=== PATIENT | male | born 1940 | race Caucasian/White ===

== ENCOUNTER → 2023-08-07 10:07 | Outpatient (REF) | payer OTHER, SELFPAY | LOC: HWRAD 10:07 | PROVIDERS: ATTENDING PHYSICIAN Internal Medicine Critical Care Medicine; FAMILY PHYSICIAN Family Medicine | DX: R63.4 Abnormal weight loss (principal); R05.3 Chronic cough | CPT/HCPCS: 71250 ==

== ENCOUNTER 2023-08-20 13:52 | Inpatient (IN) | payer OTHER, SELFPAY ==
[2023-08-20] VITALS (10 sets, daily range): BP systolic 106–142; BP diastolic 59–73; BMI 19.8
--- NOTE | 2023-08-20 09:54 | ED.GENMED ---
History of Present Illness
General
Chief Complaint: Breathing Problem
Source: patient
Exam Limitations: none
Time Seen by Provider: 08/20/23 09:29
Travel History
Have you had any contact with someone who has COVID-19?: No
Do you have any symptoms of coronavirus? Fever > 100 degrees, chills, cough, shortness of breath, sore throat, loss of taste or smell, muscle aches, or headache?: No
History of Present Illness
History of Present Illness:
82-year-old male with history of COPD, cardiac disease presents complaining of increased shortness of breath and cough over the past several days. He has been tired recently. He saw cardiology 2 weeks ago was diagnosed with new onset atrial
flutter. He had a Holter monitor that was just handed in 5 days ago. He also recently had a lung CAT scan per his daughter. However over the past several days they noted more productive cough. No measurable fever. He is having trouble because
of the cough. They deny any leg swelling or significant weight gain. No other complaints at this
Past History
Past History
ED Past Medical History: NM and Other (GI bleed, coronary artery disease with NM and stent, COPD, hypertension)
Social History
Tobacco: Smoker
Alcohol: None
Family History
Family History: CAD
Phy Exam
Physical Exam
Physical Exam:
General: Well-appearing male no acute respiratory distress
HEENT: Normocephalic atraumatic neck is supple
: Regular rate and rhythm no murmurs
Lungs: Wheeze heard at the left base otherwise clear
Extremities: No cyanosis or edema
Skin: Warm no rash
Scores
Heart Failure Risk
Heart Failure Risk Score: Not Applicable
Course
Orders/Labs/Results
Orders:
Orders
08/20/23 09:23
Electrocardiogram (*1) Urgent
Reason for Study: Chest Pain
EKG- Treatment ONCE
08/20/23 09:41
CR Chest - 2 Views Urgent
Comment:
Reason For Exam: cough, sob
08/20/23 10:05
COVID-19 Antigen Urgent
Source: Nasal Swab
Complete Blood Count/With Diff Urgent
Comprehensive Metabolic Panel Urgent
NT-proBNP Urgent
Troponin I Urgent
Influenza A+B Rapid Molecular Urgent
DEA Source: Nasal Swab
Specimen Description:
Abnormal Lab Results
08/20/23
10:05
RBC 4.26 L 10^6/uL
(4.70-6.10)
MCV 97.4 H fL
(80.0-94.0)
MCH 33.6 H pg
(27.0-31.0)
MPV 11.0 H fL
(7.4-10.4)
Absolute Neuts (auto) 7.1 H 10^3/uL
(1.4-6.5)
Absolute Monos (auto) 0.9 H 10^3/uL
(0.1-0.6)
Neutrophils % 77.2 H %
(42.2-75.2)
Lymphocytes % 12.6 L %
(20.5-51.1)
Monocytes % 9.5 H %
(1.7-9.3)
Sodium 133 L mmol/L
(135-145)
Chloride 97 L mmol/L
(98-107)
BUN 40 H mg/dl
(9-20)
Glucose 124 H mg/dl
(70-99)
AST 77 H U/L
(17-59)
08/20/23 10:05
08/20/23 10:05
Vital Signs
Initial and Last Documented VS:
Initial Vital Signs
Temp Pulse Resp BP Pulse Ox
97.5 F 69 16 124/70 95
08/20/23 09:19 08/20/23 09:19 08/20/23 09:19 08/20/23 09:19 08/20/23 09:19
Last Documented Vital Signs
Temp Pulse Resp BP Pulse Ox
97.5 F 70 17 109/66 93
08/20/23 09:19 08/20/23 12:30 08/20/23 12:30 08/20/23 12:00 08/20/23 12:30
MDM/Problems Addressed
Differential Diagnosis Includes:
Cough with shortness of breath. No evidence clinically of volume overload. EKG here she does show atrial flutter with 41 conduction. Will obtain BNP chest x-ray and labs.
I reviewed the chest CT scan dated August 07, 2023 which shows emphysema with bronchiectasis.
*Critical Care Note
Total Time (30-74mins, 75-104mins- exclusive of procedures): Not Applicable
Update Note
Update Note:
Workup here demonstrates negative chest x-ray. Patient however does go into bradycardic rhythm. At times he drops into the 30s with flutter. Patient is here with shortness of breath dyspnea on exertion. He has newly diagnosed a flutter. Will
keep in hospital for further evaluation cardiology and hospitalist made aware
ED Attending Note
-
Portions of this chart may have been created with voice recognition software.� Occasional wrong word or��sound alike� substitutions may have occurred due to the inherent limitations of voice recognition software.
Discharge Plan
Departure
Patient Disposition: Admit
Date of Disposition: 08/20/23
Time of Disposition: 12:42
Admit to: Telemetry
Presentation/result/management discussed w/ accepting MD/DO: Hospitalist
Discharge Problem:
Bradycardia
Prescriptions:
No Action
atorvastatin [Lipitor] 80 MG tablet
80 mg PO DAILY
carvedilol 6.25 MG tablet
6.25 mg PO BID
aspirin 81 MG tablet,delayed release (DR/EC)
81 mg PO DAILY
pantoprazole [Protonix] 40 MG tablet,delayed release (DR/EC)
40 mg PO DAILY
tthvxdjuxsnw-vomindlz-ankoiz [Centrum Silver] 1 EACH tablet
1 ea PO DAILY
hydrocodone-acetaminophen 1 TABLET tablet
0.5 tab PO Q4HPRN PRN (Reason: pain)
irbesartan 150 MG tablet
150 mg PO DAILY
Referrals:
Jessica Madrigal PA [Family Provider] -
Interventions
Interventions:
*Risk Screen - Suicide Last Done: 08/20/23 10:15
*General Assessment Last Done: 08/20/23 10:15
*Neglect/Abuse Screening Last Done: 08/20/23 10:15
*ED COVID-19 Vaccine History Last Done: 08/20/23 09:19
ED- Cardiac Assessment Last Done: 08/20/23 10:30
ED- Pulmonary Assessment Last Done: 08/20/23 10:15
[2023-08-20 10:33] LABS: ALT (SGPT) 28 U/L (0-50); AST (SGOT) 77 U/L (17-59); Albumin 3.6 g/dl (3.5-5.0); Alkaline Phosphatase 80 U/L (38-126); Blood Urea Nitrogen 40 mg/dl (9-20); Calcium 9.1 mg/dl (8.4-10.2); Carbon Dioxide 27 mmol/L (22-30); Chloride 97 mmol/L (98-107); Estimated Creatinine Clearance 42 ml/min; Glucose 124 mg/dl (70-99); Potassium 4.5 mmol/L (3.5-5.1); Sodium 133 mmol/L (135-145); Total Bilirubin 0.6 mg/dl (0.2-1.3); Total Protein 6.3 g/dl (6.3-8.2); eGFR > 60.00
[2023-08-20 10:45] LABS: NT-proBNP 1210 pg/ml; Troponin I 0.034 ng/ml
[2023-08-20 10:47] LABS: % Basophils 0.2 % (0-2); % Eosinophils 0.2 % (0-6); % Immature Granulocytes 0.3 % (0-0.5); % Lymphocytes 12.6 % (20.5-51.1); % Monocytes 9.5 % (1.7-9.3); % Neutrophils 77.2 % (42.2-75.2); Absolute Lymphocytes 1.2 10^3/uL (1.2-3.4); Absolute Monocytes 0.9 10^3/uL (0.1-0.6); Absolute Neutrophils 7.1 10^3/uL (1.4-6.5); COVID-19 Antigen Negative (Negative); Hematocrit 41.5 % (39.0-52.0); Hemoglobin 14.3 g/dL (13.0-18.0); Mean Corp Hgb Conc. 34.5 g/dL (33.0-37.0); Mean Corpuscular Hgb 33.6 pg (27.0-31.0); Mean Corpuscular Volume 97.4 fL (80.0-94.0); Nucleated Red Blood Cells % 0 % (-); Platelet Count 188 10^3/uL (130-400); Red Blood Cell Count 4.26 10^6/uL (4.70-6.10); Red Cell Dist. Width 13.3 % (11.5-14.5); White Blood Cell Count 9.3 10^3/uL (4.8-10.8)
--- NOTE | 2023-08-20 13:08 | HPS.HSE ---
Family Physician
-
Family Physician: Jessica Madrigal
Chief Complaint
-
Shortness of breath, intermittent wet cough
History of Present Illness
HPI: 82-year-old male with PMH COPD, A flutter, p/w CP, SOB and wet cough that started a few days ago.�
He saw cardiology 2 weeks ago and was diagnosed with new onset atrial flutter.�He had a Holter monitor that was just handed in 5 days ago.�He also recently had a lung CAT scan per his daughter.� However over the past several days they noted more
productive cough.� No measurable fever.� He is having trouble because of the cough.� They deny any leg swelling or significant weight gain.� No other complaints at this
Medical History
Past Medical History
Past Medical History: Reports Other
Additional Past Medical History:
COPD
A flutter
AAA
Past Surgical History: Reports Other
Additional Past Surgical History:
cardiac stent 2004
Social History
Tobacco: Smoker (Half pack per day for about 60 years)
Alcohol: None
Living: With Family
Family History
Family History: Not pertinent
Allergies / Home Medications
Allergies reflects when Allergies were last updated in [employer].
Home Medications with original date entered in [employer]
Allergy/Medication List:
Allergies
Allergy/AdvReac Type Severity Reaction Status Date / Time
Bee Stings Allergy Anaphylaxis Uncoded 08/20/23 09:22
Home Medications
aspirin 81 mg tablet,delayed release 81 mg PO DAILY 05/17/09
atorvastatin 80 mg tablet (Lipitor) 80 mg PO DAILY 05/17/09
irbesartan 150 mg tablet 150 mg PO DAILY 11/24/17
albuterol sulfate 2.5 mg/3 mL (0.083 %) solution for nebulization 2.5 mg inhalation R TID 08/20/23
albuterol sulfate 90 mcg/actuation aerosol inhaler 1 puff inhalation R Q4HPRN PRN sob 08/20/23
carvedilol 12.5 mg tablet 12.5 mg PO BID 08/20/23
doxycycline hyclate 100 mg tablet 100 mg PO BID 08/20/23
fluticasone fur. 200 mcg-umeclid 62.5 mcg-vilant 25 mcg inhalat.powder (Trelegy Ellipta) 1 inh inhalation R DAILY 08/20/23
guaifenesin 600 mg tablet, extended release 12 hr (Mucinex) 600 mg PO QPM 08/20/23
hydrocodone 10 mg-acetaminophen 325 mg tablet 1 tab PO TIDPRN PRN severe pain 08/20/23
tamsulosin 0.4 mg capsule 0.4 mg PO HS 08/20/23
Review of Systems
-
Respiratory: Reports See HPI
Cardiac: Reports See HPI
Physical Exam
Vital Signs
Vital Signs
Temp Pulse Resp BP Pulse Ox
36.4 C 70 17 109/66 93
08/20/23 09:19 08/20/23 12:30 08/20/23 12:30 08/20/23 12:00 08/20/23 12:30
Physical Exam
General: Well Developed, Well Nourished, No Apparent Distress, Comfortable and Conversant
HEENT: NormoCephalic, Moist mucous membranes and Atraumatic
Respiratory: Clear and Non Labored Respirations; No Accessory Resp Muscle Use
Cardiac: S1/S2 and Regular Rhythm; No Murmur or Rub
GI: Soft, Non Tender, Non Distended and Normal Bowel Sounds; No Organomegaly
Rectal: Deferred by Provider
Musculoskeletal: No Clubbing, No Cyanosis and No Edema
Skin: No Rash
Neuro: Awake
Psych: Calm and Intact Judgment/Insight
Laboratory Results
-
08/20/23 10:05
08/20/23 10:05
Laboratory Results
Total Bilirubin 0.6 mg/dl (0.2-1.3) 08/20/23 10:05
AST 77 U/L (17-59) H 08/20/23 10:05
ALT 28 U/L (0-50) 08/20/23 10:05
Alkaline Phosphatase 80 U/L (38-126) 08/20/23 10:05
Troponin I 0.034 ng/ml 08/20/23 10:05
Data Reviewed
-
Diagnostic Radiology: Report Reviewed by me
Lab Data: Labs Reviewed by me
Impression/Plan
-
HPI: 82-year-old male with PMH COPD, A flutter, p/w CP, SOB and wet cough that started a few days ago.�
He saw cardiology 2 weeks ago and was diagnosed with new onset atrial flutter.�He had a Holter monitor that was just handed in 5 days ago.�He also recently had a lung CAT scan per his daughter.� However over the past several days they noted more
productive cough.� No measurable fever.� He is having trouble because of the cough.� They deny any leg swelling or significant weight gain.� No other complaints at this
A/P:
# SOB, mild chest pain, wet cough likely due to acute on chronic systolic heart failure
# recent diagnosis of atrial flutter s/p Holter monitor
CXR without cardiopulmonary process.
Of note, patient's weight is not significantly higher than before
Start IV Lasix 40 mg x1, then Lasix 20 mg daily, check daily weight, I/O
Check echo
Card CS
# Troponin elevation likely non-ischemic myocardial injury
Chest pain has much resolved
Troponin 0.034, cont to trend to plateau/peak
# Bradycardia likely due to coreg
Hold further Coreg
# Hyponatremia
# Elevated AST likely due to acute CHF
# COPD
# Active smoking, nicotine dependence
Provide nicotine patch
DVT ppx: Lovenox SQ
FC
[2023-08-20] MEDS: LASIX 40 MG IV (14:20)
--- NOTE | 2023-08-20 14:52 | CM ---
Patient seen at bedside. Patient states that he lives with his son in law and that the home is a 5 bedroom home. Patient has no difficulty with getting around and uses a cane only occasionally in grass. Patient has no other DME. Patient stated he
has no VN or past need for SNF. Patient stated that his PCP is Dr. Madrigal and he uses the [facility] in [place]. Patient states that he is independent of ADL's and IADL's. Patient drives self. CM will continue to follow for discharge planning needs.
Plan; home with no needs anticipated.
--- NOTE | 2023-08-20 15:17 | CON.CAR ---
Addendum entered and electronically signed by Michael Saleh MD 08/20/23 16:50:
I saw and examined the patient.
The DRIER HELPER or PA's note was reviewed and I agree with the note.
Comment: General: Well developed, well nourished in NAD.
Neck: Supple, no JVD, HJR, carotids +2 B/L, no bruits bilaterally.
Heart: Non displaced PMI, irregular, no murmurs, No S3, S4, no rubs.
Lungs: Clear to auscultation bilaterally, no wheeze, rhonchi, rubs bilaterally,
normal expiratory phase.
Abdomen: Normal bowel sounds, soft, non-tender, non-distended.
Extremities: No clubbing, cyanosis or edema bilaterally.
Neuro: Grossly nonfocal, awake, alert and oriented x3.
Will decrease Coreg dose and assess bradycardia. Will start Eliquis as well. Check echocardiogram. Doubt CHF. Being treated as possible mild COPD exacerbation. Hopefully stable for discharge on 08/20
Original Note:
Consultation
Consultation Request
Date/Time Consultation Performed: 08/20/23
Requesting Provider: Al Beltran PA-C
Performing Provider: Maxine Julian PA-C for Dr. Saleh
Reason for Consultation: bradycardia, aflutter
Medical History
-
Chief Complaint: SOB, fatigue
History of Present Illness:
Patient is an 82-year-old male with history of CAD including MICA SIZER of RCA and LCx PCI in 2004, ischemic cardiomyopathy with EF 45%, hypertension, abdominal aortic aneurysm, COPD/emphysema with ongoing smoking, renal insufficiency who was recently
diagnosed with atrial flutter, rate controlled of unclear duration. He underwent 7-day monitoring specialist which was completed, however results not yet available. He was ordered echocardiogram, scheduled for 09/29/2023. Head CT was also discussed due
to symptoms of vague fuzziness/hollow feeling in his head prior to Eliquis being started. He was also recently seen by pulmonary and treated with a course of doxycycline for bronchitis. He had recent CT of the chest with evidence of emphysema. He
presents to emergency room due to complaints of cough and shortness of breath. Per daughter he has felt washed out and tired over the last several days. Also with congestion and 'fullness' in his chest. No lower extremity edema or weight gain. He
denies shortness of breath currently. He states he chronically has some wheezing. He appears somewhat forgetful, and was not personally able to tell me why he was in the emergency room. Cardiology consulted as he was noted to be markedly
bradycardic in aflutter on telemetry. On Coreg 12.5 mg twice daily as an outpatient. Currently heart rate in the 60s on telemetry in ER.
PMH:
recent diagnosis atrial flutter, rate controlled of unclear duration
CAD with prior remote 'silent' MIs, PTCA to mid RCA, MICA SIZER of distal RCA and LCx PCI in 2004
ischemic cardiomyopathy with EF 45%
hypertension
dyslipidemia
abdominal aortic aneurysm
COPD/emphysema
ongoing smoking
Chronic bronchitis
renal insufficiency
Past Medical History
Past Medical History: Other (in HPI)
Social History
Tobacco: Smoker (1/2 ppd)
Alcohol: None
Living: With Family
Employment: Retired
Family History
Family History: Reviewed & Not Pertinent
Allergies / Home Medications
Allergy/AdvReac Type Severity Reaction Status Date / Time
Bee Stings Allergy Anaphylaxis Uncoded 08/20/23 09:22
Medication Instructions Recorded Confirmed Type
aspirin 81 mg tablet,delayed 81 mg PO DAILY 05/17/09 08/20/23 History
release
atorvastatin 80 mg tablet (Lipitor) 80 mg PO DAILY 05/17/09 08/20/23 History
irbesartan 150 mg tablet 150 mg PO DAILY 11/24/17 08/20/23 History
albuterol sulfate 2.5 mg/3 mL 2.5 mg inhalation R TID 08/20/23 08/20/23 History
(0.083 %) solution for nebulization
albuterol sulfate 90 mcg/actuation 1 puff inhalation R Q4HPRN PRN sob 08/20/23 08/20/23 History
aerosol inhaler
carvedilol 12.5 mg tablet 12.5 mg PO BID 08/20/23 08/20/23 History
doxycycline hyclate 100 mg tablet 100 mg PO BID 08/20/23 08/20/23 History
fluticasone fur. 200 mcg-umeclid 1 inh inhalation R DAILY 08/20/23 08/20/23 History
62.5 mcg-vilant 25 mcg
inhalat.powder (Trelegy Ellipta)
guaifenesin 600 mg tablet, 600 mg PO QPM 08/20/23 08/20/23 History
extended release 12 hr (Mucinex)
hydrocodone 10 mg-acetaminophen 1 tab PO TIDPRN PRN severe pain 08/20/23 08/20/23 History
325 mg tablet
tamsulosin 0.4 mg capsule 0.4 mg PO HS 08/20/23 08/20/23 History
Review of Systems
-
History Source: Patient and Family
All other systems: Negative unless noted
Physical Exam
Vital Signs
Temp Pulse Resp BP Pulse Ox
97.5 F 68 15 128/73 94
08/20/23 09:19 08/20/23 14:45 08/20/23 14:45 08/20/23 14:20 08/20/23 13:30
Lab Results
08/20/23 10:05
08/20/23 10:05
Troponin I 0.034 ng/ml 08/20/23 10:05
Pjf-V-Rmefeemeipr Pept 1210 pg/ml 08/20/23 10:05
Physical Exam
General: No Apparent Distress and Comfortable
HEENT: Normocephalic, Anicteric and Moist Mucous Membranes
Respiratory: Wheezes (mild exp wheezes R>L) and Non Labored Respirations
Cardiac: S1/S2 and Irregular Rhythm
GI: Soft, Non Tender, Non Distended and Normal Bowel Sounds
Musculoskeletal: No Clubbing, No Cyanosis and No Edema
Skin: Warm and Dry
Neuro: Awake, Alert, Oriented (to self, place) and Other (forgetful at times)
Impression / Plan
-
Primary Nurse Practitioner Physician Assistant: Dr. Hutson
Assessment:
Presentation with cough, SOB
COPD exacerbation
recent diagnosis atrial flutter, rate controlled of unclear duration, currently markedly [place]
CAD with prior remote 'silent' MIs, PTCA to mid RCA, MICA SIZER of distal RCA and LCx PCI in 2004
ischemic cardiomyopathy with EF 45%
hypertension
dyslipidemia
abdominal aortic aneurysm
COPD/emphysema
ongoing smoking
Chronic bronchitis
renal insufficiency
hyponatremia, mild
ECHO 10/31/2021: EF 45%, basal to mid inferolateral hypokinesis, basal inferior akinesis, stage I diastolic dysfunction, mild MR, mildly dilated left atrium
Lexiscan nuclear stress test 10/31/2021: Fixed defect in basal inferolateral, basal inferior, mid inferolateral, mid inferior segments consistent with infarction, EF 31%, no active significant coronary disease
Plan:
-Patient presents with cough and shortness of breath. covid and flu negative. [place] to be COPD exacerbation. Continue treatment per primary service
-proBNP 1210. Chest x-ray without acute cardiopulmonary disease. Does not appear volume overloaded. Doubt CHF. Of note was given 40 mg IV Lasix x 1 in ER 08/19. Assess response
-Remains in atrial flutter with markedly bradycardic heart rates at times. OP monitoring specialist not read as of yet. Currently heart rates improved in the 60s. Will decrease dose of Coreg from 12.5 mg twice daily to 3.125 mg twice daily and follow
closely on telemetry
-Check echo, last from 2021 with results as above. Cancel outpatient appointment for 09/28
-[id number] score of 4 for age, HTN, vascular disease. will plan to start eliquis 2.5mg BID based on age and weight. CM to assess cost to patient. OP head CT prior to starting OAC was discussed however patient without focal deficits. denies
history of bleeding or falls, confirmed with patient's daughter. stop asa as stents remote to reduce bleeding risk
-check TSH
-he is scheduled for OP abd US to reassess AAA
-d/w daughter via telephone
Data Reviewed
-
EKG: Tracing Personally Visualized and interpreted
Radiology: Report Reviewed by me
Medical Tests (Nuc Med, Echo etc): Report Reviewed by me
Labs: Labs Reviewed by me
Old Records: Reviewed
[2023-08-20] MEDS: VENTOLIN NEBULES INH (17:48)
[2023-08-20] MEDS: NICODERM TRANSDERMAL TRANSDERM (17:50)
[2023-08-20 19:05] LABS: Troponin I 0.028 ng/ml
[2023-08-20] MEDS: VENTOLIN NEBULES 2.5 MG INH (19:48)
[2023-08-20] MEDS: SYMBICORT 160/4.5 MCG INHALER 2 PUFF INH (19:48)
[2023-08-20] MEDS: FLOMAX 0.400000000000000022 MG PO (20:34)
[2023-08-20] MEDS: VIBRAMYCIN 100 MG PO (20:34)
[2023-08-20] MEDS: ELIQUIS 2.5 MG PO (20:34)
[2023-08-20] MEDS: COREG 3.125 MG PO (20:34)
[2023-08-20] MEDS: NORCO 5/325 2 TABLET PO (20:38)
[2023-08-21 00:55] LABS: Troponin I 0.032 ng/ml
[2023-08-21 03:55] VITALS: BP 122/65
[2023-08-21 06:00] VITALS: BMI 18.4
[2023-08-21 07:00] VITALS: BP 122/85
[2023-08-21] MEDS: SYMBICORT 160/4.5 MCG INHALER 2 PUFF INH ×2 (07:26→20:00)
[2023-08-21] MEDS: SPIRIVA RESPIMAT 2.5 MCG 2 PUFF INH (07:26)
[2023-08-21] MEDS: VENTOLIN NEBULES 2.5 MG INH ×3 (07:26→20:00)
[2023-08-21 07:39] LABS: Hematocrit 43.9 % (39.0-52.0); Hemoglobin 14.9 g/dL (13.0-18.0); Mean Corp Hgb Conc. 33.9 g/dL (33.0-37.0); Mean Corpuscular Hgb 33.6 pg (27.0-31.0); Mean Corpuscular Volume 99.1 fL (80.0-94.0); Mean Platelet Volume 10.7 fL (7.4-10.4); Platelet Count 200 10^3/uL (130-400); Red Blood Cell Count 4.43 10^6/uL (4.70-6.10); Red Cell Dist. Width 13.3 % (11.5-14.5); White Blood Cell Count 9.4 10^3/uL (4.8-10.8)
[2023-08-21 07:57] LABS: Blood Urea Nitrogen 51 mg/dl (9-20); Calcium 9.4 mg/dl (8.4-10.2); Carbon Dioxide 30 mmol/L (22-30); Chloride 96 mmol/L (98-107); Estimated Creatinine Clearance 36 ml/min; Glucose 114 mg/dl (70-99); Magnesium 1.5 mg/dl (1.6-2.3); Potassium 4.2 mmol/L (3.5-5.1); Sodium 135 mmol/L (135-145); eGFR 59.63
[2023-08-21] MEDS: LASIX 20 MG IV (08:09)
[2023-08-21] MEDS: LIPITOR 80 MG PO (08:09)
[2023-08-21] MEDS: VIBRAMYCIN 100 MG PO (08:09)
[2023-08-21] MEDS: COREG 3.125 MG PO (08:09)
[2023-08-21] MEDS: NICODERM TRANSDERMAL 14 MG TRANSDERM (08:09)
[2023-08-21] MEDS: ELIQUIS 2.5 MG PO ×2 (08:09→19:52)
[2023-08-21 10:46] VITALS: BP 114/70
--- NOTE | 2023-08-21 11:07 | W.PN.CARDCBS ---
Addendum entered and electronically signed by Kendrick Thomas MD 08/21/23 14:32:
I saw and examined the patient.
The Direct Care Counselor's note was reviewed and I agree with the note.
Comment:
GEN: No distress, awake, Ox3
HEENT: supple, anicteric, mmm
LUNGS: scatt rhonchi
CV: Irreg, S1/S2, / syst LSB, no gallop
ABD: soft, BS+, NT/ND
EXT: No edema
NEURO: Gross non-focal
SKIN: No rash
plan:
Still having episodes of elevated heart rate in atrial flutter. Will increase Coreg to 6.25 mg p.o. twice daily and watch for bradycardia. Outpatient Coreg dose was 12.5 mg twice daily.
Continue Eliquis.
Continue gentle diuresis and treatment of COPD with IV Lasix.
Continue medical therapy for coronary artery disease. Continue Coreg, high-dose atorvastatin, and Eliquis.
Original Note:
Today's Communication / Plan
-
increase coreg to 6.25mg BID
echo pending
TSH pending
continue eliquis 2.5mg BID
Impression / Plan
-
Primary Director Strategy: Dr. Hutson
Assessment:
Presentation with cough, SOB
COPD exacerbation
recent diagnosis atrial flutter, rate controlled of unclear duration, currently markedly [place]
CAD with prior remote 'silent' MIs, PTCA to mid RCA, QUANTITATIVE MANAGER of distal RCA and LCx PCI in 2004
ischemic cardiomyopathy with EF 45%
hypertension
dyslipidemia
abdominal aortic aneurysm
COPD/emphysema
ongoing smoking
Chronic bronchitis
renal insufficiency
hyponatremia, mild
ECHO 10/31/2021: EF 45%, basal to mid inferolateral hypokinesis, basal inferior akinesis, stage I diastolic dysfunction, mild MR, mildly dilated left atrium
Lexiscan nuclear stress test 10/31/2021: Fixed defect in basal inferolateral, basal inferior, mid inferolateral, mid inferior segments consistent with infarction, EF 31%, no active significant coronary disease
Plan:
-Patient presents with cough and shortness of breath. covid and flu negative. [place] to be COPD exacerbation. Continue treatment per primary service. patient remains with productive cough
-s/p dose of 40mg IV lasix 08/19 and IV lasix 20mg 08/20. weight down significantly if accurate. does not appear volume overloaded on exam. will await echo and likely stop further IV lasix in AM. was not on diuretic prior to admission
-remains in aflutter, now with improved HRs. at times with tachycardia particularly with ambulation. will increase coreg to 6.25mg BID and follow on tele (was on 12.5mg BID prior to admission)
-echo pending
-eliquis 2.5mg BID started this admission. OP asa stopped
-check TSH
-OP irbesartan on hold
-he is scheduled for OP abd US to reassess AAA
-d/w nursing
Progress Note - Director Strategy
Subjective
Date of Service: August 21, 2023
reports continued productive cough. no SOB, palpitations.
Objective
Labs:
08/21/23 07:23
08/21/23 07:23
Labs
Hgb 14.9 g/dL (13.0-18.0) 08/21/23 07:23
Hct 43.9 % (39.0-52.0) 08/21/23 07:23
Plt Count 200 10^3/uL (130-400) 08/21/23 07:23
Sodium 135 mmol/L (135-145) 08/21/23 07:23
Potassium 4.2 mmol/L (3.5-5.1) 08/21/23 07:23
BUN 51 mg/dl (9-20) H 08/21/23 07:23
Creatinine 1.2 mg/dL (0.7-1.3) 08/21/23 07:23
Glucose 114 mg/dl (70-99) H 08/21/23 07:23
Troponins
08/20/23 08/20/23 08/21/23
10:05 18:27 00:14
Troponin I 0.034 0.028 0.032
08/21/23
07:23
Troponin I 0.030
Vital Signs and I&O:
Vital Signs
Temp Pulse Resp BP Pulse Ox
97.6 F 80 14 114/70 97
08/21/23 10:46 08/21/23 10:46 08/21/23 10:46 08/21/23 10:46 08/21/23 10:46
Vital Signs
Temp Pulse Resp BP Pulse Ox
97.6 F 80 14 114/70 97
08/21/23 10:46 08/21/23 10:46 08/21/23 10:46 08/21/23 10:46 08/21/23 10:46
Intake & Output
08/19/23 08/20/23 08/21/23 08/22/23
07:59 07:59 07:59 07:59
Intake Total 960 / 960
Output Total 350 / 350
Balance 610 / 610
Physical Exam
Physical Exam
GEN: No distress, awake, alert, oriented x3
HEENT: supple, anicteric, mmm, eomi
LUNGS: mild exp wheezes B/L
CV: Irreg, S1/S2, no murmur
ABD: soft, BS+, NT/ND
EXT: No cyanosis, clubbing, edema
NEURO: Gross non-focal
SKIN: Warm, pink, dry. No rash
--- NOTE | 2023-08-21 12:03 | W.PN.HOSP.TC ---
Today's Communication/Plan
-
see A/P
Assessment / Plan
Assessment / Plan
HPI: 82-year-old male with PMH COPD, A flutter, p/w CP, SOB and wet cough that started a few days ago.�
He saw cardiology 2 weeks ago and was diagnosed with new onset atrial flutter.�He had a Holter monitor that was just handed in 5 days ago.�He also recently had a lung CAT scan per his daughter.� However over the past several days they noted more
productive cough.� No measurable fever.� He is having trouble because of the cough.� They deny any leg swelling or significant weight gain.� No other complaints at this
A/P:
# SOB, mild chest pain, wet cough due to acute on chronic systolic heart failure
# recent diagnosis of atrial flutter s/p Holter monitor
CXR without cardiopulmonary process.
Of note, patient's weight is not significantly higher than before
s/p IV Lasix 40 mg x1, cont IV Lasix 20 mg daily, low threshold to stop soon, monitor daily weight, I/O
Check echo
noted coreg resumed and increased to 6.25mg BID due to tachycardia overnight, monitor HR closely
Pending TSH
continue eliquis 2.5mg BID
Card on board
# Troponin elevation due to non-ischemic myocardial injury
Chest pain resolved
Troponin plateaued at 0.03
# Bradycardia due to coreg
Coreg resumed and increased to 6.25mg BID by card due to tachycardia, monitor HR closely
# Hyponatremia, resolved
# Elevated AST likely due to acute CHF �
trend LFT
# COPD
# Active smoking, nicotine dependence
Provide nicotine patch
# Recent diagnosis of bronchiolitis and pt was started with doxycycline
No resp symptom, No need to cont doxycycline
DVT ppx: Lovenox SQ
FC
updated daughter Jacque on the phone (she is the primary contact)
Anticipated Discharge: 24 - 48 hours
Subjective/Interval History
-
Date of Service: August 21, 2023
Objective Data
-
Labs:
Laboratory Results
08/21/23
07:23
WBC 9.4
Hgb 14.9
Hct 43.9
Plt Count 200
Sodium 135
Potassium 4.2
Chloride 96 L
Carbon Dioxide 30
BUN 51 H
Creatinine 1.2
Glucose 114 H
Calcium 9.4
Vital Signs:
Vital Signs
Temp Pulse Resp BP Pulse Ox
36.4 C 80 14 114/70 95
08/21/23 10:46 08/21/23 10:46 08/21/23 10:46 08/21/23 10:46 08/21/23 11:10
I&O
08/20/23 08/21/23 08/22/23
06:59 06:59 06:59
Intake Total 960 / 960
Output Total 350 / 350
Balance -350 / -350 960 / 960
Review of Systems
-
All other systems: Reviewed and negative
Physical Exam
-
General: Well Developed, Well Nourished, No Apparent Distress, Comfortable and Conversant; Negative Respiratory Distress
HEENT: Normocephalic, Atraumatic, Nose Appears Normal and Ears Appear Normal; Negative Oxygen
Respiratory: Clear to Auscultation and Non Labored Respirations; Negative Accessory Resp Muscle Use
Cardiac: Regular Rhythm and S1/S2
GI: Soft, Nontender, Nondistended and Normal Bowel Sounds
Skin: Warm and Dry
Neuro: Awake, Alert, Oriented and AO x 3
Psych: Calm and Intact Judgement/Insight
Data Reviewed
-
Labs: Labs Reviewed by me
[2023-08-21 12:18] VITALS: BMI 18.4
[2023-08-21 12:36] LABS: ALT (SGPT) 28 U/L (0-50); AST (SGOT) 67 U/L (17-59); Albumin 3.8 g/dl (3.5-5.0); Alkaline Phosphatase 80 U/L (38-126); Direct Bilirubin 0.3 mg/dl (0.0-0.4); Total Bilirubin 0.6 mg/dl (0.2-1.3); Total Protein 6.6 g/dl (6.3-8.2)
[2023-08-21 13:15] LABS: TSH Reflex To Free T4 1.75 uIU/ml (0.47-4.68)
[2023-08-21 15:00] VITALS: BP 127/76
--- NOTE | 2023-08-21 15:03 | W.PN.UPDATE ---
Update Note
Progress Note Update
recent OP residential monitor with 100% atrial flutter, average heart rate 69, 15 episodes of 3 beats NSVT, 2 pauses with longest 2.7 seconds
--- NOTE | 2023-08-21 16:04 | CM ---
CM following re: d/c planning
Chart reviewed
CM met with patient at bedside; IA completed
Pt states he resides with his son-in-law in a split-level home no JEROD however inside there are 6 steps up and 6 steps down
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
Pt has no previous hx of VN/SNF/DME
Pt has prescription coverage and rx's are filled at [facility] on [address] [facility]
Pt PCP-Jessica Madrigal
CM addressed consult to emery the cost of Eliquis 2.5mg BID and per [facility] for a 30 day supply the cost is $72.60
CM notified the provider of the same & will also provide the patient with a 30 day coupon for the medication
No needs are anticipated once stable for d/c
CM will continue to follow and assist with any additional needs at d/c as indicated
PLAN; d/c home no needs anticipated
[2023-08-21] MEDS: NORCO 5/325 2 TABLET PO (18:04)
[2023-08-21 19:05] VITALS: BP 106/58
[2023-08-21] MEDS: FLOMAX 0.400000000000000022 MG PO (19:52)
[2023-08-21] MEDS: COREG 6.25 MG PO (19:54)
[2023-08-22] VITALS (22 sets, daily range): BP systolic 68–129; BP diastolic 38–106; PULSE 69–75; BMI 18.4
[2023-08-22 07:18] LABS: Hematocrit 36.8 % (39.0-52.0); Hemoglobin 12.6 g/dL (13.0-18.0); Mean Corp Hgb Conc. 34.2 g/dL (33.0-37.0); Mean Corpuscular Hgb 33.3 pg (27.0-31.0); Mean Corpuscular Volume 97.4 fL (80.0-94.0); Mean Platelet Volume 11.1 fL (7.4-10.4); Platelet Count 191 10^3/uL (130-400); Red Blood Cell Count 3.78 10^6/uL (4.70-6.10); Red Cell Dist. Width 13.3 % (11.5-14.5); White Blood Cell Count 9.2 10^3/uL (4.8-10.8)
[2023-08-22 07:38] LABS: ALT (SGPT) 22 U/L (0-50); AST (SGOT) 41 U/L (17-59); Albumin 3.3 g/dl (3.5-5.0); Alkaline Phosphatase 67 U/L (38-126); Blood Urea Nitrogen 77 mg/dl (9-20); Calcium 8.9 mg/dl (8.4-10.2); Carbon Dioxide 26 mmol/L (22-30); Chloride 99 mmol/L (98-107); Direct Bilirubin 0.2 mg/dl (0.0-0.4); Estimated Creatinine Clearance 33 ml/min; Glucose 100 mg/dl (70-99); Magnesium 1.5 mg/dl (1.6-2.3); Potassium 4.4 mmol/L (3.5-5.1); Sodium 132 mmol/L (135-145); Total Bilirubin 0.7 mg/dl (0.2-1.3); Total Protein 5.7 g/dl (6.3-8.2); eGFR 54.17
[2023-08-22] MEDS: SPIRIVA RESPIMAT 2.5 MCG 2 PUFF INH (08:05)
[2023-08-22] MEDS: SYMBICORT 160/4.5 MCG INHALER 2 PUFF INH ×2 (08:05→19:43)
[2023-08-22] MEDS: VENTOLIN NEBULES 2.5 MG INH ×2 (08:05→14:22)
[2023-08-22] MEDS: COREG PO (09:14)
[2023-08-22] MEDS: LASIX IV ×2 (09:15→09:39)
[2023-08-22] MEDS: ELIQUIS 2.5 MG PO (09:15)
[2023-08-22] MEDS: LIPITOR 80 MG PO (09:16)
[2023-08-22] MEDS: NICODERM TRANSDERMAL 14 MG TRANSDERM (09:16)
[2023-08-22] MEDS: FLUSH (NSS) 2 FLUSH IV (09:16)
[2023-08-22] MEDS: NSS 250 IV ×2 (09:46→12:10)
--- NOTE | 2023-08-22 09:50 | PTCARENOTE ---
patient reporting feeling dizzy and lightheaded after walking to bathroom. ortho vitals taken. standing BP 68/42 with heart rate 75, patient not able to stand long due to feeling lightheaded. assisted to lie down in bed and instructed not to get
up and to call if he needed to or if any changes. call alves in reach. Dr Torres made aware of above and ordered NSS IV bolus. daughter at bedside. plan of care on going.
[2023-08-22] MEDS: MAGNESIUM SULFATE 50 IV (10:21)
--- NOTE | 2023-08-22 10:24 | PTCARENOTE ---
nss bolus completed. BP 109/59. resting in bed comfortably. plan of care on going.
--- NOTE | 2023-08-22 11:33 | W.PN.CARDCBS ---
Addendum entered and electronically signed by Galen Godinez DO 08/22/23 15:19:
I saw and examined the patient.
The Horticultural Farm Manager's note was reviewed and I agree with the note.
Comment:
Mild abdominal discomfort, comes and goes, sharp in nature, patient reports that he feels this from time to time chronically. Mild lightheadedness with standing, no syncope. No other complaints; no cp, sob, palpitations, pnd, orthopnea, melena,
hematochezia, or edema.
GEN: No distress, awake, alert, oriented
HEENT: supple, anicteric, mmm, eomi
LUNGS: mild exp wheezes B/L
CV: Irreg, S1/S2, no murmur
ABD: soft, BS+, NT/ND
EXT: No cyanosis, clubbing, edema
NEURO: Gross non-focal
SKIN: Warm, pink, dry. No rash
A/P as below
IVF, hold lasix; encourage PO
oral BB in Am if tolerating
Check orthostatic vitals
Hbg noted decreased from yesterday; check Heme stool; monitor HH
Replete electrolytes
Monitor on tele
Eliquis 2.5 mg BID for now
Original Note:
Today's Communication / Plan
-
additional 250cc bolus
no further lasix
replete mag
attempt to transition to toprol in AM
follow HR trends
eliquis 2.5mg BID
Impression / Plan
-
Primary Flat Surfacer Jewel: Dr. Hutson
Assessment:
Presentation with cough, SOB
COPD exacerbation
recent diagnosis atrial flutter, rate controlled of unclear duration, currently markedly [place]
CAD with prior remote 'silent' MIs, PTCA to mid RCA, MEDICINE MAN of distal RCA and LCx PCI in 2004
ischemic cardiomyopathy with EF 45%
hypertension
dyslipidemia
abdominal aortic aneurysm
COPD/emphysema
ongoing smoking
Chronic bronchitis
renal insufficiency
hyponatremia, mild
ECHO 10/31/2021: EF 45%, basal to mid inferolateral hypokinesis, basal inferior akinesis, stage I diastolic dysfunction, mild MR, mildly dilated left atrium
Lexiscan nuclear stress test 10/31/2021: Fixed defect in basal inferolateral, basal inferior, mid inferolateral, mid inferior segments consistent with infarction, EF 31%, no active significant coronary disease
ECHO 08/21/23: EF 50 to 55%, possible basal inferior hypokinesis, moderate LVH, dilated RV, biatrial dilatation, MAC, mild to moderate MR, aortic sclerosis, mild TR, PAP 30 to 35 mmHg
Plan:
-Patient presents with cough and shortness of breath. covid and flu negative. [place] to be COPD exacerbation. Continue treatment per primary service.
-s/p dose of 40mg IV lasix 08/19 and IV lasix 20mg 08/20, and weight down significantly if accurate, however suspect patient did not have acute CHF and now is dehydrated as was dizzy with standing and + ortho VS 08/21. Cr up to 1.3. was given 250cc
bolus per primary service this morning. will give another 250cc now. no history of CHF and was not on diuretic prior to admission
-remains in aflutter and HRs climbing especially with ambulation. discussed with hospitalist. will plan to resume toprol 25mg daily in AM with hold parameters as better for HR control, less BP effect (was on coreg 12.5mg BID prior to admission). may
need BB uptitration as able
-echo with results as above
-eliquis 2.5mg BID started this admission. OP asa stopped
-TSH WNL
-replete mag
-OP irbesartan stopped
-he is scheduled for OP abd US to reassess AAA
-d/w nursing. d/w hospitalist
Progress Note - Flat Surfacer Jewel
Subjective
Date of Service: August 22, 2023
appears brighter today. denies CP, SOB, palpitations. dizziness with sitting/standing this AM
Objective
Labs:
08/22/23 06:54
08/22/23 06:54
Labs
Hgb 12.6 g/dL (13.0-18.0) L 08/22/23 06:54
Hct 36.8 % (39.0-52.0) L 08/22/23 06:54
Plt Count 191 10^3/uL (130-400) 08/22/23 06:54
Sodium 132 mmol/L (135-145) L 08/22/23 06:54
Potassium 4.4 mmol/L (3.5-5.1) 08/22/23 06:54
BUN 77 mg/dl (9-20) H 08/22/23 06:54
Creatinine 1.3 mg/dL (0.7-1.3) 08/22/23 06:54
Glucose 100 mg/dl (70-99) H 08/22/23 06:54
Troponins
08/20/23 08/20/23 08/21/23
10:05 18:27 00:14
Troponin I 0.034 0.028 0.032
08/21/23
07:23
Troponin I 0.030
Vital Signs and I&O:
Vital Signs
Temp Pulse Resp BP Pulse Ox
97.6 F 82 18 109/59 96
08/22/23 07:35 08/22/23 10:25 08/22/23 08:07 08/22/23 10:25 08/22/23 08:07
Vital Signs
Temp Pulse Resp BP Pulse Ox
97.6 F 82 18 109/59 96
08/22/23 07:35 08/22/23 10:25 08/22/23 08:07 08/22/23 10:25 08/22/23 08:07
Intake & Output
08/20/23 08/21/23 08/22/23 08/23/23
07:59 07:59 07:59 07:59
Intake Total 960 / 960 960 / 960
Output Total 350 / 350
Balance 610 / 610 960 / 960
Physical Exam
Physical Exam
GEN: No distress, awake, alert, oriented
HEENT: supple, anicteric, mmm, eomi
LUNGS: mild exp wheezes B/L
CV: Irreg, S1/S2, no murmur
ABD: soft, BS+, NT/ND
EXT: No cyanosis, clubbing, edema
NEURO: Gross non-focal
SKIN: Warm, pink, dry. No rash
--- NOTE | 2023-08-22 11:54 | W.PN.HOSP.TC ---
Addendum entered and electronically signed by Dariana Torres MD 08/22/23 19:15:
informed by RN that pt is vomiting blood.
Pt examined at bedside. He remains AOx3, BP improved to 117/56.
CT PE earlier was neg for acute pulmonary embolism, noted significant fluid and gas distention of the stomach, new since previous examination.�
Suspect drop in Hgb due to acute hematemesis.
Start empiric Protonix drip/octreotide drip, empiric ceftriaxone/Flagyl.
NPO.
GI CS.
Blood consent obtained. Ordered Type and screen. Repeat H/H at midnight.
RN updated.
Family in waiting area updated.
Addendum entered and electronically signed by Dariana Torres MD 08/22/23 16:55:
Informed by RN that pt's BP dropped again after completion of IVF. He received 500 cc NSS earlier today.
Pt seen and examined at bedside.
He c/o R sided chest pain, worse with respiration.
Saturation WNL, HR stable. Mental status stable, AOx3.
Will check stat CT PE, also check procal and repeat another troponin now.
Noted pt was just started with low dose Eliquis 2.5 mg BID a few days ago.
DC toprol with low BP.
Upgrade to IMU.
daughter Jacque updated on the phone.
Total Critical Care Time__35___ minutes. I was immediately available to the patient and staff. I personally examined, reviewed labs, diagnostic images/reports, interpretations, treatment plans, discussed patient care with other providers and
family or caregivers (if patient is unable to make decisions), entered orders as appropriate and documented the medical record.
Original Note:
Today's Communication/Plan
-
see A/P
Assessment / Plan
Assessment / Plan
HPI: 82-year-old male with PMH COPD, A flutter, p/w CP, SOB and wet cough that started a few days ago.�
He saw cardiology 2 weeks ago and was diagnosed with new onset atrial flutter.�He had a Holter monitor that was just handed in 5 days ago.�He also recently had a lung CAT scan per his daughter.� However over the past several days they noted more
productive cough.� No measurable fever.� He is having trouble because of the cough.� They deny any leg swelling or significant weight gain.� No other complaints at this
A/P:
# SOB, mild chest pain, wet cough due to mild acute on chronic systolic heart failure
# recent diagnosis of atrial flutter s/p Holter monitor
CXR without cardiopulmonary process.
Of note, patient's weight is not significantly higher than before
Echo noted EF 50-55% with possible basal�inferior hypokinesis, Compared to prior study dated 10/31/2021, LV ejection fraction visually estimated 45% with basal inferior akinesis.� Study was in sinus and noted grade 1�diastolic dysfunction and mild MR.
s/p IV Lasix 40 mg x1, then IV Lasix 20 mg daily, stopped due to hypotension
BB/coreg dosing per card
TSH 1.75
continue eliquis 2.5mg BID
Card on board
# Hypotension likely due to overdiuresis
BP improved after IVF bolus
BB/coreg dosing per card
# Troponin elevation due to non-ischemic myocardial injury
Chest pain resolved
Troponin plateaued at 0.03
# Bradycardia due to coreg
BB/coreg dosing per card
# Pt c/o Abd pain according to daughter
Pt did not complain of any abd pain to me
LFT has normalized
can check lipase
can check Abd US
# Hyponatremia
# Elevated AST likely due to acute CHF, resolved
# COPD
# Active smoking, nicotine dependence
Provide nicotine patch
# Recent diagnosis of bronchiolitis and pt was started with doxycycline
No resp symptom, No need to cont doxycycline
DVT ppx: Lovenox SQ
FC
DW RN
DW Card
updated daughter Jacque on the phone (she is the primary contact)
total time spent 51 min
Anticipated Discharge: 24 - 48 hours
Subjective/Interval History
-
Date of Service: August 22, 2023
Objective Data
-
Labs:
Laboratory Results
08/22/23
06:54
WBC 9.2
Hgb 12.6 L
Hct 36.8 L
Plt Count 191
Sodium 132 L
Potassium 4.4
Chloride 99
Carbon Dioxide 26
BUN 77 H
Creatinine 1.3
Glucose 100 H
Calcium 8.9
Total Bilirubin 0.7
AST 41
ALT 22
Alkaline Phosphatase 67
Vital Signs:
Vital Signs
Temp Pulse Resp BP Pulse Ox
36.4 C 82 18 109/59 96
08/22/23 07:35 08/22/23 10:25 08/22/23 08:07 08/22/23 10:25 08/22/23 08:07
I&O
08/21/23 08/22/23 08/23/23
06:59 06:59 06:59
Intake Total 1919
Output Total 350 / 350
Balance -350 / -350 1919
Review of Systems
-
All other systems: Reviewed and negative
Physical Exam
-
General: Well Developed, Well Nourished, No Apparent Distress, Comfortable and Conversant; Negative Respiratory Distress
HEENT: Normocephalic, Atraumatic, Nose Appears Normal and Ears Appear Normal; Negative Oxygen
Respiratory: Clear to Auscultation and Non Labored Respirations; Negative Accessory Resp Muscle Use
Cardiac: Regular Rhythm and S1/S2
GI: Soft, Nontender, Nondistended and Normal Bowel Sounds
Skin: Warm and Dry
Neuro: Awake, Alert, Oriented and AO x 3
Psych: Calm and Intact Judgement/Insight
Data Reviewed
-
Labs: Labs Reviewed by me
[2023-08-22 13:06] LABS: Lipase 88 U/L (23-300)
[2023-08-22] MEDS: NORCO 5/325 2 TABLET PO (15:12)
[2023-08-22] MEDS: NSS 500 IV (16:49)
--- NOTE | 2023-08-22 16:52 | PTCARENOTE ---
patient continues with right sided mid rib pain- not tender to touch. restless, BP 79/83 heart rate 79 A flutter- pox 97 on room air. resp rate 22/min- occasional harsh productive cough. Dr Torres aware and came to see patient. order and started 500
ml NSS bolus. patient to be transferred to IMU.plan of care on going.
[2023-08-22 17:52] LABS: Troponin I 0.031 ng/ml
--- NOTE | 2023-08-22 18:29 | TRANSFER ---
Pt rec'd into IMU 3344 as transfer from [facility]. Upon arrival pt stood to pivot into bed, was weak on feet and c/o lightheaded. Pt assisted to bed, started coughing/vomiting dark brown/black liquid, Dr. Torres updated and orders rec'd to dc Robel,
make NPO, add NC 02, quantify hemoptysis, draw Hgb, monitor 02 sat closely. Pt pleasant and cooperative, AOx2-3 forgetful at time, attempted to get self oob after being instructed to call for assistance, incont large amount urine in bed. Pts family
called for nursing to come to room during shift report, stated pt coughing and choking on vomit-RNs in room to assist, Dr. Torres called to bedside, futher orders rec'd. Handoff to shift leader RN Marco completed at this time.
[2023-08-22 18:30] LABS: Procalcitonin 0.07 ng/ml (0.0-0.25)
[2023-08-22 18:40] LABS: Hematocrit 28.8 % (39.0-52.0); Hemoglobin 10.1 g/dL (13.0-18.0)
[2023-08-22] MEDS: MORPHINE SULFATE 1 MG IV ×2 (19:30→22:41)
[2023-08-22] MEDS: ZOFRAN 4 MG IV (19:30)
[2023-08-22] MEDS: FLAGYL 500 MG 100 IV (19:44)
[2023-08-22] MEDS: ATROVENT NEBULES 0.5 MG INH (19:44)
[2023-08-22] MEDS: XOPENEX 1.25 MG INHALANT SOLUTION INH (19:44)
[2023-08-22] MEDS: SANDOSTATIN 500.600000000000023 MCG IV (19:45)
[2023-08-22] MEDS: STERILE WATER FOR INJECTION 10 ML IV (19:45)
[2023-08-22] MEDS: ROCEPHIN 1000 MG IV (19:45)
[2023-08-22] MEDS: PROTONIX 100 IV (19:45)
--- NOTE | 2023-08-22 20:03 | PTCARENOTE ---
pt had large amount coffee ground emesis. Dr parkinson at bedside. protonix gtt infusing. type and screen obtained and sent. octreotide gtt infusing. zofran admin. 2mg morphine admin. pt more comfortable at this time. will closely monitor
[2023-08-23] VITALS (46 sets, daily range): BP systolic 69–127; BP diastolic 22–92; BMI 18.4
[2023-08-23 00:42] LABS: Hematocrit 28.1 % (39.0-52.0); Hemoglobin 9.9 g/dL (13.0-18.0)
[2023-08-23] MEDS: MORPHINE SULFATE 1 MG IV ×2 (03:53→20:14)
[2023-08-23] MEDS: ZOFRAN 4 MG IV (03:53)
[2023-08-23] MEDS: FLAGYL 500 MG 100 IV ×2 (03:55→13:00)
[2023-08-23 04:13] LABS: Hematocrit 28.7 % (39.0-52.0); Hemoglobin 9.9 g/dL (13.0-18.0); Mean Corp Hgb Conc. 34.5 g/dL (33.0-37.0); Mean Corpuscular Hgb 33.3 pg (27.0-31.0); Mean Corpuscular Volume 96.6 fL (80.0-94.0); Mean Platelet Volume 11.6 fL (7.4-10.4); Platelet Count 219 10^3/uL (130-400); Red Blood Cell Count 2.97 10^6/uL (4.70-6.10); Red Cell Dist. Width 13.4 % (11.5-14.5)
[2023-08-23 04:38] LABS: Blood Urea Nitrogen 100 mg/dl (9-20); Calcium 8.9 mg/dl (8.4-10.2); Carbon Dioxide 26 mmol/L (22-30); Chloride 97 mmol/L (98-107); Estimated Creatinine Clearance 30 ml/min; Glucose 135 mg/dl (70-99); Magnesium 2.3 mg/dl (1.6-2.3); Potassium 5.4 mmol/L (3.5-5.1); Sodium 135 mmol/L (135-145); eGFR 49.56
--- NOTE | 2023-08-23 07:57 | W.PN.HOSP.TC ---
Today's Communication/Plan
-
see A/P
Assessment / Plan
Assessment / Plan
HPI: 82-year-old male with PMH COPD, A flutter, p/w CP, SOB and wet cough that started a few days ago.�
He saw cardiology 2 weeks ago and was diagnosed with new onset atrial flutter.�He had a Holter monitor that was just handed in 5 days ago.�He also recently had a lung CAT scan per his daughter.� However over the past several days they noted more
productive cough.� No measurable fever.� He is having trouble because of the cough.� They deny any leg swelling or significant weight gain.� No other complaints at this
A/P:
# SOB, mild chest pain, wet cough due to mild acute on chronic systolic heart failure
# recent diagnosis of atrial flutter s/p Holter monitor
# Elevated AST likely due to acute CHF, resolved
proBNP 1210 on admission.
CXR without cardiopulmonary process.
Of note, patient's weight is not significantly higher than before
Echo noted EF 50-55% with possible basal�inferior hypokinesis, Compared to prior study dated 10/31/2021, LV ejection fraction visually estimated 45% with basal inferior akinesis.� Study was in sinus and noted grade 1�diastolic dysfunction and mild MR.
s/p IV Lasix 40 mg x1, then IV Lasix 20 mg daily, stopped due to hypotension
Holding BB due to hypotension
TSH 1.75
Eliquis 2.5mg BID was started for arrhythmia, now stopped due to drop in Hgb with hypotension
Card on board
# Hypotension likely due acute blood loss anemia from GIB/hematemesis
CT noted new gastric fluid (?blood).�
BP improved after IVF
Started PPI drip, Started octreotide drip (in case of variceal bleed)
Started empiric ceftriaxone/flagyl (in case of variceal bleed)- low threshold to stop Abx
Stopped BB due to drop in BP (BP now improved)
Stopped Eliquis
GI consulted
# Troponin elevation due to non-ischemic myocardial injury
Chest pain resolved
Troponin plateaued at 0.03
# Bradycardia on admission due to coreg
Holding BB
# Pt c/o Abd pain according to daughter, ?peptic ulcer disease relating to GIB above
GI consulted for GIB as above
LFT has normalized, lipase WNL
Abd US was ordered, although probably not necessary now
# Hyponatremia, resolved
# COPD
# Active smoking, nicotine dependence
nicotine patch
# Recent diagnosis of bronchiolitis and pt was started with doxycycline
No resp symptom, No need to cont doxycycline
DVT ppx: Off Eliquis, SCD for now
FC
DW RN
DW Card
updated daughter Jacque on the phone (she is the primary contact)
total time spent 51 min
Anticipated Discharge: > 48 hours
Subjective/Interval History
-
Date of Service: August 23, 2023
Objective Data
-
Labs:
Laboratory Results
08/23/23 08/23/23
00:32 04:00
WBC 10.0
Hgb 9.9 L 9.9 L
Hct 28.1 L 28.7 L
Plt Count 219
Sodium 135
Potassium 5.4 H
Chloride 97 L
Carbon Dioxide 26
BUN 100 H
Creatinine 1.4 H
Glucose 135 H
Calcium 8.9
Vital Signs:
Vital Signs
Temp Pulse Resp BP Pulse Ox
36.6 C 97 19 114/92 100
08/23/23 03:20 08/23/23 04:00 08/23/23 04:00 08/23/23 04:00 08/22/23 19:48
I&O
08/22/23 08/23/23 08/24/23
06:59 06:59 06:59
Intake Total 1919
Output Total 500 / 500
Balance 1919
Review of Systems
-
All other systems: Reviewed and negative
Physical Exam
-
General: Well Developed, Well Nourished, No Apparent Distress, Comfortable and Conversant; Negative Respiratory Distress
HEENT: Normocephalic, Atraumatic, Nose Appears Normal, Ears Appear Normal and Oxygen (2L NC)
Respiratory: Clear to Auscultation and Non Labored Respirations; Negative Accessory Resp Muscle Use
Cardiac: Regular Rhythm and S1/S2
GI: Soft, Nontender, Nondistended and Normal Bowel Sounds
Skin: Warm and Dry
Neuro: Awake, Alert, Oriented and AO x 3
Psych: Calm and Intact Judgement/Insight
Data Reviewed
-
Labs: Labs Reviewed by me
[2023-08-23] MEDS: SYMBICORT 160/4.5 MCG INHALER 2 PUFF INH ×2 (08:23→20:42)
[2023-08-23] MEDS: ATROVENT NEBULES 0.5 MG INH ×3 (08:23→20:42)
[2023-08-23] MEDS: XOPENEX 1.25 MG INHALANT SOLUTION INH ×3 (08:23→20:42)
[2023-08-23] MEDS: LIPITOR 80 MG PO (08:33)
[2023-08-23] MEDS: NICODERM TRANSDERMAL 14 MG TRANSDERM (08:34)
[2023-08-23] MEDS: NSS 1000 IV ×2 (08:34→23:43)
--- NOTE | 2023-08-23 08:45 | CON.GI ---
Consultation
-
Date/Time Consultation Requested: 08/22/2023
Date/Time Consultation Performed: 08/23/2023
Requesting Provider: Hospitalist
Performing Provider: Hopsitalist
Reason for Consultation: hematemesis
Medical History
Chief Complaint / HPI
Chief Complaint: Chest pain/ SOB/ cough
History of Present Illness:
82-year-old male with PMHx of COPD, CAD, recently diagnosed A flutter on eliquis, a/w chest pain/ SOB/ cough.�Treated for CHF. Lasix / BB were held currently because of hypotension . Patient had an episode of hematemesis yesterday evening . He was
also complaining of intermittent abdominal pain . No nausea/ vomiting this am . denies any chest pain/ SOB now.
prior hx of PUD. no NSAIDs use
Past Medical History
Past Medical History: CAD, COPD and Other (a flutter )
Social History
Tobacco: Smoker
Alcohol: None
Allergies / Home Medications
Allergy/AdvReac Type Severity Reaction Status Date / Time
venom-honey bee Allergy [id number] Verified 08/20/23 17:25
CLOSES
Medication Instructions Recorded
aspirin 81 mg tablet,delayed 81 mg PO DAILY Blood Clot 05/17/09
release Prevention/Tx
atorvastatin 80 mg tablet (Lipitor) 80 mg PO DAILY High Cholesterol 05/17/09
irbesartan 150 mg tablet 150 mg PO DAILY Blood Pressure 11/24/17
albuterol sulfate 2.5 mg/3 mL 2.5 mg inhalation R TID 08/20/23
(0.083 %) solution for nebulization Lung/Breathing Issues
albuterol sulfate 90 mcg/actuation 1 puff inhalation R Q4HPRN PRN sob 08/20/23
aerosol inhaler
carvedilol 12.5 mg tablet 12.5 mg PO BID Blood Pressure 08/20/23
doxycycline hyclate 100 mg tablet 100 mg PO BID Infection 08/20/23
fluticasone fur. 200 mcg-umeclid 1 inh inhalation R DAILY 08/20/23
62.5 mcg-vilant 25 mcg Lung/Breathing Issues
inhalat.powder (Trelegy Ellipta)
guaifenesin 600 mg tablet, 600 mg PO QPM congestion/cough 08/20/23
extended release 12 hr (Mucinex)
hydrocodone 10 mg-acetaminophen 1 tab PO TIDPRN PRN severe pain 08/20/23
325 mg tablet
tamsulosin 0.4 mg capsule 0.4 mg PO HS Urinary Issue 08/20/23
Review of Systems
-
All other systems: A 12 pt ROS was Negative except as stated above in HPI
Vital Signs
Temp Pulse Resp BP Pulse Ox
97.7 F 71 16 114/92 99
08/23/23 07:16 08/23/23 08:28 08/23/23 08:28 08/23/23 04:00 08/23/23 08:28
Physical Exam
Exam
General: Well Developed and Comfortable
Respiratory: Clear
Cardiac: S1/S2
GI: Soft, Non Tender, Non Distended and Normal Bowel Sounds
Neuro: AO x 3
Results
WBC 10.0 10^3/uL (4.8-10.8) 08/23/23 04:00
Hgb 9.9 g/dL (13.0-18.0) L 08/23/23 04:00
Hct 28.7 % (39.0-52.0) L 08/23/23 04:00
MCV 96.6 fL (80.0-94.0) H 08/23/23 04:00
Plt Count 219 10^3/uL (130-400) 08/23/23 04:00
Absolute Neuts (auto) 7.1 10^3/uL (1.4-6.5) H 08/20/23 10:05
Sodium 135 mmol/L (135-145) 08/23/23 04:00
Potassium 5.4 mmol/L (3.5-5.1) H 08/23/23 04:00
Chloride 97 mmol/L (98-107) L 08/23/23 04:00
Carbon Dioxide 26 mmol/L (22-30) 08/23/23 04:00
BUN 100 mg/dl (9-20) H 08/23/23 04:00
Creatinine 1.4 mg/dL (0.7-1.3) H 08/23/23 04:00
Calcium 8.9 mg/dl (8.4-10.2) 08/23/23 04:00
Total Bilirubin 0.7 mg/dl (0.2-1.3) 08/22/23 06:54
AST 41 U/L (17-59) 08/22/23 06:54
ALT 22 U/L (0-50) 08/22/23 06:54
Alkaline Phosphatase 67 U/L (38-126) 08/22/23 06:54
Lipase 88 U/L (23-300) 08/22/23 06:54
Diagnostic Image Results:
Prior GI Procedures:
EGD: 2008
Impression:� � � � � - Duodenal erosion.
�� � � � � � � � � � - Erythematous duodenopathy.
�� � � � � � � � � � - Multiple duodenal ulcers with clean base.
�� � � � � � � � � � - Gastric mucosal abnormality characterized by erythema.
�� � � � � � � � � � - Gastric mucosal abnormality characterized by erythema
�� � � � � � � � � � and nodularity suspicious for area gastrica.
�� � � � � � � � � � - Hiatus hernia.
�� � � � � � � � � � - Z-line irregular, 39 cm from the incisors.
�� � � � � � � � � � - Erythema and edema duodenal sweep.
EGD 05/2009 follow up
Impression:� � � � � - Normal duodenal bulb and 2nd part of the duodenum.
�� � � � � � � � � � This was biopsied.
�� � � � � � � � � � - Gastric mucosal abnormality characterized by erythema.
�� � � � � � � � � � Biopsied.
�� � � � � � � � � � - Gastric mucosal abnormality characterized by erythema
�� � � � � � � � � � and nodularity. Biopsied.
�� � � � � � � � � � - Hiatus hernia.
�� � � � � � � � � � - Esophageal mucosal changes suspicious for
�� � � � � � � � � � short-segment Kasper's esophagus. This was biopsied.
�� � � � � � � � � � - Tortuous esophagus.
Colonoscopy: 2008
Impression:� � � � � - The examined portion of the ileum was normal.
�� � � � � � � � � � - One 3 mm polyp in the cecum. Resected and retrieved.
�� � � � � � � � � � - One 4 mm polyp in the mid ascending colon. Resected
�� � � � � � � � � � and retrieved.
�� � � � � � � � � � - One 5 mm polyp in the proximal ascending colon.
�� � � � � � � � � � Resected and retrieved.
�� � � � � � � � � � - One 4 mm polyp in the mid transverse colon. Resected
�� � � � � � � � � � and retrieved.
�� � � � � � � � � � - Diverticulosis in the sigmoid colon.
�� � � � � � � � � � - Diverticulosis in the descending colon, in the
�� � � � � � � � � � transverse colon and in the ascending colon.
�� � � � � � � � � � - Non bleeding, small, external hemorrhoids.
Assessment / Plan
-
82 y/o male with hx of COPD,CAD, aflutter on eliquis admitted initially with CP/SOB/ cough had an episode of hematemesis last night . Prior hx of PUD. patient has been complaining of intermittent abdominal pain .
- hematemesis - likely etiology PUD vs gastritis vs esophagistis etc
- abdominal pain
- elevated AST on admission - normalized now
- recent Aflutter on eliquis
- past hx of PUD
- hx of colon polyps
plan
NPO
continue monitor H/H
continue protonix drip
Eliquis on hold
EGD today
-
-
Thank you for consultation and allowing me to participate in the patient's care. Please call the mail distribution clerk GI physician during the after hours with any questions or concerns.
--- NOTE | 2023-08-23 09:25 | W.PN.CARDCBS ---
Today's Communication / Plan
-
GI eval for GIB
OAC on hold 2/2 GIB; resume when able
Resume BB when stable; on hold for now
Impression / Plan
-
Primary Preconstruction Manager: Dr. Hutson
Assessment:
Acute GIB, Hbg 9.9; with hematemesis
Presentation with cough, SOB
COPD exacerbation
recent diagnosis atrial flutter, rate controlled of unclear duration, currently markedly [place]
CAD with prior remote 'silent' MIs, PTCA to mid RCA, INTERACTIVE DIGITAL MEDIA SPECIALIST of distal RCA and LCx PCI in 2004
ischemic cardiomyopathy with EF 45%
hypertension
dyslipidemia
abdominal aortic aneurysm
COPD/emphysema
ongoing smoking
Chronic bronchitis
renal insufficiency
hyponatremia, mild
ECHO 10/31/2021: EF 45%, basal to mid inferolateral hypokinesis, basal inferior akinesis, stage I diastolic dysfunction, mild MR, mildly dilated left atrium
Lexiscan nuclear stress test 10/31/2021: Fixed defect in basal inferolateral, basal inferior, mid inferolateral, mid inferior segments consistent with infarction, EF 31%, no active significant coronary disease
ECHO 08/21/23: EF 50 to 55%, possible basal inferior hypokinesis, moderate LVH, dilated RV, biatrial dilatation, MAC, mild to moderate MR, aortic sclerosis, mild TR, PAP 30 to 35 mmHg
Plan:
-Patient presents with cough and shortness of breath. covid and flu negative. [place] to be COPD exacerbation. Continue treatment per primary service.
-s/p dose of 40mg IV lasix 08/19 and IV lasix 20mg 08/20, and weight down significantly if accurate, however suspect patient did not have acute CHF and now is dehydrated as was dizzy with standing and + ortho VS 08/21. Cr up to 1.3. was given 250cc
bolus per primary service this morning. will give another 250cc now. no history of CHF and was not on diuretic prior to admission
-remains in aflutter and HRs climbing especially with ambulation but rate controlled; resume toprol XL 25 mg daily when able, on hold currently for hypotension
-eliquis 2.5mg BID started this admission. OP asa stopped; on hold due to GIB (resume when able); awaiting GI eval and recommendations
-TSH WNL
-replete mag/electrolytes
-OP irbesartan stopped
-he is scheduled for OP abd US to reassess AAA
-d/w nursing
Progress Note - Preconstruction Manager
Subjective
Date of Service: August 23, 2023
Patient seen and examined; overnight, hematemesis, requiring transfer to IMU. IVF, PPI, octreotide provided. Undergoing GI eval. Eliquis on hold. Currently, reports feeling well. Denies cp, sob, palpitations, lh, dizziness, or weakness. Notes off
and on abdominal pain.
Objective
Labs:
08/23/23 04:00
08/23/23 04:00
Labs
Hgb 9.9 g/dL (13.0-18.0) L 08/23/23 04:00
Hct 28.7 % (39.0-52.0) L 08/23/23 04:00
Plt Count 219 10^3/uL (130-400) 08/23/23 04:00
Sodium 135 mmol/L (135-145) 08/23/23 04:00
Potassium 5.4 mmol/L (3.5-5.1) H 08/23/23 04:00
BUN 100 mg/dl (9-20) H 08/23/23 04:00
Creatinine 1.4 mg/dL (0.7-1.3) H 08/23/23 04:00
Glucose 135 mg/dl (70-99) H 08/23/23 04:00
Troponins
08/20/23 08/20/23 08/21/23
10:05 18:27 00:14
Troponin I 0.034 0.028 0.032
08/21/23 08/22/23
07:23 17:14
Troponin I 0.030 0.031
Vital Signs and I&O:
Vital Signs
Temp Pulse Resp BP Pulse Ox
97.7 F 71 16 114/92 99
08/23/23 07:16 08/23/23 08:28 08/23/23 08:28 08/23/23 04:00 08/23/23 08:28
Vital Signs
Temp Pulse Resp BP Pulse Ox
97.7 F 71 16 114/92 99
08/23/23 07:16 08/23/23 08:28 08/23/23 08:28 08/23/23 04:00 08/23/23 08:28
Intake & Output
08/21/23 08/22/23 08/23/23 08/24/23
06:59 06:59 06:59 06:59
Intake Total 1919
Output Total 350 / 350 500 / 500
Balance -350 / -350 1919
Physical Exam
Physical Exam
GEN: No distress, awake, alert, oriented
HEENT: supple, anicteric, mmm, eomi
LUNGS: mild exp wheezes B/L
CV: Irreg, S1/S2, no murmur
ABD: soft, BS+, NT/ND
EXT: No cyanosis, clubbing, edema
NEURO: Gross non-focal
SKIN: Warm, pink, dry. No rash
[2023-08-23] MEDS: PROTONIX 100 IV ×2 (11:24→20:14)
--- NOTE | 2023-08-23 19:22 | PTCARENOTE ---
assumed care of pt after morning rounds. Pt is confused but reorients and redirected. Pt to GI lab, daughter and son aware of plan of care and received update from GI dr. Pt with no Hemoptysis this shift. NO Gi bleeding noted or BMs this shift. Pt's
heart rate [id number] with minimal activity but returns to NSR without intervention. Pt with 02 at 2l, lungs diminished bilaterally. Clear liquid diet initiated after GI procedure and pt is tolerating without discomfort. Condom catheter intact
for clear yellow urine. Pt denies abdominal discomfort this afternoon.
--- NOTE | 2023-08-23 20:00 | PTCARENOTE ---
Resumed care of pt sitting up in bed AAOx3. Pt confused and forgetful at times, easily reorients. pt reporting 8/10 chronic back pain, PRN pain medication administered as ordered. HR in the 60's in NSR with first degree AV, BBB, frequent PVC's on
the monitor. HR irreg. POX 100% on 2 LO2 NC. Lungs course t/o. Occ cough. BLACK. + bowel. Tolerating clear liquid diet without complaints. #25CC in place draining clear yellow urine. Palpable peripheral pulses present. Knee high seq in place. Left
forearm INT infusing Protonix gtt @10ml/hr, NSS@60ml/hr as ordered. Pt refusing oral hygiene at this time. Pt repositioned self per comfort. Bed alarm on bed for pt safety. Will continue to monitor.
[2023-08-24] VITALS (45 sets, daily range): BP systolic 91–143; BP diastolic 43–121; BMI 19.0
[2023-08-24 04:22] LABS: Hematocrit 24.2 % (39.0-52.0); Hemoglobin 7.9 g/dL (13.0-18.0); Mean Corp Hgb Conc. 32.6 g/dL (33.0-37.0); Mean Corpuscular Hgb 32.9 pg (27.0-31.0); Mean Corpuscular Volume 100.8 fL (80.0-94.0); Mean Platelet Volume 11.5 fL (7.4-10.4); Platelet Count 186 10^3/uL (130-400); Red Cell Dist. Width 13.5 % (11.5-14.5); White Blood Cell Count 10.8 10^3/uL (4.8-10.8)
--- NOTE | 2023-08-24 04:55 | PTCARENOTE ---
Pt slept well overnight. No issues to report. No BM overnight. IVF and Protonix gtt infusing as ordered. Vital signs stable. Will continue to monitor.
[2023-08-24 04:59] LABS: Blood Urea Nitrogen 62 mg/dl (9-20); Calcium 8.2 mg/dl (8.4-10.2); Carbon Dioxide 25 mmol/L (22-30); Chloride 108 mmol/L (98-107); Estimated Creatinine Clearance 40 ml/min; Glucose 97 mg/dl (70-99); Magnesium 2.2 mg/dl (1.6-2.3); Potassium 4.7 mmol/L (3.5-5.1); Sodium 136 mmol/L (135-145); eGFR > 60.00
[2023-08-24] MEDS: PROTONIX 100 IV ×2 (06:29→16:22)
[2023-08-24] MEDS: XOPENEX 1.25 MG INHALANT SOLUTION INH ×3 (07:42→19:44)
[2023-08-24] MEDS: ATROVENT NEBULES 0.5 MG INH (07:42)
[2023-08-24] MEDS: SYMBICORT 160/4.5 MCG INHALER 2 PUFF INH ×2 (07:43→19:42)
[2023-08-24] MEDS: NICODERM TRANSDERMAL 14 MG TRANSDERM (08:49)
[2023-08-24] MEDS: LIPITOR 80 MG PO (08:49)
--- NOTE | 2023-08-24 09:07 | W.PN.HOSP.TC ---
Today's Communication/Plan
-
see A/P
Assessment / Plan
Assessment / Plan
HPI: 82-year-old male with PMH COPD, A flutter, p/w CP, SOB and wet cough that started a few days ago.�
He saw cardiology 2 weeks ago and was diagnosed with new onset atrial flutter.�He had a Holter monitor that was just handed in 5 days ago.�He also recently had a lung CAT scan per his daughter.� However over the past several days they noted more
productive cough.� No measurable fever.� He is having trouble because of the cough.� They deny any leg swelling or significant weight gain.� No other complaints at this
A/P:
# SOB, mild chest pain, wet cough due to mild acute on chronic systolic heart failure
# recent diagnosis of atrial flutter s/p Holter monitor
# Elevated AST likely due to acute CHF, resolved
proBNP 1210 on admission.
CXR without cardiopulmonary process.
Of note, patient's weight is not significantly higher than before
Echo noted EF 50-55% with possible basal�inferior hypokinesis, Compared to prior study dated 10/31/2021, LV ejection fraction visually estimated 45% with basal inferior akinesis.� Study was in sinus and noted grade 1�diastolic dysfunction and mild MR.
s/p IV Lasix 40 mg x1, then IV Lasix 20 mg daily, stopped due to hypotension
Holding BB due to hypotension
TSH 1.75
Eliquis 2.5mg BID was started for arrhythmia, now stopped due to drop in Hgb with hypotension
Card on board
# Hypotension due acute blood loss anemia from acute GIB/hematemesis
EGD 08/22 noted Large Blood clot in the second portion of the duodenum. Unable to remove the clot. No evidence of any active bleeding noted around the clot. No specimens collected.
Cont PPI drip
Off octreotide drip, off empiric ceftriaxone/flagyl
Stopped BB due to drop in BP (BP now improved). Stopped Eliquis.
Transfuse 2 units PRBC
GI on board , plan for repeat endoscopy Thursday 08/24
# Troponin elevation due to non-ischemic myocardial injury
Chest pain resolved
Troponin plateaued at 0.03
# Bradycardia on admission due to coreg
Holding BB
# Hyponatremia, resolved
# COPD
# Active smoking, nicotine dependence
nicotine patch
# Recent diagnosis of bronchiolitis and pt was started with doxycycline
No resp symptom, No need to cont doxycycline
DVT ppx: Off Eliquis, SCD for now
FC
DW RN
DW daughter Jacque (she is the primary contact) in person at bedside
total time spent 51 min
Anticipated Discharge: > 48 hours
Subjective/Interval History
-
Date of Service: August 24, 2023
Objective Data
-
Labs:
Laboratory Results
08/24/23
03:56
WBC 10.8
Hgb 7.9 L D
Hct 24.2 L
Plt Count 186
Sodium 136
Potassium 4.7
Chloride 108 H
Carbon Dioxide 25
BUN 62 H
Creatinine 1.1
Glucose 97
Calcium 8.2 L
Vital Signs:
Vital Signs
Temp Pulse Resp BP Pulse Ox
36.8 C 73 17 108/61 99
08/24/23 07:48 08/24/23 07:43 08/24/23 07:43 08/24/23 06:30 08/24/23 07:43
I&O
08/23/23 08/24/23 08/25/23
06:59 06:59 06:59
Intake Total 2410 / 2410 2540 / 2540
Output Total 500 / 500 2550 / 2550
Balance 191 / 1909 -10 / -10
Review of Systems
-
All other systems: Reviewed and negative
Physical Exam
-
General: Well Developed, Well Nourished, No Apparent Distress, Comfortable and Conversant; Negative Respiratory Distress
HEENT: Normocephalic, Atraumatic, Nose Appears Normal, Ears Appear Normal and Oxygen (2L NC)
Respiratory: Clear to Auscultation and Non Labored Respirations; Negative Accessory Resp Muscle Use
Cardiac: Regular Rhythm and S1/S2
GI: Soft, Nontender, Nondistended and Normal Bowel Sounds
Skin: Warm and Dry
Neuro: Awake, Alert, Oriented and AO x 3
Psych: Calm and Intact Judgement/Insight
Data Reviewed
-
Medical Tests (Nuc Med, Echo etc): Report Reviewed by me (EGD)
Labs: Labs Reviewed by me
--- NOTE | 2023-08-24 09:49 | W.PN.CARDCBS ---
Today's Communication / Plan
-
Eliquis when OK from GI
Supportive care for GIB
Euvolemic on exam
Resume BB when able
Impression / Plan
-
Primary Bobbin Collector: Dr. Hutson
Assessment:
Acute GIB, Hbg 9.9 -> 7.9; with hematemesis
Presentation with cough, SOB
COPD exacerbation
recent diagnosis atrial flutter, rate controlled of unclear duration, currently markedly [place]
CAD with prior remote 'silent' MIs, PTCA to mid RCA, VACUUM TANK TENDER of distal RCA and LCx PCI in 2004
ischemic cardiomyopathy with EF 45%
hypertension
dyslipidemia
abdominal aortic aneurysm
COPD/emphysema
ongoing smoking
Chronic bronchitis
renal insufficiency
hyponatremia, mild
ECHO 10/31/2021: EF 45%, basal to mid inferolateral hypokinesis, basal inferior akinesis, stage I diastolic dysfunction, mild MR, mildly dilated left atrium
Lexiscan nuclear stress test 10/31/2021: Fixed defect in basal inferolateral, basal inferior, mid inferolateral, mid inferior segments consistent with infarction, EF 31%, no active significant coronary disease
ECHO 08/21/23: EF 50 to 55%, possible basal inferior hypokinesis, moderate LVH, dilated RV, biatrial dilatation, MAC, mild to moderate MR, aortic sclerosis, mild TR, PAP 30 to 35 mmHg
Plan:
-Patient presents with cough and shortness of breath. covid and flu negative. [place] to be COPD exacerbation. Continue treatment per primary service.
-s/p dose of 40mg IV lasix 08/19 and IV lasix 20mg 08/20, and weight down significantly if accurate, however suspect patient did not have acute CHF and now is dehydrated as was dizzy with standing and + ortho VS 08/21. Cr up to 1.3. was given 250cc
bolus per primary service this morning. Cr improved; no history of CHF and was not on diuretic prior to admission
-remains in aflutter and HRs climbing especially with ambulation but rate controlled; resume toprol XL 25 mg daily when able, on hold currently for hypotension/GIB
-eliquis 2.5mg BID started this admission. OP asa stopped; on hold due to GIB (resume when able); awaiting GI eval and recommendations
-TSH WNL
-replete mag/electrolytes
-OP irbesartan stopped
-he is scheduled for OP abd US to reassess AAA
-d/w nursing
Progress Note - Bobbin Collector
Subjective
Date of Service: August 24, 2023
Patient seen and examined. No acute events overnight. Patient resting comfortably. Denies cp, sob, palpitations, lh, dizziness, abdominal pain or weakness. Tentative endoscopy 08/24 per GI. Tele rate controlled AF/AFL.
Objective
Labs:
08/24/23 03:56
08/24/23 03:56
Labs
Hgb 7.9 g/dL (13.0-18.0) L D 08/24/23 03:56
Hct 24.2 % (39.0-52.0) L 08/24/23 03:56
Plt Count 186 10^3/uL (130-400) 08/24/23 03:56
Sodium 136 mmol/L (135-145) 08/24/23 03:56
Potassium 4.7 mmol/L (3.5-5.1) 08/24/23 03:56
BUN 62 mg/dl (9-20) H 08/24/23 03:56
Creatinine 1.1 mg/dL (0.7-1.3) 08/24/23 03:56
Glucose 97 mg/dl (70-99) 08/24/23 03:56
Troponins
08/22/23
17:14
Troponin I 0.031
Vital Signs and I&O:
Vital Signs
Temp Pulse Resp BP Pulse Ox
97.8 F 83 14 121/58 96
08/24/23 09:31 08/24/23 09:31 08/24/23 09:31 08/24/23 09:31 08/24/23 09:20
Vital Signs
Temp Pulse Resp BP Pulse Ox
97.8 F 83 14 121/58 96
08/24/23 09:31 08/24/23 09:31 08/24/23 09:31 08/24/23 09:31 08/24/23 09:20
Intake & Output
08/22/23 08/23/23 08/24/23 08/25/23
06:59 06:59 06:59 06:59
Intake Total 1919 / 1919 2410 / 2410 2540 / 2540 0 / 0
Output Total 500 / 500 2550 / 2550
Balance 1919 -10 / -10 0 / 0
Physical Exam
Physical Exam
GEN: No distress, awake, alert, oriented
HEENT: supple, anicteric, mmm, eomi
LUNGS: mild exp wheezes B/L
CV: Irreg, S1/S2, no murmur
ABD: soft, BS+, NT/ND
EXT: No cyanosis, clubbing, edema
NEURO: Gross non-focal
SKIN: Warm, pink, dry. No rash
--- NOTE | 2023-08-24 10:20 | CM ---
CM reviewed medical records. Patient remains acutely ill at this time. CM will continue to follow for needs.
PLAN: Pending clinical outcome and PT evaluation.
--- NOTE | 2023-08-24 11:48 | W.PN.GI.CBS2 ---
Today's Communication / Plan
-
Monitor H&H
Protonix drip
Repeat EGD in a.m. n.p.o. after midnight
Assessment / Plan
-
82 y/o male with hx of COPD,CAD, aflutter on eliquis admitted initially with CP/SOB/ cough had an episode of hematemesis last night . Prior hx of PUD. patient has been complaining of intermittent abdominal pain .
- hematemesis - likely etiology PUD vs gastritis vs esophagistis etc. EGD 08/23/2023-old blood in the stomach/duodenum. Large clot noted in the second part of the duodenum. Unable to displace. No active bleeding was noted
- abdominal pain -resolved
- elevated AST on admission - normalized now
- recent Aflutter on eliquis
- past hx of PUD
- hx of colon polyps
plan
Continue clear liquid diet today
Repeat EGD tomorrow a.m. N.p.o. after midnight
continue monitor H&H. Transfuse to keep hemoglobin above 7
Continue Protonix drip
Eliquis on hold
Total Time Spent with Patient (in minutes): 35
Subjective
Subjective
Date of Service: August 24, 2023
No further episodes of hematemesis or coffee-ground emesis or dark stool. Tolerating clear liquid
Objective
Data Reviewed
Laboratory Data:
Laboratory Results
08/24/23 03:56
08/24/23 03:56
Laboratory Results
Magnesium 2.2 mg/dl (1.6-2.3) 08/24/23 03:56
Total Bilirubin 0.7 mg/dl (0.2-1.3) 08/22/23 06:54
AST 41 U/L (17-59) 08/22/23 06:54
ALT 22 U/L (0-50) 08/22/23 06:54
Alkaline Phosphatase 67 U/L (38-126) 08/22/23 06:54
Lipase 88 U/L (23-300) 08/22/23 06:54
Vital Signs and I&O:
Vital Signs
Temp Pulse Resp BP Pulse Ox
99.4 F 83 14 121/58 94
08/24/23 11:37 08/24/23 09:31 08/24/23 09:31 08/24/23 09:31 08/24/23 10:01
I&O
08/23/23 08/24/23 08/25/23
06:59 06:59 06:59
Intake Total 2410 / 2410 2540 / 2540 0 / 0
Output Total 500 / 500 2550 / 2550
Balance 1909 / 1909 -10 / -10 0 / 0
Physical Exam
Physical Exam
GI: Soft, Non Distended and Non Tender
[2023-08-24] MEDS: ATROVENT NEBULES INH ×2 (14:16→19:44)
[2023-08-24] MEDS: MORPHINE SULFATE 1 MG IV (16:26)
--- NOTE | 2023-08-24 16:38 | PTCARENOTE ---
Pt received 2 units PRBCs today w/o issue. No episodes of vomiting. Does have productive cough w/ weiss/brown/blood tinged sputum. Feels like he is having bowel movements but is just passing a lot of flatus w/ black smears in brief.
[2023-08-24] MEDS: NSS 1000 IV (19:16)
[2023-08-25] VITALS (20 sets, daily range): BP systolic 97–139; BP diastolic 48–82; BMI 19.2
[2023-08-25] MEDS: PROTONIX 100 IV ×3 (02:18→20:28)
[2023-08-25 04:58] LABS: Hemoglobin 9.2 g/dL (13.0-18.0); Mean Corp Hgb Conc. 34.1 g/dL (33.0-37.0); Mean Corpuscular Hgb 32.5 pg (27.0-31.0); Mean Corpuscular Volume 95.4 fL (80.0-94.0); Mean Platelet Volume 11.2 fL (7.4-10.4); Platelet Count 176 10^3/uL (130-400); Red Blood Cell Count 2.83 10^6/uL (4.70-6.10); Red Cell Dist. Width 15.3 % (11.5-14.5); White Blood Cell Count 9.8 10^3/uL (4.8-10.8)
[2023-08-25 05:31] LABS: Blood Urea Nitrogen 32 mg/dl (9-20); Calcium 8.6 mg/dl (8.4-10.2); Carbon Dioxide 30 mmol/L (22-30); Chloride 105 mmol/L (98-107); Estimated Creatinine Clearance 49 ml/min; Glucose 90 mg/dl (70-99); Magnesium 1.8 mg/dl (1.6-2.3); Potassium 4.1 mmol/L (3.5-5.1); Sodium 137 mmol/L (135-145); eGFR > 60.00
[2023-08-25] MEDS: SYMBICORT 160/4.5 MCG INHALER 2 PUFF INH ×2 (07:54→20:01)
[2023-08-25] MEDS: ATROVENT NEBULES 0.5 MG INH ×2 (07:54→13:48)
[2023-08-25] MEDS: XOPENEX 1.25 MG INHALANT SOLUTION INH ×3 (07:54→20:03)
[2023-08-25] MEDS: NICODERM TRANSDERMAL 14 MG TRANSDERM (08:30)
[2023-08-25] MEDS: LIPITOR 80 MG PO (08:30)
[2023-08-25] MEDS: NSS 1000 IV (09:52)
--- NOTE | 2023-08-25 12:14 | PTCARENOTE ---
Assumed care of patient at beginning of this shift from previous RN; cannot verify accuracy of vital signs prior to 0700. Patient NPO except meds for EGD; currently in GI dept. Occasional productive cough which patient states is yellow. +flatus; no
bm. Condom cath in place d/t incontinence; voided 400ml prior to transfer to GI lab. See worklist for full assessment and vital signs; see MAR for med administration.
--- NOTE | 2023-08-25 13:02 | W.PN.CARDCBS ---
Addendum entered and electronically signed by Michael Saleh MD 08/25/23 13:44:
I saw and examined the patient.
The LIVE AMMUNITION INSPECTOR or PA's note was reviewed and I agree with the note.
Comment: General: Well developed, well nourished in NAD.
Neck: Supple, no JVD, HJR, carotids +2 B/L, no bruits bilaterally.
Heart: Non displaced PMI, RRR, no murmurs, No S3, S4, no rubs.
Lungs: Clear to auscultation bilaterally, no wheeze, rhonchi, rubs bilaterally,
normal expiratory phase.
Extremities: No clubbing, cyanosis or edema bilaterally.
Neuro: Grossly nonfocal, awake, alert and oriented x3.
Stable cardiology status. Continue to hold beta-nicolasa likely indefinitely given significant pauses noted on admission. Heart rate control reasonable at present. Hold Eliquis for 72 hours ( 08/27) per GI. Can assess for possible cardioversion if
tolerates anticoagulation for 4 weeks as an outpatient.
Original Note:
Today's Communication / Plan
-
Continue to hold Eliquis another 72 hours per GI
Consider resuming low dose BB as BP allows
Impression / Plan
-
Primary Commuter Train Operator: Dr. Hutson
Assessment:
Acute GIB, Hbg 9.9 -> 7.9; with hematemesis
Presentation with cough, SOB
COPD exacerbation
Atrial flutter, rate controlled of unclear duration, currently markedly [place]
CAD with prior remote 'silent' MIs, PTCA to mid RCA, YEAST WASHER of distal RCA and LCx PCI in 2004
Ischemic cardiomyopathy with EF 45%
Hypertension
Dyslipidemia
Abdominal aortic aneurysm
Smoker
Chronic bronchitis
Renal insufficiency
Hyponatremia, mild
Lexiscan nuclear stress test 10/31/2021: Fixed defect in basal inferolateral, basal inferior, mid inferolateral, mid inferior segments consistent with infarction, EF 31%, no active significant coronary disease
ECHO 10/31/2021: EF 45%, basal to mid inferolateral hypokinesis, basal inferior akinesis, stage I diastolic dysfunction, mild MR, mildly dilated left atrium
ECHO 08/21/2023: EF 50 to 55%, possible basal inferior hypokinesis, moderate LVH, dilated RV, biatrial dilatation, MAC, mild to moderate MR, aortic sclerosis, mild TR, PAP 30 to 35 mmHg
Plan:
-Presented with cough and SOB. Flu and covid negative. Being treated for COPD exacerbation.
-Remains in atrial flutter. New to Eliquis 2.5mg BID this admission, however has been on hold with GIB. Endoscopy 08/24 noted large duodenal ulcer with adherent clot which was removed.
-GI recommending Eliquis to remain on hold another 72 hours. Hgb stable at 9.2
-HR stable currently. BB has been on hold this admission due to hypotension. Consider resuming low dose Toprol 12.5mg daily.
-OP irbesartan stopped.
-He is scheduled for OP abd US to reassess AAA
-Continue lipitor 80mg daily.
HPI: Patient is an 82-year-old male with history of CAD including YEAST WASHER of RCA and LCx PCI in 2004, ischemic cardiomyopathy with EF 45%, hypertension, abdominal aortic aneurysm, COPD/emphysema with ongoing smoking, renal insufficiency who was recently
diagnosed with atrial flutter, rate controlled of unclear duration.� He underwent 7-day battery container tester aluminum which was completed, however results not yet available.� He was ordered echocardiogram, scheduled for 09/29/2023.� Head CT was also discussed due
to symptoms of vague fuzziness/hollow feeling in his head prior to Eliquis being started.� He was also recently seen by pulmonary and treated with a course of doxycycline for bronchitis.� He had recent CT of the chest with evidence of emphysema.� He
presents to emergency room due to complaints of cough and shortness of breath.� Per daughter he has felt washed out and tired over the last several days. Also with congestion and 'fullness' in his chest. No lower extremity edema or weight gain.� He
denies shortness of breath currently.� He states he chronically has some wheezing.� He appears somewhat forgetful, and was not personally able to tell me why he was in the emergency room.� Cardiology consulted as he was noted to be markedly
bradycardic in aflutter on telemetry.� On Coreg 12.5 mg twice daily as an outpatient.� Currently heart rate in the 60s on telemetry in ER.
Progress Note - Commuter Train Operator
Subjective
Date of Service: August 25, 2023
Objective
Labs:
08/25/23 04:21
08/25/23 04:21
Labs
Hgb 9.2 g/dL (13.0-18.0) L 08/25/23 04:21
Hct 27.0 % (39.0-52.0) L 08/25/23 04:21
Plt Count 176 10^3/uL (130-400) 08/25/23 04:21
Sodium 137 mmol/L (135-145) 08/25/23 04:21
Potassium 4.1 mmol/L (3.5-5.1) 08/25/23 04:21
BUN 32 mg/dl (9-20) H 08/25/23 04:21
Creatinine 0.9 mg/dL (0.7-1.3) 08/25/23 04:21
Glucose 90 mg/dl (70-99) 08/25/23 04:21
Troponins
08/22/23
17:14
Troponin I 0.031
Vital Signs and I&O:
Vital Signs
Temp Pulse Resp BP Pulse Ox
98.5 F 72 21 126/69 100
08/25/23 13:00 08/25/23 12:59 08/25/23 12:59 08/25/23 12:59 08/25/23 13:00
Vital Signs
Temp Pulse Resp BP Pulse Ox
98.5 F 72 21 126/69 100
08/25/23 13:00 08/25/23 12:59 08/25/23 12:59 08/25/23 12:59 08/25/23 13:00
Intake & Output
08/23/23 08/24/23 08/25/23 08/26/23
06:59 06:59 06:59 06:59
Intake Total 2410 / 2410 2540 / 2540 500 / 500
Output Total 500 / 500 2550 / 2550 1950 / 1950 400 / 400
Balance 1909 / 1909 -10 / -10 -1450 / -1450 -400 / -400
--- NOTE | 2023-08-25 15:51 | W.PN.HOSP.TC ---
Today's Communication/Plan
-
PPI drip x 24 hours
PT/OT
Assessment / Plan
Assessment / Plan
HPI: 82-year-old male with PMH COPD, A flutter, p/w CP, SOB and wet cough that started a few days ago.�
He saw cardiology 2 weeks ago and was diagnosed with new onset atrial flutter.�He had a Holter monitor that was just handed in 5 days ago.�He also recently had a lung CAT scan per his daughter.� However over the past several days they noted more
productive cough.� No measurable fever.� He is having trouble because of the cough.� They deny any leg swelling or significant weight gain.� No other complaints at this
Assessment:
SOB, mild chest pain, wet cough due to mild acute on chronic systolic heart failure
recent diagnosis of atrial flutter s/p Holter monitor
Elevated AST likely due to acute CHF, resolved
- s/p IV Lasix; now stopped
- BB indefinitely held due to marginal BP/HR
- hold Eliquis due to GI bleed
- eventual consideration of cardioversion outpatient
Hypotension due acute blood loss anemia from acute GIB/hematemesis
- s/p EGD 08/22: Large Blood clot in the second portion of the duodenum. Unable to remove the clot. No evidence of any active bleeding noted around the clot. No specimens collected.
- s/p EGD 08/24: Large duodenal ulcer with adherent clot. Clot was removed. oozing was noted around the edges. Injected. Treated with bipolar cautery. Non-bleeding duodenal ulcers with no stigmata of bleeding.
- continue PPI Drip
- previously was on octreotide and empiric Abx
- s/p 2 unit PRBCs
Troponin elevation due to non-ischemic myocardial injury
- Chest pain resolved
- Troponin plateaued at 0.03
Bradycardia on admission due to Coreg
- BB indefinitely held due to marginal BP/HR
Hyponatremia, resolved
COPD
Active smoking, nicotine dependence
- nicotine patch
Recent diagnosis of bronchiolitis and pt was started with doxycycline
- No resp symptom, No need to cont doxycycline
DVT ppx: SCDs given GI bleed
Code: Full
Anticipated Discharge: > 48 hours
Subjective/Interval History
-
Date of Service: August 25, 2023
s/p EGD with duodenal ulcer with clot treated
Objective Data
-
Labs:
Laboratory Results
08/25/23
04:21
WBC 9.8
Hgb 9.2 L
Hct 27.0 L
Plt Count 176
Sodium 137
Potassium 4.1
Chloride 105
Carbon Dioxide 30
BUN 32 H
Creatinine 0.9
Glucose 90
Calcium 8.6
Vital Signs:
Vital Signs
Temp Pulse Resp BP Pulse Ox
98.5 F 81 17 122/60 95
08/25/23 13:00 08/25/23 14:00 08/25/23 14:00 08/25/23 14:00 08/25/23 14:00
I&O
08/24/23 08/25/23 08/26/23
06:59 06:59 06:59
Intake Total 2540 / 2540 500 / 500
Output Total 2550 / 2550 1950 / 1950 400 / 400
Balance -10 / -10 -1450 / -1450 -400 / -400
Physical Exam
-
General: No Apparent Distress
HEENT: Normocephalic and Atraumatic
Respiratory: Negative Wheezes
Cardiac: Regular Rhythm and S1/S2
GI: Soft
Genito-urinary: No Costovertebral Tender
Neuro: AO x 3
Hematologic / Lymphatic: No Lymphadenopathy
Psych: Calm
Data Reviewed
-
Total Time Spent with Patient (in minutes): 42
Labs: Labs Reviewed by me
[2023-08-25] MEDS: ATROVENT NEBULES INH (20:03)
[2023-08-25] MEDS: MORPHINE SULFATE 1 MG IV (20:35)
[2023-08-25] MEDS: FLUSH (NSS) 2 FLUSH IV (20:37)
[2023-08-26] VITALS (14 sets, daily range): BP systolic 106–139; BP diastolic 52–89; PULSE 71–138; O2SAT 96; BMI 19.2
[2023-08-26] MEDS: PROTONIX 100 IV (06:20)
[2023-08-26 06:23] LABS: Hematocrit 25.2 % (39.0-52.0); Hemoglobin 8.5 g/dL (13.0-18.0); Mean Corp Hgb Conc. 33.7 g/dL (33.0-37.0); Mean Corpuscular Hgb 32.3 pg (27.0-31.0); Mean Corpuscular Volume 95.8 fL (80.0-94.0); Mean Platelet Volume 11.2 fL (7.4-10.4); Platelet Count 183 10^3/uL (130-400); Red Blood Cell Count 2.63 10^6/uL (4.70-6.10); Red Cell Dist. Width 14.9 % (11.5-14.5); White Blood Cell Count 9.5 10^3/uL (4.8-10.8)
[2023-08-26 06:40] LABS: Blood Urea Nitrogen 22 mg/dl (9-20); Calcium 8.2 mg/dl (8.4-10.2); Carbon Dioxide 28 mmol/L (22-30); Chloride 106 mmol/L (98-107); Estimated Creatinine Clearance 50 ml/min; Glucose 86 mg/dl (70-99); Potassium 3.7 mmol/L (3.5-5.1); Sodium 134 mmol/L (135-145); eGFR > 60.00
[2023-08-26] MEDS: SYMBICORT 160/4.5 MCG INHALER 2 PUFF INH ×2 (07:30→18:07)
[2023-08-26] MEDS: ATROVENT NEBULES INH ×2 (07:30→07:32)
[2023-08-26] MEDS: XOPENEX 1.25 MG INHALANT SOLUTION INH ×2 (07:30→07:32)
[2023-08-26] MEDS: NICODERM TRANSDERMAL 14 MG TRANSDERM (08:33)
[2023-08-26] MEDS: LIPITOR 80 MG PO (08:33)
--- NOTE | 2023-08-26 09:35 | W.PN.HOSP.TC ---
Today's Communication/Plan
-
PT/OT
ADAT as per GI
follow Hb
Assessment / Plan
Assessment / Plan
HPI: 82-year-old male with PMH COPD, A flutter, p/w CP, SOB and wet cough that started a few days ago.�
He saw cardiology 2 weeks ago and was diagnosed with new onset atrial flutter.�He had a Holter monitor that was just handed in 5 days ago.�He also recently had a lung CAT scan per his daughter.� However over the past several days they noted more
productive cough.� No measurable fever.� He is having trouble because of the cough.� They deny any leg swelling or significant weight gain.� No other complaints at this
Assessment:
SOB, mild chest pain, wet cough due to mild acute on chronic systolic heart failure
recent diagnosis of atrial flutter s/p Holter monitor
Elevated AST likely due to acute CHF, resolved
- s/p IV Lasix; now stopped
- BB indefinitely held due to marginal BP/HR
- hold Eliquis due to GI bleed
- eventual consideration of cardioversion outpatient
Hypotension due acute blood loss anemia from acute GIB/hematemesis
- s/p EGD 08/22: Large Blood clot in the second portion of the duodenum. Unable to remove the clot. No evidence of any active bleeding noted around the clot. No specimens collected.
- s/p EGD 08/24: Large duodenal ulcer with adherent clot. Clot was removed. oozing was noted around the edges. Injected. Treated with bipolar cautery. Non-bleeding duodenal ulcers with no stigmata of bleeding.
- transition PPI drip to oral BID dosing
- previously was on octreotide and empiric Abx
- s/p 2 unit PRBCs; monitor Hb
Troponin elevation due to non-ischemic myocardial injury
- Chest pain resolved
- Troponin plateaued at 0.03
Bradycardia on admission due to Coreg
- BB indefinitely held due to marginal BP/HR
Hyponatremia, resolved
COPD
Active smoking, nicotine dependence
- nicotine patch
Recent diagnosis of bronchiolitis and pt was started with doxycycline
- No resp symptom, No need to cont doxycycline
DVT ppx: SCDs given GI bleed
Code: Full
Anticipated Discharge: 24 - 48 hours
Subjective/Interval History
-
Date of Service: August 26, 2023
no evidence of GI bleeding
Hb 8.5 from 9.2
Objective Data
-
Labs:
Laboratory Results
08/26/23
05:45
WBC 9.5
Hgb 8.5 L
Hct 25.2 L
Plt Count 183
Sodium 134 L
Potassium 3.7
Chloride 106
Carbon Dioxide 28
BUN 22 H
Creatinine 0.9
Glucose 86
Calcium 8.2 L
Vital Signs:
Vital Signs
Temp Pulse Resp BP Pulse Ox
98.4 F 71 17 125/76 97
08/26/23 07:25 08/26/23 07:33 08/26/23 07:33 08/26/23 06:00 08/26/23 07:33
I&O
08/25/23 08/26/23 08/27/23
06:59 06:59 06:59
Intake Total 500 / 500 720 / 720
Output Total 1950 / 1950 1800 / 1800
Balance -1450 / -1450 -1080 / -1080
Physical Exam
-
General: No Apparent Distress
HEENT: Normocephalic and Atraumatic
Respiratory: Negative Wheezes or Rales
Cardiac: Regular Rhythm and S1/S2
GI: Soft and Nontender
Genito-urinary: No Costovertebral Tender
Musculoskeletal: No Edema
Neuro: AO x 3
Hematologic / Lymphatic: No Lymphadenopathy
Psych: Calm
Data Reviewed
-
Total Time Spent with Patient (in minutes): 42
Labs: Labs Reviewed by me
--- NOTE | 2023-08-26 09:43 | W.PN.GI.CBS2 ---
Addendum entered and electronically signed by Mike Rios MD 08/26/23 10:40:
I saw and examined the patient.
The PA's note was reviewed and I agree with the note.
Comment:
Repeat EGD yesterday as noted, cauterized oozing ulcer after clot removal. Hgb remains stable o/n. Agree with advancing diet. Hold eliquis for 72 hours post intervenion as prev recommended (ret). GI will s/o, pls call with questions.
Addendum entered and electronically signed by JOB Mcqueen 08/26/23 10:03:
pt scheduled 09/24 at 11:[address] Johnson
Original Note:
Today's Communication / Plan
-
s/p repeat EGD large duodenal ulcer with adherence clot. clot removed and oozing around edge. Treated with bipolar cautery non bleeding duodenal ulcear without bleeding
slight drop in hbg 9.2 down to 8.5 cont to follow
last stool recorded 08/23 black
ok for clear diet now then full liquid tonight with supplements
Eliquis hold 72 hour post EGD til
transition to PO Protonix BID
office follow up after discharge
Assessment / Plan
-
82 y/o male with hx of COPD,CAD, aflutter on Eliquis admitted initially with CP/SOB/ cough had an episode of hematemesis. . Prior hx of PUD. patient has been complaining of intermittent abdominal pain.
EGD 08/23/2023-old blood in the stomach/duodenum. Large clot noted in the second part of the duodenum. Unable to displace. No active bleeding
EGD 08/26/23 - normal stomach , large duodenal ulcer with adherence clot. clot removed and oozing around edge. Treated with bipolar cautery non bleeding duodenal ulcer without bleeding
- hematemesis - noted large duodenal ulcer
- abdominal pain -resolved
- elevated AST on admission - normalized now
- recent Aflutter on eliquis
- past hx of PUD
- hx of colon polyps
plan
s/p repeat EGD large duodenal ulcer with adherence clot. clot removed and oozing around edge. Treated with bipolar cautery non bleeding duodenal ulcear without bleeding
slight drop in hbg 9.2 down to 8.5 cont to follow
last stool recorded 08/23 black
ok for clear diet now then full liquid tonight with supplements
Eliquis hold 72 hour post EGD til
transition to PO Protonix BID
office follow up after discharge
Subjective
Subjective
Date of Service: August 26, 2023
08/23 black tarry stool, NPO
Objective
Data Reviewed
Laboratory Data:
Laboratory Results
08/26/23 05:45
08/26/23 05:45
Laboratory Results
Magnesium 1.8 mg/dl (1.6-2.3) 08/25/23 04:21
Total Bilirubin 0.7 mg/dl (0.2-1.3) 08/22/23 06:54
AST 41 U/L (17-59) 08/22/23 06:54
ALT 22 U/L (0-50) 08/22/23 06:54
Alkaline Phosphatase 67 U/L (38-126) 08/22/23 06:54
Lipase 88 U/L (23-300) 08/22/23 06:54
Vital Signs and I&O:
Vital Signs
Temp Pulse Resp BP Pulse Ox
98.4 F 71 17 125/76 97
08/26/23 07:25 08/26/23 07:33 08/26/23 07:33 08/26/23 06:00 08/26/23 07:33
I&O
08/25/23 08/26/23 08/27/23
06:59 06:59 06:59
Intake Total 500 / 500 720 / 720
Output Total 1950 / 1950 1800 / 1800
Balance -1450 / -1450 -1080 / -1080
Physical Exam
Physical Exam
HEENT: Anicteric and Moist mucous membranes
Cardiology: Normal Sinus Rhythm
Pulmonary: Clear
GI: Soft, Non Distended and Non Tender
Extremities: No Edema
Neuro: Non Focal
--- NOTE | 2023-08-26 10:53 | PTCARENOTE ---
Patient AAOx3, no complaints. Patient hopeful for advancing diet today. Plan for FLD at dinner. Plan for downgrade to telemetry today. VSS. Protonix drip infusing. Patient making needs known. Continuing to closely monitor patient.
--- NOTE | 2023-08-26 11:11 | W.PN.CARDCBS ---
Today's Communication / Plan
-
Continue to hold beta-nicolasa
Restart Eliquis in 48 hours per GI
Impression / Plan
-
Primary Capital Equipment Specialist: Dr. Hutson
Assessment:
Acute GIB, Hbg 9.9 -> 7.9; with hematemesis
Presentation with cough, SOB
COPD exacerbation
Atrial flutter, rate controlled of unclear duration, currently markedly [place]
CAD with prior remote 'silent' MIs, PTCA to mid RCA, SSIS ARCHITECT of distal RCA and LCx PCI in 2004
Ischemic cardiomyopathy with EF 45%
Hypertension
Dyslipidemia
Abdominal aortic aneurysm
Smoker
Chronic bronchitis
Renal insufficiency
Hyponatremia, mild
Lexiscan nuclear stress test 10/31/2021: Fixed defect in basal inferolateral, basal inferior, mid inferolateral, mid inferior segments consistent with infarction, EF 31%, no active significant coronary disease
ECHO 10/31/2021: EF 45%, basal to mid inferolateral hypokinesis, basal inferior akinesis, stage I diastolic dysfunction, mild MR, mildly dilated left atrium
ECHO 08/21/2023: EF 50 to 55%, possible basal inferior hypokinesis, moderate LVH, dilated RV, biatrial dilatation, MAC, mild to moderate MR, aortic sclerosis, mild TR, PAP 30 to 35 mmHg
Plan:
He remains in atrial flutter with a controlled ventricular response. He had some pauses overnight, but not dramatic. Will continue to hold carvedilol.
Unclear whether he was on both aspirin and Eliquis at the time of admission. Will restart Eliquis when okay with GI. Would not restart aspirin despite CAD. Hemoglobin is relatively stable.
He is off the irbesartan but blood pressure currently is controlled, will continue to follow.
Management of COPD per hospitalist service.
Continue atorvastatin 80 mg a day.
Continue to encourage smoking abstinence.
HPI: Patient is an 82-year-old male with history of CAD including SSIS ARCHITECT of RCA and LCx PCI in 2004, ischemic cardiomyopathy with EF 45%, hypertension, abdominal aortic aneurysm, COPD/emphysema with ongoing smoking, renal insufficiency who was recently
diagnosed with atrial flutter, rate controlled of unclear duration.� He underwent 7-day puffer tender which was completed, however results not yet available.� He was ordered echocardiogram, scheduled for 09/29/2023.� Head CT was also discussed due
to symptoms of vague fuzziness/hollow feeling in his head prior to Eliquis being started.� He was also recently seen by pulmonary and treated with a course of doxycycline for bronchitis.� He had recent CT of the chest with evidence of emphysema.� He
presents to emergency room due to complaints of cough and shortness of breath.� Per daughter he has felt washed out and tired over the last several days. Also with congestion and 'fullness' in his chest. No lower extremity edema or weight gain.� He
denies shortness of breath currently.� He states he chronically has some wheezing.� He appears somewhat forgetful, and was not personally able to tell me why he was in the emergency room.� Cardiology consulted as he was noted to be markedly
bradycardic in aflutter on telemetry.� On Coreg 12.5 mg twice daily as an outpatient.� Currently heart rate in the 60s on telemetry in ER.
Progress Note - Capital Equipment Specialist
Subjective
He is hungry and frustrated -states he does not know his medications
date of Service: August 26, 2023:
Allergies: None to medications
Outpatient meds: Albuterol, aspirin 81 mg a day, atorvastatin 80 mg a day, carvedilol 12.5 mg twice daily, doxycycline 100 mg twice daily, Trelegy, Mucinex, Percocet, irbesartan 150 mg daily, tamsulosin 0.4 mg at bedtime, not listed as being on
Eliquis
Current medications: No Eliquis, IV pantoprazole, Flomax 0.4 mg a day, atorvastatin 80 mg daily, nicotine patch, Symbicort, p.o. pantoprazole, carvedilol is on hold
PMH/PSH/SH/FH: Reviewed
Review of systems: Negative except as above
Hemoglobin 8.5, had been 7.9 2 days ago, platelets 183, potassium 3.7, BUN/creatinine 22 and 0.9
Some pauses overnight, carvedilol is on hold, heart rate now adequately controlled, at times looks like sinus but rhythm is flutter
He remains off Eliquis, to restart in 48 hours
Objective
Labs:
08/26/23 05:45
08/26/23 05:45
Labs
Hgb 8.5 g/dL (13.0-18.0) L 08/26/23 05:45
Hct 25.2 % (39.0-52.0) L 08/26/23 05:45
Plt Count 183 10^3/uL (130-400) 08/26/23 05:45
Sodium 134 mmol/L (135-145) L 08/26/23 05:45
Potassium 3.7 mmol/L (3.5-5.1) 08/26/23 05:45
BUN 22 mg/dl (9-20) H 08/26/23 05:45
Creatinine 0.9 mg/dL (0.7-1.3) 08/26/23 05:45
Glucose 86 mg/dl (70-99) 08/26/23 05:45
Vital Signs and I&O:
Vital Signs
Temp Pulse Resp BP Pulse Ox
36.6 C 71 26 133/87 96
08/26/23 10:55 08/26/23 10:00 08/26/23 10:00 08/26/23 09:26 08/26/23 09:26
Vital Signs
Temp Pulse Resp BP Pulse Ox
36.6 C 71 26 133/87 96
08/26/23 10:55 08/26/23 10:00 08/26/23 10:00 08/26/23 09:26 08/26/23 09:26
Intake & Output
08/24/23 08/25/23 08/26/23 08/27/23
07:59 07:59 07:59 07:59
Intake Total 2540 / 2540 500 / 500 720 / 720
Output Total 2550 / 2550 1950 / 1950 1800 / 1800
Balance -10 / -10 -1450 / -1450 -1080 / -1080
Physical Exam
Physical Exam
133/87, pulse 71, respiratory 26
He is frustrated, irritable, says he wants to eat
Head neck exam unremarkable, diminished breath sounds, irregular rate and rhythm, abdomen benign no edema JVD okay neuro nonfocal
--- NOTE | 2023-08-26 12:15 | CM ---
Patient with Dx CHF, acute blood loss anemia from acute GIB. Room air. Advancing diet. PT & OT recommend HH; plan on doing stair training.
Met with patient and spoke with daughter Jacque by phone;
the patient will be going home to son in law Tommie's house where he has been residing. The son in works during the day and patient/daughter feel patient will be okay at home alone - patient says he feels able to resume caring for himself. The
only concern is the 8 inside stairs in the split level home. Patient and daughter agree to [facility] for SN for HF education, PT & OT - daughter chooses [facility]. IMM completed.
Referral to [facility].
Plan home with [facility].
--- NOTE | 2023-08-26 18:01 | PTCARENOTE ---
pt had a bloody BM this shift, HR up to 145 with activity recovering when sitting, then later as shift went on pt's HR went up to 150 at rest and breaking quickly, but repeating many times throughout the afternoon.Cardiology made aware Metoprolol
PRN ordered.
[2023-08-26] MEDS: PROTONIX 40 MG PO (21:01)
[2023-08-27] VITALS (15 sets, daily range): BP systolic 82–149; BP diastolic 40–74; BMI 19.0
--- NOTE | 2023-08-27 03:49 | DOWNTIME ---
There was a [employer] Human Resources Benefits Administrator Downtime on 08/27/2023 from 0100 to 08/27/2023 at 0322. Downtime documentation of patient's care, including medication administrations, has been reconciled in the electronic record per guidelines. Refer to the
patient's paper chart under the miscellaneous tab to see printed paper medication records and downtime forms.
[2023-08-27 04:52] LABS: Hematocrit 24.4 % (39.0-52.0); Hemoglobin 8.3 g/dL (13.0-18.0); Mean Corpuscular Hgb 32.4 pg (27.0-31.0); Mean Corpuscular Volume 95.3 fL (80.0-94.0); Mean Platelet Volume 11.2 fL (7.4-10.4); Platelet Count 212 10^3/uL (130-400); Red Blood Cell Count 2.56 10^6/uL (4.70-6.10); Red Cell Dist. Width 14.5 % (11.5-14.5); White Blood Cell Count 12.1 10^3/uL (4.8-10.8)
[2023-08-27 05:35] LABS: Blood Urea Nitrogen 30 mg/dl (9-20); Calcium 8.5 mg/dl (8.4-10.2); Carbon Dioxide 28 mmol/L (22-30); Chloride 102 mmol/L (98-107); Estimated Creatinine Clearance 49 ml/min; Glucose 87 mg/dl (70-99); Potassium 3.7 mmol/L (3.5-5.1); Sodium 135 mmol/L (135-145); eGFR > 60.00
[2023-08-27] MEDS: SYMBICORT 160/4.5 MCG INHALER 2 PUFF INH ×2 (07:49→20:18)
[2023-08-27] MEDS: NICODERM TRANSDERMAL 14 MG TRANSDERM (08:10)
[2023-08-27] MEDS: LIPITOR 80 MG PO (08:10)
[2023-08-27] MEDS: PROTONIX 40 MG PO ×2 (08:10→20:56)
--- NOTE | 2023-08-27 10:33 | W.PN.CARDCBS ---
Addendum entered and electronically signed by Michael Saleh MD 08/27/23 11:20:
I saw and examined the patient.
The RACING MECHANIC or PA's note was reviewed and I agree with the note.
Comment: General: Well developed, well nourished in NAD.
Neck: Supple, no JVD, HJR, carotids +2 B/L, no bruits bilaterally.
Heart: Non displaced PMI, Irreg, no murmurs, No S3, S4, no rubs.
Lungs: Clear to auscultation bilaterally, no wheeze, rhonchi, rubs bilaterally,
normal expiratory phase.
Extremities: No clubbing, cyanosis or edema bilaterally.
Neuro: Grossly nonfocal, awake, alert and oriented x3.
Hr control remains suboptimal. will add lopressor 12.5 mg po bid and assess HR response with walking today. Eliquis to be resumed 08/27 am. of note outpt monitor was ok as outpt prior to admit but had long pauses in ED on coreg on admission
Original Note:
Today's Communication / Plan
-
trial lopressor 12.5mg BID, follow on tele overnight
restart eliquis 2.5mg BID in AM per GI recs
replete K, check mag
ambulate patient
Impression / Plan
-
Primary Batch Tank Controller: Dr. Hutson
Assessment:
Acute GIB, Hbg 9.9 -> 7.9; with hematemesis
Presentation with cough, SOB
COPD exacerbation
Atrial flutter, rate controlled of unclear duration, currently markedly madison
CAD with prior remote 'silent' MIs, PTCA to mid RCA, S[employer] E[employer] REPA[employer]ER of distal RCA and LCx PCI in 2004
Ischemic cardiomyopathy with EF 45%
Hypertension
Dyslipidemia
Abdominal aortic aneurysm
Smoker
Chronic bronchitis
Renal insufficiency
Hyponatremia, mild
Lexiscan nuclear stress test 10/31/2021: Fixed defect in basal inferolateral, basal inferior, mid inferolateral, mid inferior segments consistent with infarction, EF 31%, no active significant coronary disease
ECHO 10/31/2021: EF 45%, basal to mid inferolateral hypokinesis, basal inferior akinesis, stage I diastolic dysfunction, mild MR, mildly dilated left atrium
ECHO 08/21/2023: EF 50 to 55%, possible basal inferior hypokinesis, moderate LVH, dilated RV, biatrial dilatation, MAC, mild to moderate MR, aortic sclerosis, mild TR, PAP 30 to 35 mmHg
[facility] geriatric nurse 08/2023: 100% atrial flutter with variable conduction, average heart rate 69 bpm with range 31 to 140 bpm, 2 pauses with longest 2.7 seconds, 15 NSVT episodes with longest 3 beats, PVC burden 0.8%
Plan:
-he remains in aflutter with mostly controlled HRs, evidence of tachy madison syndrome. some occasional pauses however none greater than 2.5 seconds and HRs at times up to 150s. OP carvedilol remains on hold. recent OP geriatric nurse results
reviewed, as above. will attempt to place on lopressor 12.5mg BID and observe on tele overnight. he does report some occasional lightheadedness with ambulation. will have nursing/PT ambulate patient today
-we discussed he may require a pacemaker in the future so rapid rates can be treated. he also has frequent PVCs at times in pattern of bigeminy. replete K, check mag.
-eliquis 2.5mg BID was started this admission. he had acute anemia and GI bleed. by endoscopy, patient with large duodenal ulcer with adherence clot. ok to resume eliquis 2.5mg BID 08/28/23 per GI. stop OP aspirin
-He is off his OP irbesartan as well. follow BP trends
-Continue atorvastatin 80 mg a day.
-Continue to encourage tobacco cessation
-will arrange OP cardiac follow up
HPI: Patient is an 82-year-old male with history of CAD including SIGN E[employer]OR [employer] REPAIRER of RCA and LCx PCI in 2004, ischemic cardiomyopathy with EF 45%, hypertension, abdominal aortic aneurysm, COPD/emphysema with ongoing smoking, renal insufficiency who was recently
diagnosed with atrial flutter, rate controlled of unclear duration.� He underwent 7-day geriatric nurse which was completed, however results not yet available.� He was ordered echocardiogram, scheduled for 09/29/2023.� Head CT was also discussed due
to symptoms of vague fuzziness/hollow feeling in his head prior to Eliquis being started.� He was also recently seen by pulmonary and treated with a course of doxycycline for bronchitis.� He had recent CT of the chest with evidence of emphysema.� He
presents to emergency room due to complaints of cough and shortness of breath.� Per daughter he has felt washed out and tired over the last several days. Also with congestion and 'fullness' in his chest. No lower extremity edema or weight gain.� He
denies shortness of breath currently.� He states he chronically has some wheezing.� He appears somewhat forgetful, and was not personally able to tell me why he was in the emergency room.� Cardiology consulted as he was noted to be markedly
bradycardic in aflutter on telemetry.� On Coreg 12.5 mg twice daily as an outpatient.� Currently heart rate in the 60s on telemetry in ER.
Progress Note - Batch Tank Controller
Subjective
Date of Service: August 27, 2023
denies CP, SOB, bloody or dark stools. reports occasional dizziness
Objective
Labs:
08/27/23 04:06
08/27/23 04:06
Labs
Hgb 8.3 g/dL (13.0-18.0) L 08/27/23 04:06
Hct 24.4 % (39.0-52.0) L 08/27/23 04:06
Plt Count 212 10^3/uL (130-400) 08/27/23 04:06
Sodium 135 mmol/L (135-145) 08/27/23 04:06
Potassium 3.7 mmol/L (3.5-5.1) 08/27/23 04:06
BUN 30 mg/dl (9-20) H 08/27/23 04:06
Creatinine 0.9 mg/dL (0.7-1.3) 08/27/23 04:06
Glucose 87 mg/dl (70-99) 08/27/23 04:06
Vital Signs and I&O:
Vital Signs
Temp Pulse Resp BP Pulse Ox
98.0 F 75 15 149/73 99
08/27/23 08:26 08/27/23 08:26 08/27/23 08:08/27/23 08:08/27/23 10:06
Vital Signs
Temp Pulse Resp BP Pulse Ox
98.0 F 75 15 149/73 99
08/27/23 08:26 08/27/23 08:26 08/27/23 08:08/27/23 08:26 08/27/23 10:06
Intake & Output
08/25/23 08/26/23 08/27/23 08/28/23
07:59 07:59 07:59 07:59
Intake Total 500 / 500 720 / 720 460 / 460
Output Total 1950 / 1950 1800 / 1800 1250 / 1250
Balance -1450 / -1450 -1080 / -1080 -790 / -790
Physical Exam
Physical Exam
GEN: No distress, awake, alert, oriented x3
HEENT: supple, anicteric, mmm, eomi
LUNGS: CTA B/L, no wheezes
CV: Irreg, S1/S2, no murmur
ABD: soft, BS+, NT/ND
EXT: No cyanosis, clubbing, edema
NEURO: Gross non-focal
SKIN: Warm, pink, dry. No rash
[2023-08-27 11:39] LABS: Magnesium 1.7 mg/dl (1.6-2.3)
[2023-08-27] MEDS: KCL 20 MEQ PO (12:05)
[2023-08-27] MEDS: LOPRESSOR 12.5 MG PO (12:05)
--- NOTE | 2023-08-27 12:19 | VNURNOTE ---
Home Health Liaison met with patient at 1130 to discuss [facility] nurse/therapy, visits, schedule and homebound status. Patient is agreeable and understands that visits at home will be 2-3 x per week to assess and teach medical management. Patient does
not have a working scale at home. [facility] notified to provide scale at start of care visit.
Patient's daughter was called 08/25 afternoon to discuss above and questions answered.
[facility] brochure provided with contact information. Patient is aware that [facility] will contact him for start of care in 1-2 days after discharge from .
[facility] referral completed in [facility].
--- NOTE | 2023-08-27 13:09 | W.PN.HOSP.TC ---
Today's Communication/Plan
-
monitor response to BB
[facility] at mt hopefully in 24 hours
Assessment / Plan
Assessment / Plan
HPI: 82-year-old male with PMH COPD, A flutter, p/w CP, SOB and wet cough that started a few days ago.�
He saw cardiology 2 weeks ago and was diagnosed with new onset atrial flutter.�He had a Holter monitor that was just handed in 5 days ago.�He also recently had a lung CAT scan per his daughter.� However over the past several days they noted more
productive cough.� No measurable fever.� He is having trouble because of the cough.� They deny any leg swelling or significant weight gain.� No other complaints at this
Assessment:
SOB, mild chest pain, wet cough due to mild acute on chronic systolic heart failure
recent diagnosis of atrial flutter s/p Holter monitor
Elevated AST likely due to acute CHF, resolved
- s/p IV Lasix; now stopped
- BB initially held due to marginal BP/HR but now resumed - monitor response
- hold Eliquis due to GI bleed - resume in AM if Hb stable
- eventual consideration of cardioversion outpatient
Hypotension due acute blood loss anemia from acute GIB/hematemesis
- s/p EGD 08/22: Large Blood clot in the second portion of the duodenum. Unable to remove the clot. No evidence of any active bleeding noted around the clot. No specimens collected.
- s/p EGD 08/24: Large duodenal ulcer with adherent clot. Clot was removed. oozing was noted around the edges. Injected. Treated with bipolar cautery. Non-bleeding duodenal ulcers with no stigmata of bleeding.
- transition PPI drip to oral BID dosing
- previously was on octreotide and empiric Abx
- s/p 2 unit PRBCs; monitor Hb
Troponin elevation due to non-ischemic myocardial injury
- Chest pain resolved
- Troponin plateaued at 0.03
Bradycardia on admission due to Coreg
- BB initially held due to marginal BP/HR but now resumed - monitor response
Hyponatremia, resolved
COPD
Active smoking, nicotine dependence
- nicotine patch
Recent diagnosis of bronchiolitis and pt was started with doxycycline
- No resp symptom, No need to cont doxycycline
DVT ppx: SCDs given GI bleed
Code: Full
Anticipated Discharge: Within 24 hours
Subjective/Interval History
-
Date of Service: August 27, 2023
mild dark stool overnight but Hb stable
reports occasional dizziness no cp or sob
BB reintroduced by Cards
Objective Data
-
Labs:
Laboratory Results
08/27/23
04:06
WBC 12.1 H
Hgb 8.3 L
Hct 24.4 L
Plt Count 212
Sodium 135
Potassium 3.7
Chloride 102
Carbon Dioxide 28
BUN 30 H
Creatinine 0.9
Glucose 87
Calcium 8.5
Vital Signs:
Vital Signs
Temp Pulse Resp BP Pulse Ox
98.3 F 98 17 108/74 97
08/27/23 11:01 08/27/23 12:05 08/27/23 11:01 08/27/23 12:05 08/27/23 11:01
I&O
08/26/23 08/27/23 08/28/23
06:59 06:59 06:59
Intake Total 720 / 720 460 / 460
Output Total 1800 / 1800 1250 / 1250 100 / 100
Balance -1080 / -1080 -790 / -790 -100 / -100
Physical Exam
-
General: No Apparent Distress
HEENT: Normocephalic and Atraumatic
Respiratory: Negative Wheezes
Cardiac: Regular Rhythm and S1/S2
GI: Soft
Genito-urinary: No Costovertebral Tender
Neuro: AO x 3
Psych: Calm
Data Reviewed
-
Total Time Spent with Patient (in minutes): 41
Labs: Labs Reviewed by me
--- NOTE | 2023-08-27 13:33 | CM ---
Anticipate discharge home on , 08/28/23, with [facility] and [employer] worker services.
[2023-08-27] MEDS: MAGNESIUM OXIDE 500 MG PO (16:18)
--- NOTE | 2023-08-27 16:26 | PTCARENOTE ---
Addendum entered by Cecilia Bruno RN 08/27/23 18:25:
Repeat H&H ordered after heme test positive BM; hct 7.4 hct 22.5. MD made aware, order for Type and Screen and 1 unit PRBC placed.
Original Note:
Automatic BP taken by tech 87/47, manual taken by RN 82/40, repeat automatic BP 79/37; HR in 70s NSR with occasional PVCs on tele monitor. Patient denies any dizziness or lightheadedness. MD and cardiology made aware, order for stat magnesium oxide
and UA placed by cardiology. Patient laid supine in bed with HOB down, repeat BP taken 100/47. Patient continues to state no concerns at this time, MD and cardiology updated, no new orders at this time. Call alves and bed alarm in place.
[2023-08-27 17:06] LABS: Hematocrit 22.5 % (39.0-52.0); Hemoglobin 7.4 g/dL (13.0-18.0)
[2023-08-27 17:07] LABS: Urine Albumin Negative (Neg - Trace); Urine Bilirubin Negative (Negative); Urine Character Clear (Clear); Urine Color Yellow; Urine Glucose Negative (Negative); Urine Ketone Negative (Negative); Urine Leukocyte Negative (Negative); Urine Nitrite Negative (Negative); Urine Occult Blood Negative (Negative); Urine Urobilinogen Negative (Neg - 1+)
[2023-08-27] MEDS: LOPRESSOR PO (20:56)
[2023-08-27] MEDS: FLOMAX PO (21:53)
--- NOTE | 2023-08-27 22:46 | PTCARENOTE ---
When verifying blood with second RN, patient reported chest pain. Patient stated pain was 8/10, sharp, and in center of chest. Patient reported this chest pain started shortly after administering PO Protonix. Patient reported chest pain completely
resolved after approximately 3 minutes. No other complaints at that time. ECG obtained. VEGETABLE LOADER notified. Blood started without issue - see TAR.
[2023-08-28] VITALS (8 sets, daily range): BP systolic 96–121; BP diastolic 45–73; BMI 18.9
[2023-08-28 06:16] LABS: Hemoglobin 8.2 g/dL (13.0-18.0); Mean Corp Hgb Conc. 34.2 g/dL (33.0-37.0); Mean Corpuscular Hgb 32.8 pg (27.0-31.0); Mean Platelet Volume 11.3 fL (7.4-10.4); Platelet Count 210 10^3/uL (130-400); Red Cell Dist. Width 14.2 % (11.5-14.5); White Blood Cell Count 12.9 10^3/uL (4.8-10.8)
[2023-08-28 06:46] LABS: Blood Urea Nitrogen 40 mg/dl (9-20); Calcium 8.5 mg/dl (8.4-10.2); Carbon Dioxide 27 mmol/L (22-30); Chloride 101 mmol/L (98-107); Estimated Creatinine Clearance 49 ml/min; Glucose 82 mg/dl (70-99); Magnesium 1.7 mg/dl (1.6-2.3); Potassium 3.8 mmol/L (3.5-5.1); Sodium 135 mmol/L (135-145); eGFR > 60.00
[2023-08-28] MEDS: SYMBICORT 160/4.5 MCG INHALER 2 PUFF INH ×2 (07:44→20:13)
[2023-08-28] MEDS: PROTONIX 40 MG PO ×2 (08:27→20:26)
[2023-08-28] MEDS: LIPITOR 80 MG PO (08:27)
[2023-08-28] MEDS: NICODERM TRANSDERMAL 14 MG TRANSDERM (08:27)
[2023-08-28] MEDS: LOPRESSOR 12.5 MG PO (08:27)
--- NOTE | 2023-08-28 09:02 | W.PN.CARDCBS ---
Addendum entered and electronically signed by Kendrick Thomas MD 08/28/23 12:44:
I saw and examined the patient.
The Executive Relations Specialist's note was reviewed and I agree with the note.
Comment:
GEN: No distress, awake, Ox3
HEENT: supple, anicteric, mmm
LUNGS: scatt rhonchi
CV: irreg, S1/S2, 1/6 syst LSB, no gallop
ABD: soft, BS+, NT/ND
EXT: No edema
NEURO: Gross non-focal
SKIN: No rash
plan:
I reviewed his telemetry and his A-flutter is overall stable. He does have some occasional 2.5-second pauses but these are acceptable. We will also except some mildly elevated heart rates. Would continue Lopressor 12.5 mg p.o. twice daily.
Hemoglobin at 8.5. Continue to hold Eliquis.
I discussed with him his a flutter he does not desire a cardioversion. We will continue a rate control strategy.
Original Note:
Today's Communication / Plan
-
Follow hemoglobin. Eliquis on hold an additional 48H per GI
HRs overall stable on lopressor 12.5mg BID, continue to follow on tele while admitted
Replete K and mag
Impression / Plan
-
Primary Oxidation Operator: Dr. Hutson
Assessment:
Acute GIB, Hbg 9.9 -> 7.9; with hematemesis
Presentation with cough, SOB
COPD exacerbation
Atrial flutter, rate controlled of unclear duration, currently markedly madison
CAD with prior remote 'silent' MIs, PTCA to mid RCA, [employer] of distal RCA and LCx PCI in 2004
Ischemic cardiomyopathy with EF 45%
Hypertension
Dyslipidemia
Abdominal aortic aneurysm
Smoker
Chronic bronchitis
Renal insufficiency
Hyponatremia, mild
Lexiscan nuclear stress test 10/31/2021: Fixed defect in basal inferolateral, basal inferior, mid inferolateral, mid inferior segments consistent with infarction, EF 31%, no active significant coronary disease
ECHO 10/31/2021: EF 45%, basal to mid inferolateral hypokinesis, basal inferior akinesis, stage I diastolic dysfunction, mild MR, mildly dilated left atrium
ECHO 08/21/2023: EF 50 to 55%, possible basal inferior hypokinesis, moderate LVH, dilated RV, biatrial dilatation, MAC, mild to moderate MR, aortic sclerosis, mild TR, PAP 30 to 35 mmHg
CAM monitor 08/2023: 100% atrial flutter with variable conduction, average heart rate 69 bpm with range 31 to 140 bpm, 2 pauses with longest 2.7 seconds, 15 NSVT episodes with longest 3 beats, PVC burden 0.8%
Plan:
-Remains in aflutter with mostly controlled HRs on review of telemetry. 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
-Tachycardia appears improved after starting low dose lopressor 12.5mg BID. Still without significant pauses on tele.
-Patient feels well and reports no complaints or concerns overnight, although after discussing with RN, patient apparently noted CP after PM dose of protonix that resolved after a few minutes. EKG stable and no recurrence.
-Patient denies any palpitations or dizziness/lightheadedness today.
-Discussed he may eventually require a pacemaker in the future so rapid rates can be treated.
-Eliquis 2.5mg BID was started this admission, but then held due to acute anemia and GIB. Endoscopy noted large duodenal ulcer with adherent clot.
-Holding Eliquis 2.5mg BID an additional 48 hours per GI, as patient had hypotension and worsening anemia requiring transfusion in PM 08/26. Aspirin stopped.
-Hgb improved this AM to 8.2 from 7.4 in PM 08/26.
-Replete K and mag.
-He is off his OP irbesartan as well. follow BP trends
-Continue atorvastatin 80 mg a day.
-Continue to encourage tobacco cessation
-Will arrange OP cardiac follow up
HPI: Patient is an 82-year-old male with history of CAD including [employer] of RCA and LCx PCI in 2004, ischemic cardiomyopathy with EF 45%, hypertension, abdominal aortic aneurysm, COPD/emphysema with ongoing smoking, renal insufficiency who was recently
diagnosed with atrial flutter, rate controlled of unclear duration.� He underwent 7-day blunger which was completed, however results not yet available.� He was ordered echocardiogram, scheduled for 09/29/2023.� Head CT was also discussed due
to symptoms of vague fuzziness/hollow feeling in his head prior to Eliquis being started.� He was also recently seen by pulmonary and treated with a course of doxycycline for bronchitis.� He had recent CT of the chest with evidence of emphysema.� He
presents to emergency room due to complaints of cough and shortness of breath.� Per daughter he has felt washed out and tired over the last several days. Also with congestion and 'fullness' in his chest. No lower extremity edema or weight gain.� He
denies shortness of breath currently.� He states he chronically has some wheezing.� He appears somewhat forgetful, and was not personally able to tell me why he was in the emergency room.� Cardiology consulted as he was noted to be markedly
bradycardic in aflutter on telemetry.� On Coreg 12.5 mg twice daily as an outpatient.� Currently heart rate in the 60s on telemetry in ER.
Progress Note - Oxidation Operator
Subjective
Date of Service: August 28, 2023
No current complaints. Denies SOB.
Objective
Labs:
08/28/23 04:46
08/28/23 04:46
Labs
Hgb 8.2 g/dL (13.0-18.0) L 08/28/23 04:46
Hct 24.0 % (39.0-52.0) L 08/28/23 04:46
Plt Count 210 10^3/uL (130-400) 08/28/23 04:46
Sodium 135 mmol/L (135-145) 08/28/23 04:46
Potassium 3.8 mmol/L (3.5-5.1) 08/28/23 04:46
BUN 40 mg/dl (9-20) H 08/28/23 04:46
Creatinine 0.9 mg/dL (0.7-1.3) 08/28/23 04:46
Glucose 82 mg/dl (70-99) 08/28/23 04:46
Vital Signs and I&O:
Vital Signs
Temp Pulse Resp BP Pulse Ox
98.1 F 75 16 121/67 96
08/28/23 07:20 08/28/23 08:27 08/28/23 07:48 08/28/23 08:27 08/28/23 07:48
Vital Signs
Temp Pulse Resp BP Pulse Ox
98.1 F 75 16 121/67 96
08/28/23 07:20 08/28/23 08:27 08/28/23 07:48 08/28/23 08:27 08/28/23 07:48
Intake & Output
08/26/23 08/27/23 08/28/23 08/29/23
06:59 06:59 06:59 06:59
Intake Total 720 / 720 460 / 460 1450 / 1450
Output Total 1800 / 1800 1250 / 1250 1200 / 1200
Balance -1080 / -1080 -790 / -790 250 / 250
Physical Exam
Physical Exam
GEN: No distress, awake, alert, oriented x3
HEENT: supple, anicteric, mmm, eomi
LUNGS: CTA B/L, no wheezes
CV: Irreg, S1/S2, no murmur
EXT: No cyanosis, clubbing, edema
NEURO: Gross non-focal
SKIN: Warm, pink, dry. No rash
--- NOTE | 2023-08-28 09:12 | W.PN.GI.CBS2 ---
Addendum entered and electronically signed by Mike Rios MD 08/28/23 18:25:
I saw and examined the patient.
The PA's note was reviewed and I agree with the note.
Comment:
Called back for episode of melenic stool, hypotension and drop in Hgb. No further melenic stool and Hgb back up to 8.2 after transfusion. ? rebleed at this time. Hold eliquis for 48 hours and can resume if no further melena/Hgb remains stable.
Will hold repeat endo for now.
Original Note:
Today's Communication / Plan
-
s/p repeat EGD large duodenal ulcer with adherence clot. clot removed and oozing around edge. Treated with bipolar cautery non bleeding duodenal ulcear without bleeding
episode of hypotension and some drift down of hbg 08/26 s/p transfusion and up to 8.2 today
no further stools overnight and improved BP
resume low residue diet
Eliquis hold additional [address] Rios and Dr. Gutierrez
cont PPI BID x 8 weeks then daily
pt scheduled 08/[address] Johnson for follow up
stressed to patient high risk of rebleeding return to hospital for recurrent bleeding- black/bloody stools, pain, dizziness, or problems
updated nursing staff and hospitalist
Assessment / Plan
-
82 y/o male with hx of COPD,CAD, aflutter on Eliquis admitted initially with CP/SOB/ cough had an episode of hematemesis. . Prior hx of PUD. patient has been complaining of intermittent abdominal pain.
EGD 08/23/2023-old blood in the stomach/duodenum. Large clot noted in the second part of the duodenum. Unable to displace. No active bleeding
EGD 08/26/23 - normal stomach , large duodenal ulcer with adherence clot. clot removed and oozing around edge. Treated with bipolar cautery non bleeding duodenal ulcer without bleeding
- hematemesis - noted large duodenal ulcer
- abdominal pain -resolved
- elevated AST on admission - normalized now
- recent Aflutter on eliquis
- past hx of PUD
- hx of colon polyps
plan
s/p repeat EGD large duodenal ulcer with adherence clot. clot removed and oozing around edge. Treated with bipolar cautery non bleeding duodenal ulcear without bleeding
episode of hypotension and some drift down of hbg 08/26 s/p transfusion and up to 8.2 today
no further stools overnight and improved BP
resume low residue diet
Eliquis hold additional 48 hours as reviewed with Dr. Rios and Dr. Gutierrez
cont PPI BID x 8 weeks then daily
pt scheduled 08/[address] Johnson for follow up
stressed to patient high risk of rebleeding return to hospital for recurrent bleeding- black/bloody stools, pain, dizziness, or problems
updated nursing staff and hospitalist
Subjective
Subjective
Date of Service: August 28, 2023
black stool 08/26 no further stools overnight, on clear diet, BP stable
Objective
Data Reviewed
Laboratory Data:
Laboratory Results
08/28/23 04:46
08/28/23 04:46
Laboratory Results
Magnesium 1.7 mg/dl (1.6-2.3) 08/28/23 04:46
Total Bilirubin 0.7 mg/dl (0.2-1.3) 08/22/23 06:54
AST 41 U/L (17-59) 08/22/23 06:54
ALT 22 U/L (0-50) 08/22/23 06:54
Alkaline Phosphatase 67 U/L (38-126) 08/22/23 06:54
Lipase 88 U/L (23-300) 08/22/23 06:54
Vital Signs and I&O:
Vital Signs
Temp Pulse Resp BP Pulse Ox
98.1 F 75 16 121/67 96
08/28/23 07:20 08/28/23 08:27 08/28/23 07:48 08/28/23 08:27 08/28/23 07:48
I&O
08/27/23 08/28/23 08/29/23
06:59 06:59 06:59
Intake Total 460 / 460 1450 / 1450
Output Total 1250 / 1250 1200 / 1200
Balance -790 / -790 250 / 250
Physical Exam
Physical Exam
HEENT: Anicteric and Moist mucous membranes
Cardiology: Normal Sinus Rhythm
Pulmonary: Clear
GI: Soft, Non Distended and Non Tender
Extremities: No Edema
Neuro: Non Focal
[2023-08-28] MEDS: MAGNESIUM OXIDE 500 MG PO (10:52)
[2023-08-28] MEDS: KCL 20 MEQ PO (10:52)
--- NOTE | 2023-08-28 11:00 | PTCARENOTE ---
Patient with large soft black colored BM in toilet. Heme test taken by tech positive. Patient states no concerns, MD and GI made aware, no new orders at this time.
--- NOTE | 2023-08-28 11:11 | W.PN.HOSP.TC ---
Today's Communication/Plan
-
Monitor labs/vitals/tele
follow bcx
continue PPI
Assessment / Plan
Assessment / Plan
HPI: 82-year-old male with PMH COPD, A flutter, p/w CP, SOB and wet cough that started a few days ago.�
He saw cardiology 2 weeks ago and was diagnosed with new onset atrial flutter.�He had a Holter monitor that was just handed in 5 days ago.�He also recently had a lung CAT scan per his daughter.� However over the past several days they noted more
productive cough.� No measurable fever.� He is having trouble because of the cough.� They deny any leg swelling or significant weight gain.� No other complaints at this
Assessment:
SOB, mild chest pain, wet cough due to mild acute on chronic systolic heart failure
recent diagnosis of atrial flutter s/p Holter monitor
Elevated AST likely due to acute CHF, resolved
- s/p IV Lasix; now stopped
- continue BB - follow HR/Tele
- hold Eliquis due to GI bleed additional 48 hours per GI
- eventual consideration of cardioversion outpatient
Hypotension due acute blood loss anemia from acute GIB/hematemesis
- s/p EGD 08/22: Large Blood clot in the second portion of the duodenum. Unable to remove the clot. No evidence of any active bleeding noted around the clot. No specimens collected.
- s/p EGD 08/24: Large duodenal ulcer with adherent clot. Clot was removed. oozing was noted around the edges. Injected. Treated with bipolar cautery. Non-bleeding duodenal ulcers with no stigmata of bleeding.
- transition PPI drip to oral BID dosing x 8 weeks then daily
- previously was on octreotide and empiric Abx
- s/p 3 unit PRBCs; monitor Hb which is 8.2 and monitor stool quality
- continue low res diet
Troponin elevation due to non-ischemic myocardial injury
- Chest pain resolved
- Troponin plateaued at 0.03
Bradycardia on admission due to Coreg
- continue BB - follow HR/Tele
Leukocytosis
- no infectious s/s
- UA clear
- await Bcx
Hyponatremia, resolved
COPD
Active smoking, nicotine dependence
- nicotine patch
Recent diagnosis of bronchiolitis and pt was started with doxycycline
- No resp symptom, No need to cont doxycycline
DVT ppx: SCDs given GI bleed
Code: Full
Anticipated Discharge: Within 24 hours
Subjective/Interval History
-
Date of Service: August 28, 2023
hypotension yesterday, improved with blood
Hb 8.2 today
lesser but dark stools today, no sign of abrupt or active bleeding
diet added by GI
denies fever/chills
Objective Data
-
Labs:
Laboratory Results
08/28/23
04:46
WBC 12.9 H
Hgb 8.2 L
Hct 24.0 L
Plt Count 210
Sodium 135
Potassium 3.8
Chloride 101
Carbon Dioxide 27
BUN 40 H
Creatinine 0.9
Glucose 82
Calcium 8.5
Vital Signs:
Vital Signs
Temp Pulse Resp BP Pulse Ox
98.1 F 75 16 121/67 96
08/28/23 07:20 08/28/23 08:27 08/28/23 07:48 08/28/23 08:27 08/28/23 10:01
I&O
08/27/23 08/28/23 08/29/23
06:59 06:59 06:59
Intake Total 460 / 460 1450 / 1450
Output Total 1250 / 1250 1200 / 1200
Balance -790 / -790 250 / 250
Physical Exam
-
General: No Apparent Distress
HEENT: Normocephalic and Atraumatic
Respiratory: Negative Wheezes
Cardiac: Irregular Rhythm
GI: Soft and Nontender
Genito-urinary: No Costovertebral Tender
Neuro: AO x 3
Hematologic / Lymphatic: No Lymphadenopathy
Psych: Calm
Data Reviewed
-
Total Time Spent with Patient (in minutes): 45
Labs: Labs Reviewed by me
--- NOTE | 2023-08-28 15:36 | PN.CDI ---
CDI
- -
CDI:
Physician Documentation Request
Admit Date: 08/20/23 13:52
Dear Doctor Brenda,
Please review the following and provide your response in the progress notes.
Clinical Indicators:
PN, 08/27
#- hold Eliquis due to GI bleed additional 48 hours per GI
Cardiology PN, 08/27
#Hemoglobin at 8.5. Continue to hold Eliquis.
#-Eliquis 2.5mg BID was started this admission, but then held due to acute anemia and GIB. #Endoscopy noted large duodenal ulcer with adherent clot.
#-Holding Eliquis 2.5mg BID an additional 48 hours per GI,
#...as patient had hypotension and worsening anemia requiring transfusion in PM 08/26. #Aspirin stopped.
Please clarify the relationship, if any, between these conditions:
Yes, GI Bleed is enhanced by/contributed to/associated with/due to Eliquis/Aspirin.
No, GI Bleed is not enhanced by/contributed to/associated with/due to Eliquis/Aspirin but it is due to ___. (Please specify)
Other
Use of terms such as suspected, likely, concern for, or probable (associated with a specific diagnosis that is being evaluated, monitored, or treated as if it exists) are acceptable and can be coded in the inpatient setting, when documented at the
time of discharge.
Thank you,
Dagmar Carver RN BSN CCDS
CDI Specialist
please contact via tiger text
Please use your independent medical judgment in providing your response.
--- NOTE | 2023-08-28 15:43 | PN.CDI ---
CDI
- -
CDI:
Physician Documentation Request
Admit Date: 08/20/23 13:52
Dear Doctor Brenda,
Please review the following and provide your response in the progress notes.
Current documentation includes a diagnosis of hypotension.
Clinical Indicators:
PN, 08/22
# Hypotension likely due acute blood loss anemia from GIB/hematemesis
#BP improved after IVF
Cardiology PN, 08/27
#-Holding Eliquis 2.5mg BID an additional 48 hours per GI,
#...as patient had hypotension and worsening anemia requiring transfusion in PM 08/26. #Aspirin stopped.
Selected Entries
08/23/23
11:46 08/23/23
12:30 08/23/23
13:00
MAP (cuff-Susan Monitor) 55 67 71
08/23/23
23:00 08/23/23
23:30 08/24/23
10:00
MAP (cuff-Susan Monitor) 53 53 71
08/24/23
10:30
MAP (cuff-Susan Monitor) 70
Please clarify which of the following is the most likely etiology of the above symptoms and treatment rendered:
Hypovolemic shock - indicate if due to surgery, trauma or other etiology
Hemorrhagic shock - indicate if due to surgery, trauma or other etiology
Shock, unknown type
Hypotension - indicate type/etiology, such as idiopathic, neurogenic or orthostatic, post-procedural, postoperative, due to hemodialysis, chronic, drug induced (indicate drug), etc.
Hypotension - unknown type/etiology
Other
Use of terms such as suspected, likely, concern for, or probable (associated with a specific diagnosis that is being evaluated, monitored, or treated as if it exists) are acceptable and can be coded in the inpatient setting, when documented at the
time of discharge.
Thank you,
Dagmar Carver RN BSN CCDS
CDI Specialist
please contact via tiger text
Please use your independent medical judgment in providing your response.
--- NOTE | 2023-08-28 15:45 | CM ---
DISCHARGE PLAN OF CARE: Home with [facility] VN and PT.
[2023-08-28] MEDS: LOPRESSOR PO (20:26)
[2023-08-28] MEDS: NORCO 5/325 1 TABLET PO (20:26)
[2023-08-28 21:00] LABS: Hematocrit 24.9 % (39.0-52.0); Hemoglobin 8.5 g/dL (13.0-18.0)
[2023-08-28] MEDS: FLOMAX 0.400000000000000022 MG PO (23:08)
[2023-08-29] VITALS (18 sets, daily range): BP systolic 16–119; BP diastolic 36–69; PULSE 71; O2SAT 97; BMI 18.5
--- NOTE | 2023-08-29 03:28 | PTCARENOTE ---
At approximately 0300, patient bed alarm going off and patient attempting to get OOB. Patient's telemonitor alarming w/ HR approximately 140 with exertion. Patient complaining of dizziness when attempting to stand. Patient assisted back to bed.
Vital signs obtained. BP 91/47, HR 73. Patient offering no complaints once resting in bed. WEB KNITTER notified. 1 unit of PRBCs ordered. Instructed to obtain AM labs prior to hanging blood. AM labs obtained.
[2023-08-29 03:44] LABS: Hematocrit 21.8 % (39.0-52.0); Hemoglobin 7.6 g/dL (13.0-18.0); Mean Corp Hgb Conc. 34.9 g/dL (33.0-37.0); Mean Corpuscular Hgb 33.5 pg (27.0-31.0); Mean Platelet Volume 10.8 fL (7.4-10.4); Platelet Count 219 10^3/uL (130-400); Red Blood Cell Count 2.27 10^6/uL (4.70-6.10); Red Cell Dist. Width 14.8 % (11.5-14.5); White Blood Cell Count 9.9 10^3/uL (4.8-10.8)
[2023-08-29 04:02] LABS: Blood Urea Nitrogen 32 mg/dl (9-20); Calcium 8.3 mg/dl (8.4-10.2); Carbon Dioxide 29 mmol/L (22-30); Chloride 103 mmol/L (98-107); Estimated Creatinine Clearance 49 ml/min; Glucose 96 mg/dl (70-99); Potassium 3.9 mmol/L (3.5-5.1); Sodium 137 mmol/L (135-145); eGFR > 60.00
--- NOTE | 2023-08-29 04:37 | W.PN.UPDATE ---
Update Note
Progress Note Update
Will transfuse one unit PRBCs for hgb 7.6. SBP 90s and tachycardic with movement.
[2023-08-29] MEDS: SYMBICORT 160/4.5 MCG INHALER INH (07:33)
--- NOTE | 2023-08-29 08:24 | W.PN.CARDCBS ---
Addendum entered and electronically signed by Michael Saleh MD 08/29/23 11:44:
I saw and examined the patient.
The AIRPLANE FUELER or PA's note was reviewed and I agree with the note.
Comment: General: Well developed, well nourished in NAD.
Neck: Supple, no JVD, HJR, carotids +2 B/L, no bruits bilaterally.
Heart: Non displaced PMI, irregular, no murmurs, No S3, S4, no rubs.
Lungs: Scattered rhonchi
Extremities: No clubbing, cyanosis or edema bilaterally.
Neuro: Grossly nonfocal, awake, alert and oriented x3.
He is for repeat endoscopy to evaluate source of bleeding. Stable cardiology status for GI procedures. Heart rate control reasonable on low-dose Lopressor.
Original Note:
Today's Communication / Plan
-
Continue lopressor 12.5mg BID
Eliquis remains on hold.
Repeat EGD today per GI
Impression / Plan
-
Primary Academic Support Coordinator: Dr. Hutson
Assessment:
Acute GIB, Hbg 9.9 -> 7.9; with hematemesis
Presentation with cough, SOB
COPD exacerbation
Atrial flutter, rate controlled of unclear duration, currently markedly [place]
CAD with prior remote 'silent' MIs, PTCA to mid RCA, RECOIL SPRING WINDER of distal RCA and LCx PCI in 2004
Ischemic cardiomyopathy with EF 45%
Hypertension
Dyslipidemia
Abdominal aortic aneurysm
Smoker
Chronic bronchitis
Renal insufficiency
Hyponatremia, mild
Lexiscan nuclear stress test 10/31/2021: Fixed defect in basal inferolateral, basal inferior, mid inferolateral, mid inferior segments consistent with infarction, EF 31%, no active significant coronary disease
ECHO 10/31/2021: EF 45%, basal to mid inferolateral hypokinesis, basal inferior akinesis, stage I diastolic dysfunction, mild MR, mildly dilated left atrium
ECHO 08/21/2023: EF 50 to 55%, possible basal inferior hypokinesis, moderate LVH, dilated RV, biatrial dilatation, MAC, mild to moderate MR, aortic sclerosis, mild TR, PAP 30 to 35 mmHg
CAM monitor 08/2023: 100% atrial flutter with variable conduction, average heart rate 69 bpm with range 31 to 140 bpm, 2 pauses with longest 2.7 seconds, 15 NSVT episodes with longest 3 beats, PVC burden 0.8%
Plan:
-Remains in aflutter with mostly controlled HRs on review of telemetry. 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
-Tachycardia appears improved after starting low dose lopressor 12.5mg BID. Still without significant pauses on tele.
-Discussed he may eventually require a pacemaker in the future so rapid rates can be treated.
-He did have episode of dizziness overnight when standing, however this was in the setting of worsening anemia requiring transfusion. Hgb down to 7.6 this AM.
-Per GI, plan is to repeat EGD today. Prior endoscopy noted large duodenal ulcer with adherent clot 08/24.
-Eliquis 2.5mg BID was started this admission, but has been on hold due to acute anemia and GIB. s/p 4 units PRBCs this admission.
-He is off his OP irbesartan due to hypotension
-Continue atorvastatin 80 mg a day.
-Continue to encourage tobacco cessation
HPI: Patient is an 82-year-old male with history of CAD including RECOIL SPRING WINDER of RCA and LCx PCI in 2004, ischemic cardiomyopathy with EF 45%, hypertension, abdominal aortic aneurysm, COPD/emphysema with ongoing smoking, renal insufficiency who was recently
diagnosed with atrial flutter, rate controlled of unclear duration.� He underwent 7-day mica paster which was completed, however results not yet available.� He was ordered echocardiogram, scheduled for 09/29/2023.� Head CT was also discussed due
to symptoms of vague fuzziness/hollow feeling in his head prior to Eliquis being started.� He was also recently seen by pulmonary and treated with a course of doxycycline for bronchitis.� He had recent CT of the chest with evidence of emphysema.� He
presents to emergency room due to complaints of cough and shortness of breath.� Per daughter he has felt washed out and tired over the last several days. Also with congestion and 'fullness' in his chest. No lower extremity edema or weight gain.� He
denies shortness of breath currently.� He states he chronically has some wheezing.� He appears somewhat forgetful, and was not personally able to tell me why he was in the emergency room.� Cardiology consulted as he was noted to be markedly
bradycardic in aflutter on telemetry.� On Coreg 12.5 mg twice daily as an outpatient.� Currently heart rate in the 60s on telemetry in ER.
Progress Note - Academic Support Coordinator
Subjective
Date of Service: August 29, 2023
Some dizziness w/ standing overnight. Improved this AM. Still with dark stools.
Objective
Labs:
08/29/23 03:33
08/29/23 03:33
Labs
Hgb 7.6 g/dL (13.0-18.0) L 08/29/23 03:33
Hct 21.8 % (39.0-52.0) L 08/29/23 03:33
Plt Count 219 10^3/uL (130-400) 08/29/23 03:33
Sodium 137 mmol/L (135-145) 08/29/23 03:33
Potassium 3.9 mmol/L (3.5-5.1) 08/29/23 03:33
BUN 32 mg/dl (9-20) H 08/29/23 03:33
Creatinine 0.9 mg/dL (0.7-1.3) 08/29/23 03:33
Glucose 96 mg/dl (70-99) 08/29/23 03:33
Vital Signs and I&O:
Vital Signs
Temp Pulse Resp BP Pulse Ox
97.9 F 72 18 117/58 96
08/29/23 06:52 08/29/23 06:52 08/29/23 06:52 08/29/23 06:52 08/29/23 06:52
Vital Signs
Temp Pulse Resp BP Pulse Ox
97.9 F 72 18 117/58 96
08/29/23 06:52 08/29/23 06:52 08/29/23 06:52 08/29/23 06:52 08/29/23 06:52
Intake & Output
08/27/23 08/28/23 08/29/23 08/30/23
06:59 06:59 06:59 06:59
Intake Total 460 / 460 1450 / 1450 1210 / 1210
Output Total 1250 / 1250 1200 / 1200 600 / 600
Balance -790 / -790 250 / 250 610 / 610
Physical Exam
Physical Exam
GEN: No distress, awake, alert, oriented x3
HEENT: anicteric, mmm
LUNGS: CTA B/L, no wheezes
CV: Irreg, S1/S2, no murmur
EXT: No cyanosis, clubbing, edema
NEURO: Gross non-focal
SKIN: Warm, pink, dry. No rash
[2023-08-29] MEDS: LOPRESSOR 12.5 MG PO ×2 (08:39→20:32)
[2023-08-29] MEDS: NICODERM TRANSDERMAL 14 MG TRANSDERM (08:40)
[2023-08-29] MEDS: PROTONIX 40 MG PO (08:40)
[2023-08-29] MEDS: LIPITOR 80 MG PO (08:43)
--- NOTE | 2023-08-29 08:54 | W.PN.UPDATE ---
Addendum entered and electronically signed by JOB Mcqueen 08/29/23 09:36:
updated Jacque on plan
Addendum entered and electronically signed by JOB Mcqueen 08/29/23 09:01:
will change back to Protonix IV BID
Original Note:
Update Note
Progress Note Update
noted with still some dark stools, tachycardia last PM and drop in hbg. Total 4 units transfused. Reviewed with patient, Dr. Zhang and Dr. Gutierrez for repeat EGD today. cont to hold eliquis with bleeding. I left message with both daughters with
update and GI contact information.
--- NOTE | 2023-08-29 13:38 | W.PN.UPDATE ---
Update Note
Progress Note Update
daughter Jacque updated at EGD results.
--- NOTE | 2023-08-29 13:40 | SUR.PHASEI ---
Report to Steffi. Rafia alvarez RN BSN.
[2023-08-29] MEDS: PROTONIX 100 IV ×2 (14:30→23:23)
--- NOTE | 2023-08-29 16:17 | CM ---
EGD completed. Discharge Plan of Care: Home with [facility] and PT.
--- NOTE | 2023-08-29 16:41 | W.PN.HOSP.TC ---
Today's Communication/Plan
-
clears; ADAT per GI
monitor Hb
holding Eliquis
continue BB
Assessment / Plan
Assessment / Plan
HPI: 82-year-old male with PMH COPD, A flutter, p/w CP, SOB and wet cough that started a few days ago.�
He saw cardiology 2 weeks ago and was diagnosed with new onset atrial flutter.�He had a Holter monitor that was just handed in 5 days ago.�He also recently had a lung CAT scan per his daughter.� However over the past several days they noted more
productive cough.� No measurable fever.� He is having trouble because of the cough.� They deny any leg swelling or significant weight gain.� No other complaints at this
Assessment:
SOB, mild chest pain, wet cough due to mild acute on chronic systolic heart failure
recent diagnosis of atrial flutter s/p Holter monitor
Elevated AST likely due to acute CHF, resolved
- s/p IV Lasix; now stopped
- continue BB - follow HR/Tele
- hold Eliquis due to GI bleed
- eventual consideration of cardioversion outpatient
Hypotension due acute blood loss anemia from acute GIB/hematemesis
- s/p EGD 08/22: Large Blood clot in the second portion of the duodenum. Unable to remove the clot. No evidence of any active bleeding noted around the clot. No specimens collected.
- s/p EGD 08/24: Large duodenal ulcer with adherent clot. Clot was removed. oozing was noted around the edges. Injected. Treated with bipolar cautery. Non-bleeding duodenal ulcers with no stigmata of bleeding.
- s/p EGD 08/28: Oozing duodenal ulcer s/p injection, clipping
- continue PPI Drip
- clears
- s/p 3 unit PRBCs; monitor Hb
Troponin elevation due to non-ischemic myocardial injury
- Chest pain resolved
- Troponin plateaued at 0.03
Bradycardia on admission due to Coreg
- continue BB - follow HR/Tele
Leukocytosis
- no infectious s/s
- UA clear
- await Bcx
Hyponatremia, resolved
COPD
Active smoking, nicotine dependence
- nicotine patch
Recent diagnosis of bronchiolitis and pt was started with doxycycline
- No resp symptom, No need to cont doxycycline
DVT ppx: SCDs given GI bleed
Code: Full
Anticipated Discharge: 24 - 48 hours
Subjective/Interval History
-
Date of Service: August 29, 2023
s/p EGD with clip placed
Objective Data
-
Vital Signs:
Vital Signs
Temp Pulse Resp BP Pulse Ox
98.2 F 70 16 117/57 94
08/29/23 15:03 08/29/23 15:03 08/29/23 15:03 08/29/23 15:03 08/29/23 15:03
I&O
08/28/23 08/29/23 08/30/23
06:59 06:59 06:59
Intake Total 1450 / 1450 1210 / 1210
Output Total 1200 / 1200 600 / 600
Balance 250 / 250 610 / 610
Physical Exam
-
General: No Apparent Distress
HEENT: Normocephalic and Atraumatic
Respiratory: Negative Wheezes or Rales
Cardiac: Regular Rhythm and S1/S2
GI: Soft and Nontender
Genito-urinary: No Costovertebral Tender
Neuro: AO x 3
Psych: Calm
Data Reviewed
-
Total Time Spent with Patient (in minutes): 42
Labs: Labs Reviewed by me
[2023-08-29] MEDS: SYMBICORT 160/4.5 MCG INHALER 2 PUFF INH (18:12)
[2023-08-29] MEDS: NORCO 5/325 1 TABLET PO (21:39)
[2023-08-29] MEDS: FLOMAX 0.400000000000000022 MG PO (21:39)
[2023-08-30 03:27] VITALS: BP 111/62; BMI 18.6
[2023-08-30 06:00] VITALS: BMI 18.6
[2023-08-30 07:05] VITALS: BP 101/44
--- NOTE | 2023-08-30 07:51 | W.PN.HOSP.TC ---
Today's Communication/Plan
-
continue PPI drip
monitor Hb
Assessment / Plan
Assessment / Plan
HPI: 82-year-old male with PMH COPD, A flutter, p/w CP, SOB and wet cough that started a few days ago.�
He saw cardiology 2 weeks ago and was diagnosed with new onset atrial flutter.�He had a Holter monitor that was just handed in 5 days ago.�He also recently had a lung CAT scan per his daughter.� However over the past several days they noted more
productive cough.� No measurable fever.� He is having trouble because of the cough.� They deny any leg swelling or significant weight gain.� No other complaints at this
Assessment:
SOB, mild chest pain, wet cough due to mild acute on chronic systolic heart failure
recent diagnosis of atrial flutter s/p Holter monitor
Elevated AST likely due to acute CHF, resolved
- s/p IV Lasix; now stopped
- continue BB - follow HR/Tele
- hold Eliquis due to GI bleed
- eventual consideration of cardioversion outpatient
Hypotension due acute blood loss anemia from acute GIB/hematemesis exacerbated by ASA/Eliquis
- s/p EGD 08/22: Large Blood clot in the second portion of the duodenum. Unable to remove the clot. No evidence of any active bleeding noted around the clot. No specimens collected.
- s/p EGD 08/24: Large duodenal ulcer with adherent clot. Clot was removed. oozing was noted around the edges. Injected. Treated with bipolar cautery. Non-bleeding duodenal ulcers with no stigmata of bleeding.
- s/p EGD 08/28: Oozing duodenal ulcer s/p injection, clipping
- continue PPI Drip as per GI
- regular
- s/p 3 unit PRBCs this admission; monitor Hb
Troponin elevation due to non-ischemic myocardial injury
- Chest pain resolved
- Troponin plateaued at 0.03
Bradycardia on admission due to Coreg
- continue BB - follow HR/Tele
Leukocytosis
- no infectious s/s
- UA clear
- Bcx negative
Hyponatremia, resolved
COPD
Active smoking, nicotine dependence
- nicotine patch
Recent diagnosis of bronchiolitis and pt was started with doxycycline
- No resp symptom, No need to cont doxycycline
DVT ppx: SCDs given GI bleed
Code: Full
Anticipated Discharge: Within 24 hours
Subjective/Interval History
-
Date of Service: August 30, 2023
Hb 8.7
dark stools but HD stable
Objective Data
-
Labs:
Laboratory Results
08/30/23
07:14
WBC Pending
Hgb Pending
Hct Pending
Plt Count Pending
Sodium Pending
Potassium Pending
Chloride Pending
Carbon Dioxide Pending
BUN Pending
Creatinine Pending
Glucose Pending
Calcium Pending
Vital Signs:
Vital Signs
Temp Pulse Resp BP Pulse Ox
97.5 F 69 16 111/62 96
08/30/23 03:27 08/30/23 03:27 08/30/23 03:27 08/30/23 03:27 08/30/23 03:27
I&O
08/29/23 08/30/23 08/31/23
06:59 06:59 06:59
Intake Total 1210 / 1210 960 / 960
Output Total 600 / 600 300 / 300
Balance 610 / 610 660 / 660
Physical Exam
-
General: No Apparent Distress
HEENT: Normocephalic and Atraumatic
Respiratory: Negative Wheezes or Rales
Cardiac: Regular Rhythm and S1/S2
GI: Soft
Genito-urinary: No Costovertebral Tender
Neuro: AO x 3
Hematologic / Lymphatic: No Lymphadenopathy
Psych: Calm
Data Reviewed
-
Total Time Spent with Patient (in minutes): 45
Labs: Labs Reviewed by me
[2023-08-30] MEDS: SYMBICORT 160/4.5 MCG INHALER 2 PUFF INH ×2 (08:00→19:35)
--- NOTE | 2023-08-30 08:00 | W.PN.CARDCBS ---
Today's Communication / Plan
-
Remains in Atrial flutter with mostly controlled HRs on review of telemetry. Some episodes of bradycardia mainly at night while sleeping. Less tachycardic on low dose Lopressor.
Remains without significant pauses on tele. He understands that he may require a pacemaker in the future to allow for better treatment of rapid rapids but for now he is tolerating low dose lopressor.
Cont to monitor H/H with GIBleed. Hb 7.6 on August 28 and pending August 29.
Repeat EGD 08/28: Oozing duodenal ulcer with pigmented material, injected and clip placed. Prior endo 08/24 with large duodenal ulcer and adherent clot.
Eliquis 2.5mg BID was started this admission, but has been on hold due to acute anemia and GIB. s/p 4 units PRBCs this admission.
Remains off his OP irbesartan due to hypotension
Impression / Plan
-
.
Primary [employer]: Dr. Hutson
Assessment:
Acute GIB, Hbg 9.9 -> 7.9; with hematemesis
Presentation with cough, SOB
COPD exacerbation
Atrial flutter, rate controlled of unclear duration, currently markedly [place]
CAD with prior remote 'silent' MIs, PTCA to mid RCA, DITCHER OPERATOR of distal RCA and LCx PCI in 2004
Ischemic cardiomyopathy with EF 45%
Hypertension
Dyslipidemia
Abdominal aortic aneurysm
Smoker
Chronic bronchitis
Renal insufficiency
Hyponatremia, mild
Lexiscan nuclear stress test 10/31/2021: Fixed defect in basal inferolateral, basal inferior, mid inferolateral, mid inferior segments consistent with infarction, EF 31%, no active significant coronary disease
ECHO 10/31/2021: EF 45%, basal to mid inferolateral hypokinesis, basal inferior akinesis, stage I diastolic dysfunction, mild MR, mildly dilated left atrium
ECHO 08/21/2023: EF 50 to 55%, possible basal inferior hypokinesis, moderate LVH, dilated RV, biatrial dilatation, MAC, mild to moderate MR, aortic sclerosis, mild TR, PAP 30 to 35 mmHg
CAM monitor 08/2023: 100% atrial flutter with variable conduction, average heart rate 69 bpm with range 31 to 140 bpm, 2 pauses with longest 2.7 seconds, 15 NSVT episodes with longest 3 beats, PVC burden 0.8%
Plan:
Remains in Atrial flutter with mostly controlled HRs on review of telemetry. Some episodes of bradycardia mainly at night while sleeping. Less tachycardic on low dose Lopressor.
Remains without significant pauses on tele. He understands that he may require a pacemaker in the future to allow for better treatment of rapid rapids but for now he is tolerating low dose lopressor.
Cont to monitor H/H with GIBleed. Hb 7.6 on August 28 and pending August 29.
Repeat EGD 08/28: Oozing duodenal ulcer with pigmented material, injected and clip placed. Prior endo 08/24 with large duodenal ulcer and adherent clot.
Eliquis 2.5mg BID was started this admission, but has been on hold due to acute anemia and GIB. s/p 4 units PRBCs this admission.
Remains off his OP irbesartan due to hypotension
For hyperlipidemia, continue atorvastatin 80 mg a day.
Continue to encourage tobacco cessation
HPI: Patient is an 82-year-old male with history of CAD including DITCHER OPERATOR of RCA and LCx PCI in 2004, ischemic cardiomyopathy with EF 45%, hypertension, abdominal aortic aneurysm, COPD/emphysema with ongoing smoking, renal insufficiency who was recently
diagnosed with atrial flutter, rate controlled of unclear duration.� He underwent 7-day cardiac catheterization technician which was completed, however results not yet available.� He was ordered echocardiogram, scheduled for 09/29/2023.� Head CT was also discussed due
to symptoms of vague fuzziness/hollow feeling in his head prior to Eliquis being started.� He was also recently seen by pulmonary and treated with a course of doxycycline for bronchitis.� He had recent CT of the chest with evidence of emphysema.� He
presents to emergency room due to complaints of cough and shortness of breath.� Per daughter he has felt washed out and tired over the last several days. Also with congestion and 'fullness' in his chest. No lower extremity edema or weight gain.� He
denies shortness of breath currently.� He states he chronically has some wheezing.� He appears somewhat forgetful, and was not personally able to tell me why he was in the emergency room.� Cardiology consulted as he was noted to be markedly
bradycardic in aflutter on telemetry.� On Coreg 12.5 mg twice daily as an outpatient.� Currently heart rate in the 60s on telemetry in ER.
Progress Note - [employer]
Subjective
Date of Service: August 30, 2023
Pt seen and examined. No cp or dyspnea.
Objective
Labs:
Labs
Hgb 7.6 g/dL (13.0-18.0) L 08/29/23 03:33
Hct 21.8 % (39.0-52.0) L 08/29/23 03:33
Plt Count 219 10^3/uL (130-400) 08/29/23 03:33
Sodium 137 mmol/L (135-145) 08/29/23 03:33
Potassium 3.9 mmol/L (3.5-5.1) 08/29/23 03:33
BUN 32 mg/dl (9-20) H 08/29/23 03:33
Creatinine 0.9 mg/dL (0.7-1.3) 08/29/23 03:33
Glucose 96 mg/dl (70-99) 08/29/23 03:33
Vital Signs and I&O:
Vital Signs
Temp Pulse Resp BP Pulse Ox
97.5 F 69 16 111/62 96
08/30/23 03:27 08/30/23 03:27 08/30/23 03:27 08/30/23 03:27 08/30/23 03:27
Vital Signs
Temp Pulse Resp BP Pulse Ox
97.5 F 69 16 111/62 96
08/30/23 03:27 08/30/23 03:27 08/30/23 03:27 08/30/23 03:27 08/30/23 03:27
Intake & Output
08/28/23 08/29/23 08/30/23 08/31/23
06:59 06:59 06:59 06:59
Intake Total 1450 / 1450 1210 / 1210 960 / 960
Output Total 1200 / 1200 600 / 600 300 / 300
Balance 250 / 250 610 / 610 660 / 660
Physical Exam
Physical Exam
General: No acute distress, AAOX3
Neck: Negative JVD
Heart: Irregularly irregular, Negative S3 positive S1/S2, Negative S4, No murmur
Lungs: CTA b/l, negative wheezes/rales/rhonchi
Abd: Positive BS, NT/ND, neg rebound/rigidity/guarding
Ext: Negative cyanosis/clubbing/edema
Neuro: nonfocal
[2023-08-30] MEDS: LIPITOR 80 MG PO (08:50)
[2023-08-30] MEDS: LOPRESSOR 12.5 MG PO (08:50)
[2023-08-30] MEDS: NICODERM TRANSDERMAL 14 MG TRANSDERM (08:51)
[2023-08-30 09:05] LABS: Hematocrit 25.8 % (39.0-52.0); Hemoglobin 8.7 g/dL (13.0-18.0); Mean Corp Hgb Conc. 33.7 g/dL (33.0-37.0); Mean Corpuscular Hgb 32.8 pg (27.0-31.0); Mean Corpuscular Volume 97.4 fL (80.0-94.0); Mean Platelet Volume 11.3 fL (7.4-10.4); Platelet Count 237 10^3/uL (130-400); Red Blood Cell Count 2.65 10^6/uL (4.70-6.10); Red Cell Dist. Width 16.2 % (11.5-14.5); White Blood Cell Count 10.5 10^3/uL (4.8-10.8)
[2023-08-30 09:32] LABS: Blood Urea Nitrogen 20 mg/dl (9-20); Calcium 8.5 mg/dl (8.4-10.2); Carbon Dioxide 27 mmol/L (22-30); Chloride 106 mmol/L (98-107); Estimated Creatinine Clearance 48 ml/min; Glucose 72 mg/dl (70-99); Potassium 4.1 mmol/L (3.5-5.1); Sodium 134 mmol/L (135-145); eGFR > 60.00
[2023-08-30] MEDS: PROTONIX 100 IV ×2 (09:59→18:10)
[2023-08-30] MEDS: NORCO 5/325 1 TABLET PO ×2 (11:03→21:31)
--- NOTE | 2023-08-30 11:31 | W.PN.GI.CBS2 ---
Today's Communication / Plan
-
regular diet
continue PPI ggt
Assessment / Plan
-
82 y/o male with hx of COPD,CAD, aflutter on qu admitted initially with CP/SOB/ cough had an episode of hematemesis. . Prior hx of PUD. patient has been complaining of intermittent abdominal pain.
EGD 08/23/2023-old blood in the stomach/duodenum. Large clot noted in the second part of the duodenum. Unable to displace. No active bleeding
EGD 08/26/23 - normal stomach , large duodenal ulcer with adherence clot. clot removed and oozing around edge. Treated with bipolar cautery non bleeding duodenal ulcer without bleeding
EGD 08/29/23 - slight oozing from center of ulcer. OVESCO clip placed successfully
- hematemesis - noted large duodenal ulcer
- abdominal pain -resolved
- elevated AST on admission - normalized now
- recent Aflutter on eliqu
- past hx of PUD
- hx of colon polyps
Impresson: DU with successful OVESCO
plan
1. regular diet
2. keep PPI ggt for today as difficult lesion with OVESCO
3. follow hgb
Subjective
Subjective
Date of Service: August 30, 2023
Pt feeling well, hgb stable after ovesco clip (s/p 1 unit with appropriate bump). No abdominal pain
Objective
Data Reviewed
Laboratory Data:
Laboratory Results
08/30/23 07:14
08/30/23 07:14
Laboratory Results
Magnesium 1.7 mg/dl (1.6-2.3) 08/28/23 04:46
Total Bilirubin 0.7 mg/dl (0.2-1.3) 08/22/23 06:54
AST 41 U/L (17-59) 08/22/23 06:54
ALT 22 U/L (0-50) 08/22/23 06:54
Alkaline Phosphatase 67 U/L (38-126) 08/22/23 06:54
Lipase 88 U/L (23-300) 08/22/23 06:54
Vital Signs and I&O:
Vital Signs
Temp Pulse Resp BP Pulse Ox
98 F 70 16 101/44 96
08/30/23 07:05 08/30/23 08:50 08/30/23 08:02 08/30/23 08:50 08/30/23 09:40
I&O
08/29/23 08/30/23 08/31/23
06:59 06:59 06:59
Intake Total 1210 / 1210 960 / 960 120 / 120
Output Total 600 / 600 300 / 300
Balance 610 / 610 660 / 660 120 / 120
Physical Exam
Physical Exam
GI: Soft, Non Distended and Non Tender
[2023-08-30 15:23] VITALS: BP 99/45
[2023-08-30 19:40] VITALS: BP 102/47
[2023-08-30] MEDS: LOPRESSOR PO (21:03)
[2023-08-30] MEDS: FLOMAX 0.400000000000000022 MG PO (21:32)
[2023-08-30 23:41] VITALS: BP 100/52
[2023-08-31] MEDS: PROTONIX 100 IV (02:33)
[2023-08-31 03:41] VITALS: BP 117/60
[2023-08-31 05:46] VITALS: BMI 18.9
[2023-08-31 07:30] VITALS: BP 122/67
[2023-08-31] MEDS: SYMBICORT 160/4.5 MCG INHALER 2 PUFF INH (07:39)
--- NOTE | 2023-08-31 08:02 | W.PN.CARDCBS ---
Addendum entered and electronically signed by Louie Conn DO 08/31/23 09:37:
.
Discussed with primary service. Reviewed GI recommendations. Pt has risk of stroke and bleeding. Discussed with primary service, given significant bleeding and risks, Eliquis to be resumed later this week to allow for healing. He understands his
stroke risk while Eliquis is held.
Outpt follow up to be arranged. Stable cv status.
Original Note:
Today's Communication / Plan
-
Remains in Atrial flutter with controlled HRs on review of telemetry. Some episodes of bradycardia mainly at night. Tachycardia improved on low dose Lopressor.
Remains without significant pauses on tele. He understands that he may require a pacemaker in the future to allow for better treatment of rapid rates but for now he is tolerating low dose lopressor.
Cont to monitor H/H with GIBleed. Hb 7.6 on August 28 and 8.7 August 29.
-Repeat EGD 08/28: Oozing duodenal ulcer with pigmented material, injected and clip placed. Prior endo 08/24 with large duodenal ulcer and adherent clot.
-Eliquis 2.5mg BID was started this admission, but has been on hold due to acute anemia and GIB. s/p 4 units PRBCs this admission.
-Resume Eliquis once ok with GI
Impression / Plan
-
.
Primary Transportation Attendant: Dr. Hutson
Assessment:
Acute GIB, with hematemesis
Presentation with cough, SOB
COPD exacerbation
Atrial flutter, rate controlled of unclear duration, with tachy-madison syndrome
CAD with prior remote 'silent' MIs, PTCA to mid RCA, PRODUCT DEVELOPMENT WORKER of distal RCA and LCx PCI in 2004
Ischemic cardiomyopathy with EF 45%
Hypertension
Dyslipidemia
Abdominal aortic aneurysm
Smoker
Chronic bronchitis
Renal insufficiency
Hyponatremia, mild
Lexiscan nuclear stress test 10/31/2021: Fixed defect in basal inferolateral, basal inferior, mid inferolateral, mid inferior segments consistent with infarction, EF 31%, no active significant coronary disease
ECHO 10/31/2021: EF 45%, basal to mid inferolateral hypokinesis, basal inferior akinesis, stage I diastolic dysfunction, mild MR, mildly dilated left atrium
ECHO 08/21/2023: EF 50 to 55%, possible basal inferior hypokinesis, moderate LVH, dilated RV, biatrial dilatation, MAC, mild to moderate MR, aortic sclerosis, mild TR, PAP 30 to 35 mmHg
CAM monitor 08/2023: 100% atrial flutter with variable conduction, average heart rate 69 bpm with range 31 to 140 bpm, 2 pauses with longest 2.7 seconds, 15 NSVT episodes with longest 3 beats, PVC burden 0.8%
Plan:
Remains in Atrial flutter with controlled HRs on review of telemetry. Some episodes of bradycardia mainly at night. Tachycardia improved on low dose Lopressor.
Remains without significant pauses on tele. He understands that he may require a pacemaker in the future to allow for better treatment of rapid rates but for now he is tolerating low dose lopressor.
Cont to monitor H/H with GIBleed. Hb 7.6 on August 28 and 8.7 August 29.
-Repeat EGD 08/28: Oozing duodenal ulcer with pigmented material, injected and clip placed. Prior endo 08/24 with large duodenal ulcer and adherent clot.
-Eliquis 2.5mg BID was started this admission, but has been on hold due to acute anemia and GIB. s/p 4 units PRBCs this admission.
-Resume Eliquis once ok with GI
Remains off his OP irbesartan due to hypotension
For hyperlipidemia, continue atorvastatin 80 mg a day.
Continue to encourage tobacco cessation
HPI: Patient is an 82-year-old male with history of CAD including PRODUCT DEVELOPMENT WORKER of RCA and LCx PCI in 2004, ischemic cardiomyopathy with EF 45%, hypertension, abdominal aortic aneurysm, COPD/emphysema with ongoing smoking, renal insufficiency who was recently
diagnosed with atrial flutter, rate controlled of unclear duration.� He underwent 7-day youth nutritional monitor which was completed, however results not yet available.� He was ordered echocardiogram, scheduled for 09/29/2023.� Head CT was also discussed due
to symptoms of vague fuzziness/hollow feeling in his head prior to Eliquis being started.� He was also recently seen by pulmonary and treated with a course of doxycycline for bronchitis.� He had recent CT of the chest with evidence of emphysema.� He
presents to emergency room due to complaints of cough and shortness of breath.� Per daughter he has felt washed out and tired over the last several days. Also with congestion and 'fullness' in his chest. No lower extremity edema or weight gain.� He
denies shortness of breath currently.� He states he chronically has some wheezing.� He appears somewhat forgetful, and was not personally able to tell me why he was in the emergency room.� Cardiology consulted as he was noted to be markedly
bradycardic in aflutter on telemetry.� On Coreg 12.5 mg twice daily as an outpatient.� Currently heart rate in the 60s on telemetry in ER.
Progress Note - Transportation Attendant
Subjective
Date of Service: August 31, 2023
Pt seen and examined. No cp or dyspnea
Objective
Labs:
08/30/23 07:14
Labs
Hgb 8.7 g/dL (13.0-18.0) L 08/30/23 07:14
Hct 25.8 % (39.0-52.0) L 08/30/23 07:14
Plt Count 237 10^3/uL (130-400) 08/30/23 07:14
Sodium 134 mmol/L (135-145) L 08/30/23 07:14
Potassium 4.1 mmol/L (3.5-5.1) 08/30/23 07:14
BUN 20 mg/dl (9-20) 08/30/23 07:14
Creatinine 0.9 mg/dL (0.7-1.3) 08/30/23 07:14
Glucose 72 mg/dl (70-99) 08/30/23 07:14
Vital Signs and I&O:
Vital Signs
Temp Pulse Resp BP Pulse Ox
98.1 F 82 16 117/60 96
08/31/23 03:41 08/31/23 07:41 08/31/23 07:41 08/31/23 03:41 08/31/23 07:41
Vital Signs
Temp Pulse Resp BP Pulse Ox
98.1 F 82 16 117/60 96
08/31/23 03:41 08/31/23 07:41 08/31/23 07:41 08/31/23 03:41 08/31/23 07:41
Intake & Output
08/29/23 08/30/23 08/31/23 09/01/23
06:59 06:59 06:59 06:59
Intake Total 1210 / 1210 960 / 960 1320 / 1320
Output Total 600 / 600 300 / 300 200 / 200
Balance 610 / 610 660 / 660 1120 / 1120
Physical Exam
Physical Exam
General: No acute distress, AAOX3
Neck: Negative JVD
Heart: Irregularly irregular, Negative S3 positive S1/S2, Negative S4, No murmur
Lungs: CTA b/l, negative wheezes/rales/rhonchi
Abd: Positive BS, NT/ND, neg rebound/rigidity/guarding
Ext: Negative cyanosis/clubbing/edema
Neuro: nonfocal
[2023-08-31] MEDS: LIPITOR 80 MG PO (08:06)
[2023-08-31] MEDS: NORCO 5/325 1 TABLET PO (08:06)
[2023-08-31] MEDS: NICODERM TRANSDERMAL 14 MG TRANSDERM (08:07)
[2023-08-31] MEDS: LOPRESSOR 12.5 MG PO (08:09)
[2023-08-31 08:17] LABS: Hematocrit 24.8 % (39.0-52.0); Hemoglobin 8.4 g/dL (13.0-18.0); Mean Corp Hgb Conc. 33.9 g/dL (33.0-37.0); Mean Corpuscular Hgb 32.8 pg (27.0-31.0); Mean Corpuscular Volume 96.9 fL (80.0-94.0); Mean Platelet Volume 11.1 fL (7.4-10.4); Platelet Count 267 10^3/uL (130-400); Red Blood Cell Count 2.56 10^6/uL (4.70-6.10); Red Cell Dist. Width 16.2 % (11.5-14.5)
--- NOTE | 2023-08-31 08:25 | W.PN.GI.CBS2 ---
Today's Communication / Plan
-
switch PPI to bid
Assessment / Plan
-
82 y/o male with hx of COPD,CAD, aflutter on Eliquis admitted initially with CP/SOB/ cough had an episode of hematemesis. . Prior hx of PUD. patient has been complaining of intermittent abdominal pain.
EGD 08/23/2023-old blood in the stomach/duodenum. Large clot noted in the second part of the duodenum. Unable to displace. No active bleeding
EGD 08/26/23 - normal stomach , large duodenal ulcer with adherence clot. clot removed and oozing around edge. Treated with bipolar cautery non bleeding duodenal ulcer without bleeding
EGD 08/29/23 - slight oozing from center of ulcer. OVESCO clip placed successfully
- hematemesis - noted large duodenal ulcer
- abdominal pain -resolved
- elevated AST on admission - normalized now
- recent Aflutter on eliquis
- past hx of PUD
- hx of colon polyps
Impresson: DU with successful OVESCO
plan
1. regular diet
2. can change PPI to IV q 12
3. follow hgb
4. if ok tomorrow no more intervention
5. if needs eliquis would ideally wait minimum of another 48 hrs but ideally until next friday if possible before resuming
Subjective
Subjective
Date of Service: August 31, 2023
Eat fine yesterday, no bleeding or abd pain
Objective
Data Reviewed
Laboratory Data:
Laboratory Results
08/31/23 07:15
08/30/23 07:14
Laboratory Results
Magnesium 1.7 mg/dl (1.6-2.3) 08/28/23 04:46
Total Bilirubin 0.7 mg/dl (0.2-1.3) 08/22/23 06:54
AST 41 U/L (17-59) 08/22/23 06:54
ALT 22 U/L (0-50) 08/22/23 06:54
Alkaline Phosphatase 67 U/L (38-126) 08/22/23 06:54
Lipase 88 U/L (23-300) 08/22/23 06:54
Vital Signs and I&O:
Vital Signs
Temp Pulse Resp BP Pulse Ox
98.2 F 67 16 122/67 96
08/31/23 07:30 08/31/23 08:09 08/31/23 07:41 08/31/23 08:09 08/31/23 07:41
I&O
08/30/23 08/31/23 09/01/23
06:59 06:59 06:59
Intake Total 960 / 960 1320 / 1320
Output Total 300 / 300 200 / 200
Balance 660 / 660 1120 / 1120
Physical Exam
Physical Exam
GI: Soft, Non Distended and Non Tender
Neuro: Non Focal
[2023-08-31 12:22] VITALS: BP 96/46
--- NOTE | 2023-08-31 12:48 | W.PN.HOSP.TC ---
Today's Communication/Plan
-
dc home VN
Assessment / Plan
Assessment / Plan
HPI: 82-year-old male with PMH COPD, A flutter, p/w CP, SOB and wet cough that started a few days ago.�
He saw cardiology 2 weeks ago and was diagnosed with new onset atrial flutter.�He had a Holter monitor that was just handed in 5 days ago.�He also recently had a lung CAT scan per his daughter.� However over the past several days they noted more
productive cough.� No measurable fever.� He is having trouble because of the cough.� They deny any leg swelling or significant weight gain.� No other complaints at this
Assessment:
SOB, mild chest pain, wet cough due to mild acute on chronic systolic heart failure
recent diagnosis of atrial flutter s/p Holter monitor
Elevated AST likely due to acute CHF, resolved
- s/p IV Lasix; now stopped
- continue BB - follow HR/Tele
- hold Eliquis due to GI bleed - start Friday
- eventual consideration of cardioversion outpatient
Hypotension due acute blood loss anemia from acute GIB/hematemesis exacerbated by ASA/Eliquis
- s/p EGD 08/22: Large Blood clot in the second portion of the duodenum. Unable to remove the clot. No evidence of any active bleeding noted around the clot. No specimens collected.
- s/p EGD 08/24: Large duodenal ulcer with adherent clot. Clot was removed. oozing was noted around the edges. Injected. Treated with bipolar cautery. Non-bleeding duodenal ulcers with no stigmata of bleeding.
- s/p EGD 08/28: Oozing duodenal ulcer s/p injection, clipping
- dc on PPI BID x 3 months
- regular diet
- s/p 3 unit PRBCs this admission; monitor Hb
Troponin elevation due to non-ischemic myocardial injury
- Chest pain resolved
- Troponin plateaued at 0.03
Bradycardia on admission due to Coreg
- continue BB - follow HR/Tele
Leukocytosis
- no infectious s/s
- UA clear
- Bcx negative
Hyponatremia, resolved
COPD
Active smoking, nicotine dependence
- nicotine patch
Recent diagnosis of bronchiolitis and pt was started with doxycycline
- No resp symptom, No need to cont doxycycline
DVT ppx: SCDs given GI bleed
Code: Full
More than 30 minutes spent in discharge including
Final examination of the patient
Summarizing hospital stay
Instructions for continuing care to all relevant caregivers
Preparation of discharge records, prescriptions, and referral forms
Total time spent (in minutes): 41
Anticipated Discharge: Today
Subjective/Interval History
-
Date of Service: August 31, 2023
dark stools persist likely related to prior bleed; Hb stable
no dizziness
Objective Data
-
Labs:
Laboratory Results
08/31/23
07:15
WBC 12.0 H
Hgb 8.4 L
Hct 24.8 L
Plt Count 267
Vital Signs:
Vital Signs
Temp Pulse Resp BP Pulse Ox
98.1 F 47 14 96/46 96
08/31/23 12:22 08/31/23 12:22 08/31/23 12:22 08/31/23 12:22 08/31/23 12:22
I&O
08/30/23 08/31/23 09/01/23
06:59 06:59 06:59
Intake Total 960 / 960 1320 / 1320
Output Total 300 / 300 200 / 200
Balance 660 / 660 1120 / 1120
Physical Exam
-
General: No Apparent Distress
HEENT: Normocephalic and Atraumatic
Respiratory: Negative Wheezes or Rales
Cardiac: Regular Rhythm and S1/S2
GI: Soft
Genito-urinary: No Costovertebral Tender
Musculoskeletal: No Edema
Neuro: AO x 3
Hematologic / Lymphatic: No Lymphadenopathy
Psych: Calm
Data Reviewed
-
Total Time Spent with Patient (in minutes): 41
Labs: Labs Reviewed by me
[2023-08-31 13:03] VITALS: BP 103/46
--- NOTE | 2023-08-31 13:19 | W.DS.TRANS ---
DC Summary - Sanitation Manager
-
Discharge Instructions:
Sleep Apnea Risk Intermediate
Discharge Diagnosis/Procedures new Aflutter, duodenal ulcer with GI (3 EGDs
performed)
Diet Low Cholesterol
Activity As tolerated
Bathing Restrictions None
Blood Work CBC on Friday - RX given
Other Services VN
Instructions:
Stand-Alone Forms:
Changes to Home Medications: Yes
Discharge Medications:
DC Medications w/original date entered in [facility]
atorvastatin 80 mg tablet (Lipitor) 80 mg PO DAILY High Cholesterol 05/17/09
albuterol sulfate 2.5 mg/3 mL (0.083 %) solution for nebulization 2.5 mg inhalation R TID Lung/Breathing Issues 08/20/23
albuterol sulfate 90 mcg/actuation aerosol inhaler 1 puff inhalation R Q4HPRN PRN sob 08/20/23
fluticasone fur. 200 mcg-umeclid 62.5 mcg-vilant 25 mcg inhalat.powder (Trelegy Ellipta) 1 inh inhalation R DAILY Lung/Breathing Issues 08/20/23
guaifenesin 600 mg tablet, extended release 12 hr (Mucinex) 600 mg PO QPM congestion/cough 08/20/23
hydrocodone 10 mg-acetaminophen 325 mg tablet 1 tab PO TIDPRN PRN severe pain 08/20/23
tamsulosin 0.4 mg capsule 0.4 mg PO HS Urinary Issue 08/20/23
apixaban 5 mg tablet (Eliquis) 5 mg PO BID #60 tabs 08/31/23
metoprolol succinate 25 mg tablet,extended release 24 hr (Toprol XL) 12.5 mg (1/2 x 25 mg) PO DAILY #30 tabs 08/31/23
pantoprazole 40 mg tablet,delayed release (Protonix) 40 mg PO BID #60 tabs 08/31/23
Home Medication Changes
irbesartan and coreg stopped
Pending Results: No
Total time spent discharging patient (in min): 42
--- NOTE | 2023-08-31 14:02 | CM ---
Patient has been medically cleared for discharge to home with [facility] and PT services. Daughter will transport home.
--- NOTE | 2023-09-01 10:33 | W.HF.CON ---
Heart Failure
- LV Function
Left ventricular function study result: LV Ejection fraction >40%
Ejection Fraction Percentage: 50-55
- ARNI
Patient already on ARNI: No
Heart Failure ARNI Not Indicated: LV Ejection Fraction >/= 40%
- ACEI/ARB
Patient already on ACEI/ARB: No
Heart Failure ACEI/ARB Not Indicated: LV Ejection Fraction > 40%
- Beta Danny
Patient already on Evidence Based Beta Danny: Yes
- Mineralocorticord Receptor Antagonist
Patient already on MRA: No
Heart Failure MRA Not Indicated: LV Ejection Fraction > 40%
- SGLT-2 Inhibitor
Patient already on SGLT-2 Inhibitor: No
Heart Failure SGLT-2 Inhibitor Not Indicated: LV Ejection Fraction >40%
- Afib Anticoagulation
Patient already on Anticoagulation for Afib: No (restarting 09/05/23)
Heart Failure Afib Anticoagulation Contraindication: GI Ulcers / Bleeding
- NYHA CHF Classification
NYHA CHF Classification Level: Class III - Symptoms w/ min exertion, interferes w/ nml daily activity (anemia)
- ACC/AHA Stage
ACC/AHA Stage: Stage C: Symptomatic Heart Failure
== END 2023-08-31 14:34 | disposition home health service (06) | DRG 377 ==
LOC: 2 NORTH 13:52
PROVIDERS: Internal Medicine; Physician Assistant; Registered Nurse; ADMITTING PHYSICIAN Internal Medicine; ATTENDING PHYSICIAN Internal Medicine; CONSULT PHYSICIAN Internal Medicine Cardiovascular Disease; CONSULT PHYSICIAN Internal Medicine Gastroenterology; EMERGENCY PHYSICIAN Emergency Medicine; FAMILY PHYSICIAN Family Medicine
PROC: 0DJ08ZZ Inspection of Upper Intestinal Tract, Via Natural or Artificial Opening Endoscopic (ICD-10-PCS; 2023-08-23)
PROC: 30233N1 Transfusion of Nonautologous Red Blood Cells into Peripheral Vein, Percutaneous Approach (ICD-10-PCS; 2023-08-24)
PROC: 3E0G8GC Introduction of Other Therapeutic Substance into Upper GI, Via Natural or Artificial Opening Endoscopic (ICD-10-PCS; 2023-08-25)
PROC: 0DC98ZZ Extirpation of Matter from Duodenum, Via Natural or Artificial Opening Endoscopic (ICD-10-PCS; 2023-08-25)
PROC: 0W3P8ZZ Control Bleeding in Gastrointestinal Tract, Via Natural or Artificial Opening Endoscopic (ICD-10-PCS; 2023-08-29)
DX: K26.4 Chronic or unspecified duodenal ulcer with hemorrhage (principal); I50.23 Acute on chronic systolic (congestive) heart failure; I48.92 Unspecified atrial flutter; E87.1 Hypo-osmolality and hyponatremia; J21.9 Acute bronchiolitis, unspecified; D62 Acute posthemorrhagic anemia; D68.32 Hemorrhagic disorder due to extrinsic circulating anticoagulants; I5A Non-ischemic myocardial injury (non-traumatic); I11.0 Hypertensive heart disease with heart failure; J43.9 Emphysema, unspecified; I25.10 Atherosclerotic heart disease of native coronary artery without angina pectoris; F17.210 Nicotine dependence, cigarettes, uncomplicated; I71.40 Abdominal aortic aneurysm, without rupture, unspecified; I95.9 Hypotension, unspecified; K44.9 Diaphragmatic hernia without obstruction or gangrene; I25.5 Ischemic cardiomyopathy; K29.70 Gastritis, unspecified, without bleeding; I25.2 Old myocardial infarction; Z95.5 Presence of coronary angioplasty implant and graft; Z11.52 Encounter for screening for COVID-19; Z79.82 Long term (current) use of aspirin; Z91.030 Bee allergy status; Z79.51 Long term (current) use of inhaled steroids; Z87.19 Personal history of other diseases of the digestive system
CPT/HCPCS: 71046; 71275; 80048; 80053; 81003; 82248; 83690; 83735; 83880; 84145; 84443; 84484; 85014; 85018; 85025; 85027; 86850; 86900; 86901; 86920; 87040; 87502; 87811; 93005; 93306; 94640; 97116; 97163; 97167; 97530; 99285; 99406; P9016; Q9967

== ENCOUNTER 2023-10-28 21:49 | Inpatient (IN) | payer OTHER, SELFPAY ==
[2023-10-28 18:39] VITALS: BP 158/110
--- NOTE | 2023-10-28 19:17 | ED.GENMED ---
History of Present Illness
General
Chief Complaint: Breathing Problem
Source: patient and family
Exam Limitations: none
Time Seen by Provider: 10/28/23 19:07
Nursing documentation reviewed up to this point in time: agreed with
Travel History
Have you had any contact with someone who has COVID-19?: No
Do you have any symptoms of coronavirus? Fever > 100 degrees, chills, cough, shortness of breath, sore throat, loss of taste or smell, muscle aches, or headache?: No
History of Present Illness
History of Present Illness:
83-year-old male COPD continues to smoke heart failure A-fib not anticoagulated due to GI bleeding presents with cough congestion productive sputum increasing his nebulizer frequently saw pulmonary a week or 2 ago told everything was good had
briefly been started on Eliquis and held by cardiology recently scheduled to see them in a week or 2 for reconsideration
Past History
Past History
ED Past Medical History: Arrthythmia, COPD, HTN, [place] and Other (GI bleed, coronary artery disease with [place] and stent, COPD, hypertension)
Social History
Tobacco: Smoker
Alcohol: None
Drug: None
Personal:
Living: with family
Employment: Retired
Family History
Family History: CAD
Review of Systems
Review of Systems
All Other Systems: Not applicable
Constitutional: Reports chills; Denies fever or fatigue
Respiratory: Reports cough and trouble breathing; Denies hemoptysis
Cardiac: Reports no symptoms
ABD/GI: Reports no symptoms; Denies bloody stools or black stools
: Reports no symptoms
Musculoskeletal: Reports no symptoms
Skin: Reports no symptoms
Neurological: Reports weakness
Endocrine: Reports no symptoms
Hematologic/Lymphatic: Reports no symptoms
Psychiatric: Reports no symptoms
Phy Exam
Physical Exam
Physical Exam:
Physical Exam
General: Dyspneic appearing male
Neck: JVD
Heart: Rapid and irregular
Lungs: Wheeze rhonchi
Abdomen: Nontender
Neuro: alert and oriented. no focal neurological deficits
Skin: no rash
Psychiatric: well kept. interactive and cooperative
Extremities: no edema.
Scores
Heart Failure Risk
Heart Failure Risk Score: Yes
History of Stroke or TIA: No
History of intubation for respiratory distress: No
Heart rate on ED arrival >/= 110: Yes
SaO2 <90% on arrival on room air: Yes
HR >/=110 during 3min walk test (or too ill to perform test): Yes
ECG has acute ischemic changes: No
Urea >/=12mmol/L (BUN 33.6mg/dL): No
Serum CO2>/=35mmol/L: No
Troponin I or T elevated to [place] Level (0.4mg/dL): No
NT-proBNP >/=5,000ng/L (5,000pg/ml): No
HF Risk Score: 3
Admission Status: HIGH RISK 15.9% Consider SNF treatment or admission to hospital
Course
Orders/Labs/Results
Orders:
Orders
10/28/23 18:42
Electrocardiogram (*1) Urgent
Reason for Study: Atrial Fibrillation
Electrocardiogram (*1) Urgent
Reason for Study: Atrial Fibrillation
10/28/23 18:43
EKG- Treatment ONCE
10/28/23 19:16
IV Insert/Care/Rem.- Treatment PRN
Dexamethasone Sod Phosphate [Decadron] 10 mg IV NOW STA
Ipratropium/Albuterol Sulfate [Duoneb] 3 ml INH R NOW STA
CR Chest Portable - 1 View Urgent
Comment:
Reason For Exam: sob
Reason Study Needs to be Portable: Unable to Transport
10/28/23 19:32
Complete Blood Count/With Diff Urgent
Comprehensive Metabolic Panel Urgent
NT-proBNP Urgent
Troponin I Urgent
Blood Culture Q30M
DEA Source: Blood/Venous
Specimen Description:
10/28/23 19:33
COVID-19 Antigen Urgent
Source: Nasal Swab
Influenza A+B Rapid Molecular Urgent
DEA Source: Nasal Swab
Specimen Description:
10/28/23 19:56
Lactic Acid Q4H
Comment: CANCEL 2nd LACTIC ACID IF 1st LACTIC ACID IS LESS THAN 2
Blood Culture Q30M
DEA Source: Blood/Venous
Specimen Description:
10/28/23 23:30
Lactic Acid Q4H
Comment: CANCEL 2nd LACTIC ACID IF 1st LACTIC ACID IS LESS THAN 2
Abnormal Lab Results
10/28/23 10/28/23
19:32 19:56
RBC 3.91 L 10^6/uL
(4.70-6.10)
Hgb 12.5 L g/dL
(13.0-18.0)
MCV 102.8 H fL
(80.0-94.0)
MCH 32.0 H pg
(27.0-31.0)
MCHC 31.1 L g/dL
(33.0-37.0)
RDW 17.6 H %
(11.5-14.5)
MPV 11.3 H fL
(7.4-10.4)
Absolute Lymphs (auto) 1.0 L 10^3/uL
(1.2-3.4)
Immature Gran % 0.6 H %
(0-0.5)
Lymphocytes % 14.0 L %
(20.5-51.1)
Carbon Dioxide 31 H mmol/L
(22-30)
Glucose 104 H mg/dl
(70-99)
Lactic Acid 2.1 H mmol/L
(0.7-2.0)
Troponin I 0.042 H* ng/ml
10/28/23 19:32
10/28/23 19:32
Vital Signs
Initial and Last Documented VS:
Initial Vital Signs
Temp Pulse Resp BP Pulse Ox
97.5 F 130 20 158/110 90
10/28/23 18:39 10/28/23 18:39 10/28/23 18:39 10/28/23 18:39 10/28/23 18:39
Last Documented Vital Signs
Temp Pulse Resp BP Pulse Ox
97.5 F 94 18 141/120 95
10/28/23 18:39 10/28/23 20:15 10/28/23 20:15 10/28/23 20:00 10/28/23 20:15
MDM/Problems Addressed
Differential Diagnosis Includes:
COPD pneumonia heart failure PE
MDM/Problems Addressed:
Shortness of breath
Chronic conditions affecting care:
COPD heart failure arrhythmia
Acute Exacerbation and/or Progression of Chronic Illness: Cardiomyopathy, Arrhythmia and COPD
*Radiology
Radiology exam reviewed: preliminary read by ED provider
*Pulse Oximetry
Patient hypoxic: yes
Comment: 89
*EKG
Interpreted by ED Provider?: Yes
Interpretation: abnormal
Comparison EKG: no comparison EKG present
Heart Rate: 108
Rate: tachycardiac
Rhythm: a-fib
Ischemia: non-specific ST changes
*Basket Hand Braider Interpretation
Rate: tachycardiac
Interpretation: abnormal
Rhythm: a-fib
*Critical Care Note
Total Time (30-74mins, 75-104mins- exclusive of procedures): 15
Update Note
Update Note:
Update chest x-ray noted, no fever no white count proBNP up a bit we will try dose of diuretic, will require admission due to severity of illness and hypoxia
ED Attending Note
-
Portions of this chart may have been created with voice recognition software.� Occasional wrong word or��sound alike� substitutions may have occurred due to the inherent limitations of voice recognition software.
Discharge Plan
Departure
Patient Disposition: Admit
Date of Disposition: 10/28/23
Time of Disposition: 20:52
Presentation/result/management discussed w/ accepting MD/DO: Hospitalist
Patient with high blood pressure during this ER visit?: Yes
Covid-19: Not Applicable
Discharge Problem:
COPD exacerbation, Atrial flutter, Acute systolic (congestive) heart failure, COPD (chronic obstructive pulmonary disease), Pleural effusion
Prescriptions:
No Action
atorvastatin [Lipitor] 80 MG tablet
80 mg PO DAILY
albuterol sulfate 2.5 mg /3 mL (0.083 %) Solution For Nebulization
2.5 mg INHALATION R TID
hydrocodone-acetaminophen 10-325 mg Tablet
1 tab PO TIDPRN PRN (Reason: severe pain)
Patient Comments:
08/20/2023, pt. filled this med. on 08/14/2023 for 90 tablets per PDMP.
tamsulosin 0.4 mg Capsule
0.4 mg PO HS
albuterol sulfate 90 mcg/actuation Hfa Aerosol Inhaler
1 puff INHALATION R Q4HPRN PRN (Reason: sob)
guaifenesin [Mucinex] 600 mg Tablet Extended Release 12hr
600 mg PO QPM
Trelegy Ellipta 200-62.5-25 mcg Blister With Device
1 inh INHALATION R DAILY
metoprolol succinate [Toprol XL] 25 mg tablet extended release 24 hr
12.5 mg PO DAILY Qty: 30 0RF
pantoprazole [Protonix] 40 mg tablet,delayed release (DR/EC)
40 mg PO BID Qty: 60 2RF
Eliquis 5 mg tablet
5 mg PO BID Qty: 60 0RF
Referrals:
Jessica Madrigal PA [Family Provider] -
Interventions
Interventions:
*Risk Screen - Suicide Last Done: 10/28/23 19:20
*General Assessment Last Done: 10/28/23 19:20
*Neglect/Abuse Screening Last Done: 10/28/23 19:20
ED- Fall Risk Assessment Last Done: 10/28/23 19:20
*ED COVID-19 Vaccine History Last Done: 10/28/23 19:20
ED- Cardiac Assessment Last Done: 10/28/23 19:20
ED- Pulmonary Assessment Last Done: 10/28/23 19:20
Discharge Date and Time
Print Language: INDONESIAN
[2023-10-28 19:23] VITALS: BP 176/85
[2023-10-28] MEDS: DUONEB 3 ML INH (19:27)
[2023-10-28] MEDS: DECADRON 10 MG IV (19:27)
[2023-10-28 19:51] LABS: % Basophils 0.7 % (0-2); % Eosinophils 5.8 % (0-6); % Immature Granulocytes 0.6 % (0-0.5); % Monocytes 8.6 % (1.7-9.3); % Neutrophils 70.3 % (42.2-75.2); Absolute Basophils 0.1 10^3/uL (0-0.2); Absolute Eosinophils 0.4 10^3/uL (0-0.7); Absolute Monocytes 0.6 10^3/uL (0.1-0.6); Absolute Neutrophils 5.1 10^3/uL (1.4-6.5); Hematocrit 40.2 % (39.0-52.0); Hemoglobin 12.5 g/dL (13.0-18.0); Mean Corp Hgb Conc. 31.1 g/dL (33.0-37.0); Mean Corpuscular Volume 102.8 fL (80.0-94.0); Mean Platelet Volume 11.3 fL (7.4-10.4); Nucleated Red Blood Cells % 0 % (-); Platelet Count 214 10^3/uL (130-400); Red Blood Cell Count 3.91 10^6/uL (4.70-6.10); Red Cell Dist. Width 17.6 % (11.5-14.5); White Blood Cell Count 7.2 10^3/uL (4.8-10.8)
[2023-10-28 19:58] VITALS: BMI 22.5
[2023-10-28 20:00] VITALS: BP 141/120
[2023-10-28 20:00] LABS: ALT (SGPT) 24 U/L (0-50); AST (SGOT) 39 U/L (17-59); Albumin 4.4 g/dl (3.5-5.0); Alkaline Phosphatase 119 U/L (38-126); Blood Urea Nitrogen 17 mg/dl (9-20); Calcium 10.1 mg/dl (8.4-10.2); Carbon Dioxide 31 mmol/L (22-30); Chloride 101 mmol/L (98-107); Estimated Creatinine Clearance 41 ml/min; Glucose 104 mg/dl (70-99); Potassium 4.7 mmol/L (3.5-5.1); Sodium 141 mmol/L (135-145); Total Bilirubin 1.1 mg/dl (0.2-1.3); Total Protein 7.2 g/dl (6.3-8.2); eGFR > 60.00
[2023-10-28 20:01] LABS: COVID-19 Antigen Negative (Negative)
[2023-10-28 20:16] LABS: NT-proBNP 2060 pg/ml; Troponin I 0.042 ng/ml
[2023-10-28 20:16] LABS: Lactic Acid 2.1 mmol/L (0.7-2.0)
[2023-10-28 21:00] VITALS: BP 131/79
[2023-10-28] MEDS: LASIX 40 MG IV (21:07)
--- NOTE | 2023-10-28 21:07 | HPS.HSE ---
Family Physician
-
Family Physician: Jessica Madrigal
Chief Complaint
-
Cough, congestion, shortness of breath
History of Present Illness
83-year-old male complaining of cough, congestion with productive knight-colored sputum and increased use of his nebulizer for the past week along with wheezing. He reports seeing pulmonary approximately [address] Kevin for routine visit that
was fine. He is still actively smoking 1 pack/day. He denies fever, chills, sore throat, chest pain, palpitations, abdominal pain, nausea, vomiting, diarrhea, urinary symptoms. He was briefly started on Eliquis for A-fib then held by cardiology
due to GI bleeding was advised to follow-up in 1 to 2 weeks for reconsideration. He has an appointment with [facility] cardiology on Friday, November 02 . He had follow-up with GI and is scheduled for outpatient capsule Endo December 2023. He has history of
atrial flutter COPD, active smoker, duodenal ulcer bleeding requiring clipping times 03 August 2023, CAD/[place]/stent, HTN, BPH.
Medical History
Past Medical History
Past Medical History: Reports Other
Additional Past Medical History:
COPD
Nicotine abuse
A flutter Dx August 2023
AAA
Duodenal ulcer bleed requiring clipping August 2023
CAD/[place]/stent
Chronic back pain/DJD on chronic opiates
Past Surgical History: Reports Other
Additional Past Surgical History:
cardiac stent 2004
Social History
Tobacco: Smoker (1 pack/day x 71 years)
Alcohol: None
Personal: Single
Living: With Family (Lives with a friend)
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
Family History
Family History: Other (Father age 64 alcohol abuse mother age 70 possible [place], 3 sisters he is unsure)
Allergies / Home Medications
Allergies reflects when Allergies were last updated in [facility].
Home Medications with original date entered in [facility]
Allergy/Medication List:
Allergies
Allergy/AdvReac Type Severity Reaction Status Date / Time
venom-honey bee Allergy [id number] Verified 10/28/23 18:39
CLOSES
Home Medications
atorvastatin 80 mg tablet (Lipitor) 80 mg PO DAILY High Cholesterol 05/17/09
albuterol sulfate 2.5 mg/3 mL (0.083 %) solution for nebulization 2.5 mg inhalation R TID Lung/Breathing Issues 08/20/23
albuterol sulfate 90 mcg/actuation aerosol inhaler 2 puff inhalation R Q4HPRN PRN sob 08/20/23
fluticasone fur. 200 mcg-umeclid 62.5 mcg-vilant 25 mcg inhalat.powder (Trelegy Ellipta) 1 inh inhalation R DAILY Lung/Breathing Issues 08/20/23
guaifenesin 600 mg tablet, extended release 12 hr (Mucinex) 600 mg PO BID congestion/cough 08/20/23
hydrocodone 10 mg-acetaminophen 325 mg tablet 1 tab PO TIDPRN PRN chronic back pain 08/20/23
tamsulosin 0.4 mg capsule 0.4 mg PO HS Urinary Issue 08/20/23
metoprolol succinate 25 mg tablet,extended release 24 hr (Toprol XL) 12.5 mg (1/2 x 25 mg) PO DAILY #30 tabs 08/31/23
pantoprazole 40 mg tablet,delayed release (Protonix) 40 mg PO BID #60 tabs 08/31/23
ferrous sulfate 325 mg (65 mg iron) tablet (FeroSul) 325 mg PO DAILY 10/28/23
irbesartan 150 mg tablet 150 mg PO DAILY 10/28/23
lyputzou-yhc-MK 0.4 mg-calcium 162 mg-iron 18 ti-mqpgwpm-swfelm tablet 1 tab PO DAILY 10/28/23
Review of Systems
-
History Source: Patient and Family (Daughter Jacque at bedside)
A 12 point ROS was completed and negative except as noted: Yes
Constitutional: Denies Fever, Fatigue or Chills
EENT: Denies Sore Throat or Runny Nose
Respiratory: Reports Cough and Trouble Breathing
Cardiac: Denies Chest Pain, Diaphoresis, Palpitations or Syncope
Abdomen/GI: Denies Abdominal Pain, Nausea, Vomiting, Diarrhea, Constipated, Bloody Stools or Black Stools
: Denies Dysuria, Frequency, Flank Pain, Incontinence, Difficulty Voiding or Urgency
Musculoskeletal: Reports Edema (Bilateral lower legs right greater than left); Denies Joint Pain
Skin: Denies Itching or Rash
Neurological: Denies Dizzy, Headache or Weakness
Endocrine: Reports No Symptoms
Hematologic/Lymphatic: Reports No Symptoms
Psych: Reports Calm
Physical Exam
Vital Signs
Vital Signs
Temp Pulse Resp BP Pulse Ox
97.5 F 94 18 141/120 95
10/28/23 18:39 10/28/23 20:15 10/28/23 20:15 10/28/23 20:00 10/28/23 20:15
Physical Exam
HEENT: NormoCephalic, Anicteric, Moist mucous membranes, PERRLA, No Ptosis and Oxygen (2 L nasal cannula)
Respiratory: Wheezes (Expiratory)
Cardiac: S1/S2, Irregular Rhythm (Atrial flutter) and Peripheral Edema (+1 right lower extremity, trace left lower extremity); No Murmur, Rub, Gallop or JVD
Breast: Deferred by me
GI: Soft, Non Tender, Non Distended, Normal Bowel Sounds and No Hepatosplenomegaly
Rectal: Deferred by Provider
Genito-urinary: Deferred by me
Musculoskeletal: Clubbing (Of all fingernails), No Cyanosis, Edema, Left Lower Extremity (Trace) and Edema, Right Lower Extremity (+1); No Edema, Left Upper Extremity or Edema, Right Upper Extremity
Skin: Warm and Dry; No Rash or Jaundice
Neuro: AO x 3, No Motor Deficits, Nonfocal/grossly intact and No Sensory Deficits; No Slurred Speech, Facial Droop or Tremors
Psych: Calm
Laboratory Results
-
10/28/23 19:32
10/28/23 19:32
Laboratory Results
Lactic Acid 2.1 mmol/L (0.7-2.0) H 10/28/23 19:56
Total Bilirubin 1.1 mg/dl (0.2-1.3) 10/28/23 19:32
AST 39 U/L (17-59) 10/28/23 19:32
ALT 24 U/L (0-50) 10/28/23 19:32
Alkaline Phosphatase 119 U/L (38-126) 10/28/23 19:32
Troponin I 0.042 ng/ml H* 10/28/23 19:32
Impression/Plan
-
Impression/plan:
Admit to telemetry
#Acute hypoxic resp insuff 2/2 acute on chronic heart failure
#Hx bronchiolitis exacerbation August 20, 2023 treated with oral Doxy
-Peripheral edema right greater than left
88% RA, 95% 2 LNC
Weight 59.5 k> 56.2 kg 08/31/2023 = 3 KG weight gain 2 months
COVID-negative
BNP 2059
-IV Lasix 40 mg given in ER
-Continue IV Lasix 20 mg daily
-Consult [facility] cardiology
-Venous Doppler right lower extremity
-PT/OT/case management consult
#Acute on chronic COPD exacerbation/possible acute bronchitis
#Active smoker 1 pack/day x 71 years
-Xopenex
-Decadron IV 4 mg every 6 hours
-Cessation advised
--Consult Pulmonary
-Continue Trelegy Ellipta or equivalent
--Zithromax 500 mg, 250 mg daily
-Sputum culture
-Follow CBC, CMP
#Nonischemic myocardial injury
#CAD/[place]/cardiac stent
Troponin 0.042, will trend
-Continue beta-nicolasa,Atorvastatin 80 mg at bedtime
#Hx Atrial flutter�new Dx 08/20/2023
-Follows with [facility] cardiology
-Continue metoprolol 12.5 mg XL
-Patient not on AC therapy due to recent duodenal ulcer GI bleed requiring clipping
EKG: Atrial flutter with AV block, incomplete RBBB heart rate 111 bpm, QTc 486 MS
2D echo 08/21/2023: EF 50-55%, possible basal inferior hypokinesis. Moderate LVH. Dilated right ventricle. Biatrial dilatation. Mild/moderate MR
#Mild/moderate MR
#Hx Bradycardia 08/20/23
#Had Coreg stopped and Toprol was started
#Hx duodenal ulcer with GI bleed
#Required 3 EGDs with last on 08/29/2023 including clipping and injection
Hgb 12.5
-Continue PPI 40 mg twice daily Protonix
#BPH
-Continue Flomax 0.4 mg at bedtime
#Chronic back pain/DJD on chronic oral opiates
-Continue Vicodin 1 tab 3 times daily as needed
DVT prophylaxis
Subcu heparin
DNR per patient with daughter Jacque at bedside
--- NOTE | 2023-10-28 21:27 | W.PN.UPDATE ---
Update Note
Progress Note Update
This note serves as an addendum to the H&P by nurse's companion ROSIBEL Little PONCE
HPI
83M HX COPD, HX HFrEF with recoved LVEF, A Flutter seen at ER for evaluation of SoB and cough
SoB
- with productive cough with congestion
- incresed sputum production
- not helped by rescue inhaler
- no CP
- No feve and chills
- POx 93- 95 on RA
Ref A Flutter
- recently seen by Card and held eliquis till OP f/u again in 2weeks
PHX
A Flutter on Eliquis
COPD
HTN
VT
(GI bleed
CAD with VT and stent
SHX
Tobacco: Smoker
Alcohol: None
Drug: None
Personal:
Living: with family
Employment: Retired
FHx CAD
Reviewed VS: Afebrile HR 80s to 90s BP 140/120 POx 93-95 on RA
PE
Gen: SoB with exertion, NAD, Not toxic
HEENT: anicteric
Neck: supple. no JVD
Lungs: b/l expiratory wheeze and rhonchi
Cor: S1 S2 tachy arrhythmia
Abdomen: soft benign exam
SQE: AAO3 NFND
MS: edema of Rt leg > Lt
Psych:
Data
Hgb 12.5 - baseline Hgb mid 7s to mid 8s
MCV 102
CO2 31 - baseline hi 20s
eGFR > 60
TPNI 0.042
proBNP 0 - was 1020 on 08/20/23
EKG: A Flutter with variable block
08/21/23 TTE
EF 50-55
Kvng I diastolic dysfunction
Mod LVH
Dilated RV but preserved RV function
08/20/23 CXR: No acute cardiopulmonary process
10/28/23 CXR: pending report
Last hospitalist admission: 08/20/23 - 08/31/23
1. New atrial flutter.
2. Duodenal ulcer with Gastrointestinal (3
esophagogastroduodenoscopies performed).
ASSESSMENT & PLAN
SOB, productive cough with b/l wheeze
Suspect COPD flare with colored sputum with +/_ acute HF due to COPD flare
- empiric PO azithromycin
- cont. IV Decadron 4 mg q6h
- cont Xopenex tid and PRN
- O2 support to keep POx > 93
- IV Lasix 20 daily till eval by Card
- Pul consult
- [facility] card consult
Active smoking, nicotine dependence
- nicotine patch
Troponin elevation suspect NIMI
- No CP Chest pain resolved
- f/u Troponin till peak
A Flutter
- cont. Metoprolol sux
- [facility] card consult
Edema of Rt leg > Lt
- Angelia US
DVT Px: SQH
Code: DNR per patient in the presence of daughter
IP TLM
[2023-10-28] MEDS: ZITHROMAX 500 MG PO (21:40)
[2023-10-29] VITALS (16 sets, daily range): BP systolic 98–131; BP diastolic 50–84; PULSE 91; O2SAT 93–95; BMI 19.8; BMI 22.5
[2023-10-29] MEDS: FLOMAX 0.400000000000000022 MG PO ×2 (00:15→21:27)
[2023-10-29 01:17] LABS: Lactic Acid 1.4 mmol/L (0.7-2.0)
[2023-10-29 01:34] LABS: Troponin I 0.057 ng/ml
--- NOTE | 2023-10-29 02:00 | PTCARENOTE ---
pt admitted into room 2258, VS and weight obtained. admission questions and med rec done. pt a.flutter on monitor, HR 90's. POX 97% on 3LNC. pt AAOx4, denies any pain. PIV intact and patent. EKG done. see worklist for full assessment, VS, and
interventions. pt resting comfortably.
--- NOTE | 2023-10-29 05:30 | PTCARENOTE ---
pt VSS, no changes in assessment. Aflutter 80's-90's. PXO 98% on 2LNC. AM labs drawn and sent. pt sleeping between care.
[2023-10-29 05:53] LABS: % Basophils 0.3 % (0-2); % Immature Granulocytes 0.3 % (0-0.5); % Lymphocytes 10.4 % (20.5-51.1); % Monocytes 3.3 % (1.7-9.3); % Neutrophils 85.7 % (42.2-75.2); Absolute Lymphocytes 0.3 10^3/uL (1.2-3.4); Absolute Monocytes 0.1 10^3/uL (0.1-0.6); Absolute Neutrophils 2.6 10^3/uL (1.4-6.5); Hematocrit 38.5 % (39.0-52.0); Hemoglobin 12.3 g/dL (13.0-18.0); Mean Corp Hgb Conc. 31.9 g/dL (33.0-37.0); Mean Corpuscular Hgb 31.8 pg (27.0-31.0); Mean Corpuscular Volume 99.5 fL (80.0-94.0); Mean Platelet Volume 11.2 fL (7.4-10.4); Nucleated Red Blood Cells % 0 % (-); Platelet Count 215 10^3/uL (130-400); Red Blood Cell Count 3.87 10^6/uL (4.70-6.10); Red Cell Dist. Width 17.2 % (11.5-14.5)
[2023-10-29 06:05] LABS: ALT (SGPT) 23 U/L (0-50); AST (SGOT) 35 U/L (17-59); Alkaline Phosphatase 105 U/L (38-126); Blood Urea Nitrogen 20 mg/dl (9-20); Calcium 9.8 mg/dl (8.4-10.2); Carbon Dioxide 32 mmol/L (22-30); Chloride 99 mmol/L (98-107); Estimated Creatinine Clearance 44 ml/min; Glucose 152 mg/dl (70-99); Potassium 4.4 mmol/L (3.5-5.1); Sodium 140 mmol/L (135-145); Total Bilirubin 0.8 mg/dl (0.2-1.3); Total Protein 6.9 g/dl (6.3-8.2); eGFR > 60.00
[2023-10-29 06:17] LABS: Troponin I 0.054 ng/ml
--- NOTE | 2023-10-29 06:33 | W.PN.HOSP.TC ---
Today's Communication/Plan
-
.
Assessment / Plan
Assessment / Plan
Physical Exam
HEENT: Normocephalic, Anicteric, Moist mucous membranes, PERRLA,
Respiratory: not much wheezes, limited
Cardiac: S1/S2,
GI: Soft, Non Tender, Non Distended, Normal Bowel Sounds
Rectal: No rectal bleeding
Genito-urinary: No Vazquez or hematuria.
Musculoskeletal: Clubbing (Of all fingernails), No Cyanosis,. Less edema in legs
Skin: Warm and Dry;
Neuro: AO , he followed commands
Psych: Calm
#Acute hypoxic resp failure with distress/ wheezes/ hypoxia due to acute on chronic heart failure with reduced EF at 50% & COPD exacerbation
#Hx bronchiolitis exacerbation August 20, 2023 treated with oral Doxy
Less edema in legs today
He feels better
reduce frequency of steroid therapy, c/w NEB
c/w Lasix with elevated Pro-BNP and Chest x ray c/w pulmonary edema
Appreciate cardiology input
#Nonischemic myocardial injury
#CAD/VT/cardiac stent
Troponin 0.042, peak at 0.057 then came down. No chest pain
-Continue beta-nicolasa,Atorvastatin 80 mg at bedtime
#Hx Atrial flutter�new Dx 08/20/2023
-Continue metoprolol 12.5 mg XL
-Patient was not on AC therapy due to recent duodenal ulcer GI bleed requiring clipping but per report ( should be ok to start Now )
#Mild/moderate MR
#Hx Bradycardia 08/20/23
#Had Coreg stopped and Toprol was started
#Hx duodenal ulcer with GI bleed
#Required 3 EGDs with last on 08/29/2023 including clipping and injection
Hgb 12.5
-Continue PPI 40 mg twice daily Protonix
#BPH
-Continue Flomax 0.4 mg at bedtime
#Chronic back pain/DJD on chronic oral opiates
-Continue Vicodin 1 tab 3 times daily as needed
DVT prophylaxis
Subcu heparin
Total time spent to see the patient, examine the patient on the floor, review data and lab results, discuss treatment plan with patient, nursing staff around 55 minutes
Anticipated Discharge: > 48 hours
Subjective/Interval History
-
Date of Service: October 29, 2023
No sob
No chest pain
No fevers
Objective Data
-
Labs:
Laboratory Results
10/28/23 10/29/23
19:32 05:29
WBC 7.2 Pending
Hgb 12.5 L Pending
Hct 40.2 Pending
Plt Count 214 Pending
Sodium 141 140
Potassium 4.7 4.4
Chloride 101 99
Carbon Dioxide 31 H 32 H
BUN 17 20
Creatinine 1.1 1.0
Glucose 104 H 152 H
Calcium 10.1 9.8
Total Bilirubin 1.1 0.8
AST 39 35
ALT 24 23
Alkaline Phosphatase 119 105
Vital Signs:
Vital Signs
Temp Pulse Resp BP Pulse Ox
97.7 F 92 18 126/63 97
10/29/23 02:11 10/29/23 02:11 10/29/23 02:11 10/29/23 02:11 10/29/23 02:11
I&O
10/27/23 10/28/23 10/29/23
06:59 06:59 06:59
Output Total 1849
Balance -1849 / -1849
[2023-10-29] MEDS: SPIRIVA RESPIMAT 2.5 MCG 2 PUFF INH (06:40)
[2023-10-29] MEDS: XOPENEX 1.25 MG INHALANT SOLUTION INH ×3 (06:41→19:50)
[2023-10-29] MEDS: SYMBICORT 160/4.5 MCG INHALER 2 PUFF INH ×2 (06:41→19:50)
[2023-10-29] MEDS: DECADRON 4 MG IV ×2 (08:20→20:34)
[2023-10-29] MEDS: HEPARIN 5000 UNITS SC (08:20)
[2023-10-29] MEDS: AVAPRO 150 MG PO (08:20)
[2023-10-29] MEDS: LASIX 20 MG IV (08:20)
[2023-10-29] MEDS: FEOSOL 325 MG PO (08:20)
[2023-10-29] MEDS: PROTONIX 40 MG PO ×2 (08:21→20:34)
[2023-10-29] MEDS: LIPITOR 80 MG PO (08:21)
[2023-10-29] MEDS: THERAGRAN 1 TABLET PO (08:21)
[2023-10-29] MEDS: MUCINEX 600 MG PO ×2 (08:21→20:34)
[2023-10-29] MEDS: TOPROL XL 12.5 MG PO (08:21)
--- NOTE | 2023-10-29 09:04 | PTCARENOTE ---
Received pt from fountain server RN; pt AAOx3 and resting comfortably in chair; A-flutter on monitor and VSS: Lungs diminished; positive bowel sounds; pt voiding clear yellow urine; palpable pluses throughout; no edema noted; see nursing documentation
for further details.
--- NOTE | 2023-10-29 09:12 | CON.CAR ---
Addendum entered and electronically signed by Maxine Julian PA-C 10/29/23 11:16:
patient had history of gi bleeding due to duodenal ulcer. had been restarted on eliquis. then had cardiology office visit 09/2023 where he complained of hemoptysis. eliquis placed on hold. saw pulm 10/09 in office. d/w pulm today, will attempt to
resume eliquis 2.5mg BID and monitor for hemoptysis while here.
Addendum entered and electronically signed by Orlando Maynard MD 10/29/23 11:01:
I saw and examined the patient.
The Cash Register Balancer's note was reviewed and I agree with the note.
Comment: Briefly, 83-year-old man past medical history of CAD, atrial flutter and COPD who presents with progressive dyspnea
proBNP was found to be elevated and chest x-ray suggestive of pulmonary edema as well as pleural effusions
Patient is actively wheezing on exam, suspect that his dyspnea is multifactorial, related to both COPD as well as some degree of heart failure
Transthoracic echocardiogram in August 2023 with low normal LV systolic function, 50 to 55%, no need to repeat echo at this time
Agree with gentle IV diuresis in hopes of improving his volume and respiratory status
Monitor renal function, electrolytes and daily weights
In regards to his atrial flutter, he is currently rate controlled on oral metoprolol
Oral anticoagulation has been on hold due to GI bleeding workup is still ongoing with plan for capsule study as an outpatient
Original Note:
Consultation
Consultation Request
Date/Time Consultation Performed: 10/29/23
Requesting Provider: Dr. Luevano
Performing Provider: Maxine Julian PA-C for Dr. Maynard
Reason for Consultation: CHF
Medical History
-
Chief Complaint: SOB
History of Present Illness:
Patient is an 83 yo M with PMH of COPD with ongoing tobacco use, rate controlled atrial flutter, not OAC candidate due to history of GI bleed, h/o CAD, AAA who presents to with ~ 1 month of progressive SOB. States is has been waking him up at
night and is not relieved with use of a nebulizer. He reports some LE edema. Stopped checking his weight daily so unsure if weight gain. Denies fevers, chills, abd bloating, palpitations, CP. ProBNP 1999. CXR with evidence of small to mod L pleural
effusion and pulm edema. Also with wheezing. Not on lasix as OP. Cardiology consulted for evaluation.
PMH:
GIB, with hematemesis 08/2023
COPD
Atrial flutter, rate controlled of unclear duration
History of tachy-madison syndrome
CAD with prior remote 'silent' MIs, PTCA to mid RCA, BOW STAPLER of distal RCA and LCx PCI in 2004
Recovered ischemic cardiomyopathy with EF 50-55% by echo 08/2023
Hypertension
Dyslipidemia
Abdominal aortic aneurysm
Ongoing tobacco use
Chronic bronchitis
Renal insufficiency
Hyponatremia, mild
Past Medical History
Past Medical History: Other (in HPI)
Social History
Tobacco: Smoker (1/2 ppd)
Employment: Retired
Allergies / Home Medications
Allergy/AdvReac Type Severity Reaction Status Date / Time
venom-honey bee Allergy [id number] Verified 10/28/23 18:39
CLOSES
�Medication �Instructions �Recorded �Confirmed �Type
atorvastatin 80 mg tablet (Lipitor) 80 mg PO DAILY High Cholesterol 05/17/09 10/28/23 History
albuterol sulfate 2.5 mg/3 mL 2.5 mg inhalation R TID 08/20/23 10/28/23 History
(0.083 %) solution for nebulization Lung/Breathing Issues
albuterol sulfate 90 mcg/actuation 2 puff inhalation R Q4HPRN PRN sob 08/20/23 10/28/23 History
aerosol inhaler
fluticasone fur. 200 mcg-umeclid 1 inh inhalation R DAILY 08/20/23 10/28/23 History
62.5 mcg-vilant 25 mcg Lung/Breathing Issues
inhalat.powder (Trelegy Ellipta)
guaifenesin 600 mg tablet, 600 mg PO BID congestion/cough 08/20/23 10/28/23 History
extended release 12 hr (Mucinex)
hydrocodone 10 mg-acetaminophen 1 tab PO TIDPRN PRN chronic back 08/20/23 10/28/23 History
325 mg tablet pain
tamsulosin 0.4 mg capsule 0.4 mg PO HS Urinary Issue 08/20/23 10/28/23 History
metoprolol succinate 25 mg 12.5 mg (1/2 x 25 mg) PO DAILY #30 08/31/23 10/28/23 Rx
tablet,extended release 24 hr tabs
(Toprol XL)
pantoprazole 40 mg tablet,delayed 40 mg PO BID #60 tabs 08/31/23 10/28/23 Rx
release (Protonix)
ferrous sulfate 325 mg (65 mg 325 mg PO DAILY 10/28/23 10/28/23 History
iron) tablet (FeroSul)
irbesartan 150 mg tablet 150 mg PO DAILY 10/28/23 10/28/23 History
hkzoshao-ekk-ES 0.4 mg-calcium 162 1 tab PO DAILY 10/28/23 10/28/23 History
mg-iron 18 fq-usdsnkw-ddvckl tablet
Review of Systems
-
History Source: Patient
All other systems: Negative unless noted
Physical Exam
Vital Signs
Temp Pulse Resp BP Pulse Ox
97.8 F 91 18 129/84 95
10/29/23 07:56 10/29/23 07:50 10/29/23 07:56 10/29/23 07:50 10/29/23 09:10
Lab Results
10/29/23 05:29
10/29/23 05:29
Troponin I 0.054 ng/ml H* 10/29/23 05:29
Lgu-P-Oognraiyqjp Pept 2060 pg/ml 10/28/23 19:32
Physical Exam
General: No Apparent Distress, Comfortable and Other (frail appearing)
HEENT: Normocephalic, Anicteric and Moist Mucous Membranes
Respiratory: Wheezes and Non Labored Respirations
Cardiac: S1/S2 and Irregular Rhythm
GI: Soft, Non Tender, Non Distended and Normal Bowel Sounds
Musculoskeletal: No Clubbing, No Cyanosis and No Edema
Skin: Warm and Dry
Neuro: AO x 3
Impression / Plan
-
Primary Master In Chancery: Dr. Hutson
Assessment:
Presentation with SOB
Acute HFpEF
COPD with acute exacerbation
Elevated troponin, suspected nonischemic myocardial injury
GIB, due to duodenal ulcer s/p clipping 08/2023
Persistent atrial flutter, rate controlled
History of tachy-madison syndrome
CAD with prior remote 'silent' MIs, PTCA to mid RCA, BOW STAPLER of distal RCA and LCx PCI in 2004
Recovered ischemic cardiomyopathy with EF 50-55% by echo 08/2023
Hypertension
Dyslipidemia
Abdominal aortic aneurysm
Ongoing tobacco use
Chronic bronchitis
Renal insufficiency
Hyponatremia, mild
ECHO 10/31/2021: EF 45%, basal to mid inferolateral hypokinesis, basal inferior akinesis, stage I diastolic dysfunction, mild MR, mildly dilated left atrium
ECHO 08/21/2023: EF 50 to 55%, possible basal inferior hypokinesis, moderate LVH, dilated RV, biatrial dilatation, MAC, mild to moderate MR, aortic sclerosis, mild TR, PAP 30 to 35 mmHg
CAM monitor 08/2023: 100% atrial flutter with variable conduction, average heart rate 69 bpm with range 31 to 140 bpm, 2 pauses with longest 2.7 seconds, 15 NSVT episodes with longest 3 beats, PVC burden 0.8%
Plan:
-Patient presents with worsening shortness of breath over the last month
-Being treated for acute COPD exacerbation with steroids and antibiotics due to diffuse wheezing. Pulmonary following. Ongoing tobacco use as outpatient
-Cardiology consulted due to concern for acute CHF exacerbation in addition. proBNP 1999. CXR with small to mod pleural effusion and pulm edema. not on lasix as OP. responding well to IV lasix 20mg daily
-recent echo with results as above, will not repeat at this time
-HRs remain well controlled in aflutter. on toprol 12.5mg daily
-not OAC candidate given prior GI bleeding. hgb 12.3 on 10/28. denies recent bleeding. for OP capsule in 12/2023
-continue avapro. BPs controlled
-denies CP. trops flat at 0.05. suspect nonMI trop elevation. continue statin.
-d/w nursing
Data Reviewed
-
EKG: Tracing Personally Visualized and interpreted
Radiology: Report Reviewed by me
Medical Tests (Nuc Med, Echo etc): Report Reviewed by me
Labs: Labs Reviewed by me
Old Records: Reviewed
--- NOTE | 2023-10-29 10:04 | CON.PUL ---
Consultation
Consultation Request
Date/Time Consultation Requested: 10/29/2023-8 AM
Date/Time Consultation Performed: 10/29/2023-8 AM
Requesting Provider: Hospitalist
Performing Provider: Dr. Jules
Reason for Consultation: Shortness of breath/COPD exacerbation
Medical History
-
Chief Complaint: Shortness of breath
History of Present Illness:
83-year-old patient with COPD with ongoing smoking and chronic bronchitis and cardiomyopathy presented with increased shortness of breath and sputum production-pulmonary consulted for COPD exacerbation 10/29/2023. Patient states that he still has
shortness of breath with exertion. He denies any shortness of breath at rest and offers no complaints of chest pain, chest tightness, pleurisy, productive cough and admits to wheezing. He continued to smoke until admission. He did not complain of
any anorexia, abdominal pain, reflux, leg swelling or weakness.
Past Medical History
Past Medical History: None (CAD/stent. Cardiomyopathy ischemic-EF 45%. Hypertension. Hyperlipidemia. AAA. Chronic bronchitis. COPD. Ongoing smoking. Weight loss. Chronic cough.)
Social History
Tobacco: Smoker (24-ubfp-qvlc-continues 1 pack a day)
Drug: None
Personal:
Living: With Family
Occupational Exposures: No known asbestos exposure
Environmental Exposures: No known tuberculosis exposure
Family History
Family History: Other (No family history of CAD or pulmonary disease)
Allergies / Home Medications
Allergies
Allergy/AdvReac Type Severity Reaction Status Date / Time
venom-honey bee Allergy [id number]-TGHILC Verified 10/28/23 18:39
CLOSES
Home Medications
�Medication �Instructions �Recorded �Confirmed �Last Taken �Type
atorvastatin 80 mg tablet (Lipitor) 80 mg PO DAILY High Cholesterol 05/17/09 10/28/23 10/28/23 History
albuterol sulfate 2.5 mg/3 mL 2.5 mg inhalation R TID 08/20/23 10/28/23 10/28/23 History
(0.083 %) solution for nebulization Lung/Breathing Issues
albuterol sulfate 90 mcg/actuation 2 puff inhalation R Q4HPRN PRN sob 08/20/23 10/28/23 10/28/23 History
aerosol inhaler
fluticasone fur. 200 mcg-umeclid 1 inh inhalation R DAILY 08/20/23 10/28/23 10/28/23 History
62.5 mcg-vilant 25 mcg Lung/Breathing Issues
inhalat.powder (Trelegy Ellipta)
guaifenesin 600 mg tablet, 600 mg PO BID congestion/cough 08/20/23 10/28/23 10/28/23 History
extended release 12 hr (Mucinex)
hydrocodone 10 mg-acetaminophen 1 tab PO TIDPRN PRN chronic back 08/20/23 10/28/23 10/28/23 12:00 History
325 mg tablet pain
tamsulosin 0.4 mg capsule 0.4 mg PO HS Urinary Issue 08/20/23 10/28/23 10/27/23 History
metoprolol succinate 25 mg 12.5 mg (1/2 x 25 mg) PO DAILY #30 08/31/23 10/28/23 10/28/23 Rx
tablet,extended release 24 hr tabs
(Toprol XL)
pantoprazole 40 mg tablet,delayed 40 mg PO BID #60 tabs 08/31/23 10/28/23 10/28/23 Rx
release (Protonix)
ferrous sulfate 325 mg (65 mg 325 mg PO DAILY 10/28/23 10/28/23 10/28/23 History
iron) tablet (FeroSul)
irbesartan 150 mg tablet 150 mg PO DAILY 10/28/23 10/28/23 10/28/23 History
rwyuqdtv-clb-UD 0.4 mg-calcium 162 1 tab PO DAILY 10/28/23 10/28/23 10/28/23 History
mg-iron 18 xa-saybnal-zshhhd tablet
Review of Systems
-
Unable to Obtain full review of systems at this time due to: Other (Per HPI)
Vitals / Labs / Diagnostic Testing
Vital Signs
Temp Pulse Resp BP Pulse Ox
97.8 F 91 18 129/84 95
10/29/23 07:56 10/29/23 07:50 10/29/23 07:56 10/29/23 07:50 10/29/23 09:10
Lab Data
10/29/23 05:29
10/29/23 05:29
Microbiology
10/28/23 19:33 Nasal Swab Influenza Types A & B ([facility]) - Final
Negative for Influenza A & B, NAAT
Negative results must be combined with clinical observations
and patient history.
Nucleic Acid Amplification test (NAAT)performed on the
[employer] platform.
Diagnostic Testing:
Physical Exam
-
Exam:
Well-nourished and well-developed in no apparent distress
HEENT-atraumatic, normocephalic
Neck-supple, no JVD, no bruit
Heart-regular rate and rhythm-no murmurs, rubs or gallops
Chest with diminished breath sounds, prolonged expiratory time, rare basilar crackle and expiratory rhonchi and wheezing
Abdomen-soft, nontender, nondistended, no hepatosplenomegaly
Extremities-no cyanosis, clubbing, edema and good peripheral pulses
Integument-intact, no rashes, lesions or ecchymosis
Neurology-alert and oriented, nonfocal motor and sensory exam
Assessment
-
83-year-old patient with COPD with ongoing smoking and chronic bronchitis and cardiomyopathy presented with increased shortness of breath and sputum production-pulmonary consulted for COPD exacerbation 10/29/2023.
Assessment
COPD with acute exacerbation
CHF with preserved EF
Elevated troponin
Recent GI bleed/duodenal ulcer status post injection/clipping 08/2023
Persistent atrial flutter-rate controlled
Mild rylkya-foquzwmhqz-vmifsbvnyt 12.3
Mild hyperglycemia
Conditions present prior to admission:
CAD/stent-mid RCA, distal RCA and left circumflex 2004
Cardiomyopathy ischemic-EF 45%.
Atrial flutter-new diagnosis 08/2023
Tachybradycardia syndrome
Episode of hemoptysis 08/2023-Eliquis temporarily discontinued-no recurrence
Hypertension.
Hyperlipidemia.
AAA.
Chronic bronchitis.
COPD.
Cylindrical bronchiectasis
Ongoing smoking.
Weight loss.
Chronic cough.
History of duodenal ulcer with GI bleed-last EGD 08/29/2023 with clipping and injections
BPH
Chronic back pain/chronic oral opiates
Plan
Respiratory decompensation likely due to COPD with acute exacerbation as well as CHF preserved EF
Supplemental oxygen as needed-does not have home oxygen
Assess discharge supplemental oxygen needs-told patient he might require temporary oxygen at time of discharge
Nebulizers
Symbicort continues-outpatient uses Trelegy
Decadron 4 mg IV every 12 hours
Mucolytic's
Mucus clearing devices
Vest therapy if needed-has bronchiectasis
Check cultures
Empiric antibiotics
Reviewed with cardiology-Eliquis held after episode of hemoptysis in July-no recurrence
Trend troponin
Resume Eliquis and monitor for hemoptysis recurrence
Diuresis as tolerated
Diuresis note
Asymmetrical lower extremity edema-lower extremity ultrasound on the right 10/28/2023 negative for DVT
Monitor hemoglobin
Transfuse as needed
PPI
Ongoing smoking
Smoking cessation counseling provided
DVT prophylaxis-Eliquis reinitiated
Nutrition
Early mobilization
Outpatient pulmonary evaluation-last saw Dr. Kevin 10/10/2023-office appointment within 2 weeks after discharge for steroid taper monitoring
Declined pulmonary rehabilitation in the past
No longer eligible for yearly low-dose lung cancer screening CTs
Diagnostic data:
Chest x-ray 11/24/2017-hyperinflation, lungs clear
Chest x-ray 10/28/2023-mild vascular congestion, subtle interstitial edema, moderate right pleural effusion
CT chest 08/07/2023-centrilobular emphysema, cylindrical bronchiectasis, minimal tree-in-bud airspace disease right upper lobe
CT chest 08/22/2023-negative for pulmonary embolism, diffuse bronchial wall thickening compatible with bronchitis/bronchiolitis
Lower extremity ultrasound on the right-10/28/2023-negative for DVT
ECHO 10/31/2021: EF 45%, basal to mid inferolateral hypokinesis, basal inferior akinesis, stage I diastolic dysfunction, mild MR, mildly dilated left atrium
ECHO 08/21/2023: EF 50 to 55%, possible basal inferior hypokinesis, moderate LVH, dilated RV, biatrial dilatation, MAC, mild to moderate MR, aortic sclerosis, mild TR, PAP 30 to 35 mmHg
CAM monitor 08/2023: 100% atrial flutter with variable conduction, average heart rate 69 bpm with range 31 to 140 bpm, 2 pauses with longest 2.7 seconds, 15 NSVT episodes with longest 3 beats, PVC burden 0.8%
PFT 08/01/2016-FEV1 1.37-51%, FVC 3.0-79%, TLC 94%, RV 120%, DLCO 50%, DLCO/VA 82%
Data Reviewed
-
PFT: Report reviewed by me
EKG: Report reviewed by me
Radiology: Image personally visualized and interpreted and Report reviewed by me
CT Scan: Image personally visualized and interpreted and Report reviewed by me
Ultrasound: Report reviewed by me
Medical Tests (Nuc Med, Echo etc): Report reviewed by me
Labs: Labs reviewed by me
Old Records: Reviewed
Total Time Spent with Patient (in minutes): 65
--- NOTE | 2023-10-29 11:51 | PTCARENOTE ---
A-flutter on monitor and VSS; pt resting comfortably in chair and assessment unchanged.
--- NOTE | 2023-10-29 13:49 | CM ---
Reviewed chart. Met with Mr. Mills to review discharge plans. He states prior to admission he resides with his ex-son-in law in a bi-level home. He states he has six steps to get to each level. He states prior to admission he was independent with
ambulation and adls. He states he uses a single point cane when he is in the garden, He states he has a single point cane, walker and nebulizer at home He states he has had [facility] in the past. We reviewed [facility] services with him. He states he
does not feel he will need [facility]NA Services at this time. He states he has never been to a SNF/Rehab. He states he has a prescription plan and uses [facility]. He states his daughter fills his pill box at home and gets his medications from the
pharmacy. Medical work-up in progress. The discharge plan is to return home with his yw-cwx-ge-law when medically stable.
--- NOTE | 2023-10-29 16:00 | PTCARENOTE ---
Received patient at 1600. Patient AAOx3, no c/o pain, lungs diminished B/L with exp wheeze, HR irregular 88, trace LE edema, stands to void at bedside. Family at bedside, patient made aware of transfer to tele bed.
--- NOTE | 2023-10-29 17:24 | PTCARENOTE ---
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 abd soft NT. cont b &B skin CDI. +PP B/L trace b/l LE edema. CB in reach. family at bedside.
[2023-10-29] MEDS: ELIQUIS 2.5 MG PO (20:34)
[2023-10-29] MEDS: NORCO 7.5/325 1 TABLET PO (21:27)
[2023-10-29] MEDS: ZITHROMAX 250 MG PO (21:27)
[2023-10-30] VITALS (7 sets, daily range): BP systolic 81–118; BP diastolic 30–64; BMI 19.6
[2023-10-30 06:05] LABS: % Basophils 0.1 % (0-2); % Immature Granulocytes 0.5 % (0-0.5); % Lymphocytes 5.1 % (20.5-51.1); % Monocytes 5.5 % (1.7-9.3); % Neutrophils 88.8 % (42.2-75.2); Absolute Immature Granulocytes 0.1 10^3/uL (0-0.05); Absolute Lymphocytes 0.5 10^3/uL (1.2-3.4); Absolute Monocytes 0.5 10^3/uL (0.1-0.6); Absolute Neutrophils 8.4 10^3/uL (1.4-6.5); Hematocrit 34.9 % (39.0-52.0); Hemoglobin 11.5 g/dL (13.0-18.0); Mean Corpuscular Hgb 31.9 pg (27.0-31.0); Mean Corpuscular Volume 96.7 fL (80.0-94.0); Mean Platelet Volume 11.1 fL (7.4-10.4); Nucleated Red Blood Cells % 0 % (-); Platelet Count 210 10^3/uL (130-400); Red Blood Cell Count 3.61 10^6/uL (4.70-6.10); Red Cell Dist. Width 17.6 % (11.5-14.5); White Blood Cell Count 9.4 10^3/uL (4.8-10.8)
[2023-10-30 06:32] LABS: ALT (SGPT) 20 U/L (0-50); AST (SGOT) 35 U/L (17-59); Albumin 3.7 g/dl (3.5-5.0); Alkaline Phosphatase 90 U/L (38-126); Blood Urea Nitrogen 31 mg/dl (9-20); Calcium 9.5 mg/dl (8.4-10.2); Carbon Dioxide 33 mmol/L (22-30); Chloride 98 mmol/L (98-107); Estimated Creatinine Clearance 33 ml/min; Glucose 122 mg/dl (70-99); Potassium 4.1 mmol/L (3.5-5.1); Sodium 139 mmol/L (135-145); Total Bilirubin 0.6 mg/dl (0.2-1.3); Total Protein 6.3 g/dl (6.3-8.2); eGFR 53.84
[2023-10-30] MEDS: SYMBICORT 160/4.5 MCG INHALER 2 PUFF INH ×2 (08:09→19:52)
[2023-10-30] MEDS: XOPENEX 1.25 MG INHALANT SOLUTION INH ×3 (08:09→19:52)
[2023-10-30] MEDS: SPIRIVA RESPIMAT 2.5 MCG 2 PUFF INH (08:09)
[2023-10-30] MEDS: LASIX 20 MG IV (08:47)
[2023-10-30] MEDS: DECADRON 4 MG IV ×2 (08:47→20:31)
[2023-10-30] MEDS: ELIQUIS 2.5 MG PO ×2 (08:48→20:31)
[2023-10-30] MEDS: PROTONIX 40 MG PO ×2 (08:48→20:31)
[2023-10-30] MEDS: TOPROL XL 12.5 MG PO (08:48)
[2023-10-30] MEDS: AVAPRO 150 MG PO (08:48)
[2023-10-30] MEDS: LIPITOR 80 MG PO (08:49)
[2023-10-30] MEDS: MUCINEX 600 MG PO ×2 (08:49→20:31)
--- NOTE | 2023-10-30 10:03 | W.PN.PUL.V3 ---
Today's Communication / Plan
-
.
Wean oxygen.
Increase activity.
Diuretics per cardiology.
No change in Decadron-likely change to prednisone in the next 24 hours
Assessment
-
83-year-old patient with COPD with ongoing smoking and chronic bronchitis and cardiomyopathy presented with increased shortness of breath and sputum production-pulmonary consulted for COPD exacerbation 10/29/2023.
Assessment
COPD with acute exacerbation
CHF with preserved EF
Elevated troponin
Recent GI bleed/duodenal ulcer status post injection/clipping 08/2023
Persistent atrial flutter-rate controlled
Mild hhfwpi-rvhgazkhle-odllkkuewe 12.3
Mild hyperglycemia
Conditions present prior to admission:
CAD/stent-mid RCA, distal RCA and left circumflex 2004
Cardiomyopathy ischemic-EF 45%.
Atrial flutter-new diagnosis 08/2023
Tachybradycardia syndrome
Episode of hemoptysis 08/2023-Eliquis temporarily discontinued-no recurrence
Hypertension.
Hyperlipidemia.
AAA.
Chronic bronchitis.
COPD.
Cylindrical bronchiectasis
Ongoing smoking.
Weight loss.
Chronic cough.
History of duodenal ulcer with GI bleed-last EGD 08/29/2023 with clipping and injections
BPH
Chronic back pain/chronic oral opiates
Plan
Once again, the patient's respiratory decompensation likely due to COPD with acute exacerbation as well as CHF preserved EF
Supplemental oxygen as needed-does not have home oxygen-94% on room air
Assess discharge supplemental oxygen needs-told patient he might require temporary oxygen at time of discharge
Nebulizers
Symbicort continues-outpatient uses Trelegy
Decadron 4 mg IV every 12 hours-likely will reduce in the next 24 hours
Mucolytic's
Mucus clearing devices
Vest therapy if needed-has bronchiectasis
.
Cultures reviewed.
Sputum culture 10/29/23-not acceptable for appropriate culture
Empiric antibiotics-on azithromycin
Reviewed with cardiology-Eliquis held after episode of hemoptysis in July-no recurrence.
Troponin trended
Eliquis resumed.
Monitor for recurrent hemoptysis
Resume Eliquis and monitor for hemoptysis recurrence.
Diuresis as tolerated-Lasix on hold with rising creatinine.
Monitor renal function, lower extremity edema, intake, output and weight
Asymmetrical lower extremity edema-lower extremity ultrasound on the right 10/28/2023 negative for DVT
.
Follow hemoglobin
Transfuse as needed
PPI
Ongoing smoking noted
Smoking cessation counseling provided
DVT prophylaxis-Eliquis reinitiated
Nutrition
Early mobilization
Outpatient pulmonary evaluation-last saw Dr. Kevin 10/10/2023-office appointment within 2 weeks after discharge for steroid taper monitoring
Declined pulmonary rehabilitation in the past
No longer eligible for yearly low-dose lung cancer screening CTs
Diagnostic data:
Chest x-ray 11/24/2017-hyperinflation, lungs clear
Chest x-ray 10/28/2023-mild vascular congestion, subtle interstitial edema, moderate right pleural effusion
CT chest 08/07/2023-centrilobular emphysema, cylindrical bronchiectasis, minimal tree-in-bud airspace disease right upper lobe
CT chest 08/22/2023-negative for pulmonary embolism, diffuse bronchial wall thickening compatible with bronchitis/bronchiolitis
Lower extremity ultrasound on the right-10/28/2023-negative for DVT
ECHO 10/31/2021: EF 45%, basal to mid inferolateral hypokinesis, basal inferior akinesis, stage I diastolic dysfunction, mild MR, mildly dilated left atrium
ECHO 08/21/2023: EF 50 to 55%, possible basal inferior hypokinesis, moderate LVH, dilated RV, biatrial dilatation, MAC, mild to moderate MR, aortic sclerosis, mild TR, PAP 30 to 35 mmHg
CAM monitor 08/2023: 100% atrial flutter with variable conduction, average heart rate 69 bpm with range 31 to 140 bpm, 2 pauses with longest 2.7 seconds, 15 NSVT episodes with longest 3 beats, PVC burden 0.8%
PFT 08/01/2016-FEV1 1.37-51%, FVC 3.0-79%, TLC 94%, RV 120%, DLCO 50%, DLCO/VA 82%
Subjective Data
-
Date of Service:
Date of Service: October 30, 2023
Chief Complaint: Pulmonary Follow Up and Dyspnea Follow Up
Subjective:
Feels better, less short of breath, no complaints of wheezing, chest pain, chest tightness, or increase lower extremity edema
Review of Systems
General: Other ( per HPI)
Objective Data
Data Reviewed
Vital Signs / I&O:
Vital Signs
Temp Pulse Resp BP Pulse Ox
97.7 F 82 18 110/57 95
10/30/23 07:00 10/30/23 08:48 10/30/23 08:15 10/30/23 08:48 10/30/23 08:15
Intake and Output
10/29/23 10/30/23 10/31/23
06:59 06:59 06:59
Intake Total 200 / 200 600 / 600
Output Total 2300 / 2300 600 / 600
Balance -2100 / -2100 0 / 0
SaO2: 95
Nasal Cannula flow liters per minute: 2
Physical Exam
General: Respiratory Distress (n) and Comfortable
HEENT: Normocephalic, Anicteric and Moist Mucous Membranes
Cardiovascular: Regular Rhythm
Respiratory: Wheeze (. Forced end expiratory), Crackles (. Rare basilar), Rhonchi (n), Non-Labored Respirations, Accessory Resp Muscle Use (n) and Stridor
GI: Soft, Non Distended and Non Tender
Neurology: Awake, Alert and No Motor Deficits
Skin: Warm, Good Color, Cyanosis (n), Jaundice (n) and Rash (n)
Labs/Micro/Reports
Lab Data
10/30/23 05:05
10/30/23 05:05
Microbiology
10/28/23 19:56 Blood/Venous Blood Culture - Preliminary
No Growth in 24 hours- Final report to follow
10/28/23 19:32 Blood/Venous Blood Culture - Preliminary
No Growth in 24 hours- Final report to follow
10/29/23 18:52 Sputum Respiratory Culture - Final
10/29/23 18:52 Sputum Gram Stain - Final
10/29/23 10:26 Sputum Respiratory Culture - Final
10/29/23 10:26 Sputum Gram Stain - Final
10/28/23 19:33 Nasal Swab Influenza Types A & B ([facility]IL[facility]) - Final
Negative for Influenza A & B, NAAT
Negative results must be combined with clinical observations
and patient history.
Nucleic Acid Amplification test (NAAT)performed on the
[employer] platform.
--- NOTE | 2023-10-30 10:11 | CM ---
Patient seen at bedside. Patient indicated he was uncertain about next steps and that he was eager to go home. Patient family not present at this time. Patient is described as a continuing smoker per chart review. Per chart review, CM will continue
to follow for discharge planning needs.
Plan; home with family, watch home with VN vs home with VN
--- NOTE | 2023-10-30 12:11 | W.PN.CARDCBS ---
Addendum entered and electronically signed by Abdiel Zaragoza MD 10/31/23 18:21:
Patient offers no complaints
PMH/PSH/SH/FH: Reviewed
Allergies: None to medications
Outpatient cardiac medications: Atorvastatin 80 mg a day, irbesartan 150 mg daily, metoprolol ER 12.5 mg a day
Current meds: Azithromycin, atorvastatin 80 mg a day, irbesartan 150 mg daily, metoprolol ER 12.5 mg daily, apixaban 2.5 mg twice daily, prednisone 40 mg a day
ROS: Negative except as above
120/61, pulse 91, afebrile, sats 92%, curled in bed, offers no complaints, cachectic, temporal wasting, lungs diminished but no obvious rales, predominantly regular rate and rhythm, soft systolic murmur at apex
Echo: EF 50-55%, possible basal inferior hypokinesis, mild to moderate MR
Hemoglobin 12.1, platelets 218, BUN and creatinine 40 and 1.3, potassium 4.3
Plan:
He seems euvolemic. Will hold Lasix. Okay to hold irbesartan as he is normotensive, continue metoprolol at present. He does not seem to be wheezing much.
Will probably discharge on low-dose furosemide, possibly furosemide 20 mg 3 times a week, to be determined
We will follow-up peripherally for now
Addendum entered and electronically signed by Kendrick Thomas MD 10/30/23 13:21:
I saw and examined the patient.
The Compensation Vice President's note was reviewed and I agree with the note.
Comment:
GEN: No distress, awake, Ox3
HEENT: supple, anicteric, mmm
LUNGS: bilat rhonchi
CV: Reg, S1/S2, 1/6 syst LSB, no gallop
ABD: soft, BS+, NT/ND
EXT: No edema
NEURO: Gross non-focal
SKIN: No rash
Plan:
Creatinine up to 1.3. His weight is overall down. Will hold Lasix for now but likely would discharge on low-dose oral Lasix 20 mg daily. CHF education
Continue Toprol and Eliquis. A-fib remains rate controlled.
Continue COPD treatments.
Original Note:
Today's Communication / Plan
-
stop lasix. hold avapro
continue toprol, eliquis 2.5mg BID
treat COPD
Impression / Plan
-
Primary Saw Runner: Dr. Hutson
Assessment:
Presentation with SOB
Acute HFpEF
COPD with acute exacerbation
Elevated troponin, suspected nonischemic myocardial injury
GIB, due to duodenal ulcer s/p clipping 08/2023
Persistent atrial flutter, rate controlled
History of tachy-madison syndrome
CAD with prior remote 'silent' MIs, PTCA to mid RCA, HOUSE DETECTIVE of distal RCA and LCx PCI in 2004
Recovered ischemic cardiomyopathy with EF 50-55% by echo 08/2023
Hypertension
Dyslipidemia
Abdominal aortic aneurysm
Ongoing tobacco use
Chronic bronchitis
Renal insufficiency
Hyponatremia, mild
ECHO 10/31/2021: EF 45%, basal to mid inferolateral hypokinesis, basal inferior akinesis, stage I diastolic dysfunction, mild MR, mildly dilated left atrium
ECHO 08/21/2023: EF 50 to 55%, possible basal inferior hypokinesis, moderate LVH, dilated RV, biatrial dilatation, MAC, mild to moderate MR, aortic sclerosis, mild TR, PAP 30 to 35 mmHg
CAM monitor 08/2023: 100% atrial flutter with variable conduction, average heart rate 69 bpm with range 31 to 140 bpm, 2 pauses with longest 2.7 seconds, 15 NSVT episodes with longest 3 beats, PVC burden 0.8%
Plan:
-Patient remains with some shortness of breath and wheezing
-Suspect primarily pulmonary in etiology as now with bump in creatinine to 1.3 and relative hypotension. Will stop IV Lasix, was not on Lasix as an outpatient. hold OP avapro
-Treatment of COPD exacerbation per pulmonary
-recent echo with results as above, will not repeat at this time
-HRs remain well controlled in aflutter with occ PVCs. on toprol 12.5mg daily
-He had prior GI bleeding from duodenal ulcer s/p clipping 08/2023, as well as episode of hemoptysis 09/2023. denies recent bleeding. Discussed with pulmonary and hospitalist 10/28. Will trial on Eliquis 2.5 mg twice daily while here. Hemoglobin
11.5. for OP capsule 12/2023
-denies CP. trops flat at 0.05. suspect nonMI trop elevation. continue statin.
Progress Note - Saw Runner
Subjective
Date of Service: October 30, 2023
remains with SOB and wheezing
Objective
Labs:
10/30/23 05:05
10/30/23 05:05
Labs
Hgb 11.5 g/dL (13.0-18.0) L 10/30/23 05:05
Hct 34.9 % (39.0-52.0) L 10/30/23 05:05
Plt Count 210 10^3/uL (130-400) 10/30/23 05:05
Sodium 139 mmol/L (135-145) 10/30/23 05:05
Potassium 4.1 mmol/L (3.5-5.1) 10/30/23 05:05
BUN 31 mg/dl (9-20) H 10/30/23 05:05
Creatinine 1.3 mg/dL (0.7-1.3) 10/30/23 05:05
Glucose 122 mg/dl (70-99) H 10/30/23 05:05
Troponins
10/28/23 10/29/23 10/29/23
19:32 00:53 05:
Troponin I 0.042 H* 0.057 H* D 0.054 H*
Vital Signs and I&O:
Vital Signs
Temp Pulse Resp BP Pulse Ox
98.5 F 76 20 93/50 93
10/30/23 11:00 10/30/23 11:00 10/30/23 11:00 10/30/23 11:00 10/30/23 11:00
Vital Signs
Temp Pulse Resp BP Pulse Ox
98.5 F 76 20 93/50 93
10/30/23 11:00 10/30/23 11:00 10/30/23 11:00 10/30/23 11:00 10/30/23 11:00
Intake & Output
10/28/23 10/29/23 10/30/23 10/31/23
07:59 07:59 07:59 07:59
Intake Total 200 / 200 600 / 600
Output Total 2300 / 2300 600 / 600
Balance -2100 / -2100 0 / 0
Physical Exam
Physical Exam
GEN: No distress, awake, alert, oriented x3. frail appearing
HEENT: supple, anicteric, mmm, eomi
LUNGS: Rhonchi and wheezes B/L
CV: Irreg, S1/S2, no murmur
ABD: soft, BS+, NT/ND
EXT: No cyanosis, clubbing, edema
NEURO: Gross non-focal
SKIN: Warm, pink, dry. No rash
--- NOTE | 2023-10-30 13:13 | W.PN.HOSP.TC ---
Today's Communication/Plan
-
.
Assessment / Plan
Assessment / Plan
Physical Exam
HEENT: Normocephalic, Anicteric, Moist mucous membranes, PERRLA,
Respiratory: not much wheezes, limited
Cardiac: S1/S2,
GI: Soft, Non Tender, Non Distended, Normal Bowel Sounds
Rectal: No rectal bleeding
Genito-urinary: No Vazquez or hematuria.
Musculoskeletal: Clubbing (Of all fingernails), No Cyanosis,. Less edema in legs
Skin: Warm and Dry;
Neuro: AO , he followed commands
Psych: Calm
#Acute hypoxic resp failure with distress/ wheezes/ hypoxia due to acute on chronic heart failure with reduced EF at 50% & acute COPD exacerbation
#Hx bronchiolitis exacerbation August 20, 2023 treated with oral Doxy
Lost weight
He feels better than yesterday with less sob
reduced frequency of steroid therapy, c/w NEB
c/w Lasix with elevated Pro-BNP and Chest x ray c/w pulmonary edema but Lasix is held due to low BP today
Appreciate cardiology and pulmonary input input
# hypotension with creatinine going up to 1.3 and BUN up to 31 from 20
Holding Lasix and Avapro.
#Nonischemic myocardial injury
#CAD/[place]/cardiac stent
Troponin 0.042, peak at 0.057 then came down. No chest pain
-Continue beta-nicolasa,Atorvastatin 80 mg at bedtime
# Moderate protein-caloric malnutrition with loss of weight, temporal wasting
#Hx Atrial flutter�new Dx 08/20/2023
-Continue metoprolol 12.5 mg XL
[id number] score of 5 for age, HTN, Remote [place], recovered cardiomyopathy.
-Patient was not on AC therapy due to recent duodenal ulcer GI bleed requiring clipping the developing bloody sputum later on, per GI report ( should be ok to start ) . Pulmonary was ok to start Eliquis, will monitor HGB here while in hospital.
#Mild/moderate MR
#Hx Bradycardia 08/20/23
#Had Coreg stopped and Toprol was started
#Hx duodenal ulcer with GI bleed
#Required 3 EGDs with last on 08/29/2023 including clipping and injection
Hgb 12.5
-Continue PPI 40 mg twice daily Protonix
#BPH
-Continue Flomax 0.4 mg at bedtime
#Chronic back pain/DJD on chronic oral opiates
-Continue Vicodin 1 tab 3 times daily as needed
DVT prophylaxis
Eliquis
Total time spent to see the patient, examine the patient on the floor, review data and lab results, discuss treatment plan with patient, daughter, nursing staff around 55 minutes
Anticipated Discharge: 24 - 48 hours
Subjective/Interval History
-
Date of Service: October 30, 2023
No chest pain
Less sob
Had cough with sputum earlier this morning
Objective Data
-
Labs:
Laboratory Results
10/30/23
05:05
WBC 9.4
Hgb 11.5 L
Hct 34.9 L
Plt Count 210
Sodium 139
Potassium 4.1
Chloride 98
Carbon Dioxide 33 H
BUN 31 H
Creatinine 1.3
Glucose 122 H
Calcium 9.5
Total Bilirubin 0.6
AST 35
ALT 20
Alkaline Phosphatase 90
Vital Signs:
Vital Signs
Temp Pulse Resp BP Pulse Ox
98.5 F 68 16 93/50 93
10/30/23 11:00 10/30/23 13:10 10/30/23 13:10 10/30/23 11:00 10/30/23 11:00
I&O
10/29/23 10/30/23 10/31/23
06:59 06:59 06:59
Intake Total 200 / 200 600 / 600
Output Total 2300 / 2300 600 / 600
Balance -2099 / -2099 0 / 0
[2023-10-30] MEDS: NORCO 7.5/325 1 TABLET PO (16:56)
[2023-10-30] MEDS: FLUSH (NSS) 2 FLUSH IV (20:32)
[2023-10-30] MEDS: ZITHROMAX 250 MG PO (21:41)
[2023-10-30] MEDS: FLOMAX 0.400000000000000022 MG PO (21:42)
[2023-10-31] VITALS (8 sets, daily range): BP systolic 101–132; BP diastolic 54–64; PULSE 79–87; O2SAT 94–95; BMI 19.8
[2023-10-31] MEDS: LIPITOR 80 MG PO (08:03)
[2023-10-31] MEDS: ELIQUIS 2.5 MG PO ×2 (08:03→19:17)
[2023-10-31] MEDS: PROTONIX 40 MG PO ×2 (08:03→19:17)
[2023-10-31] MEDS: DECADRON 4 MG IV (08:03)
[2023-10-31] MEDS: XOPENEX 1.25 MG INHALANT SOLUTION INH ×3 (08:04→19:31)
[2023-10-31] MEDS: MUCINEX 600 MG PO ×2 (08:04→19:17)
[2023-10-31] MEDS: SYMBICORT 160/4.5 MCG INHALER 2 PUFF INH ×2 (08:04→19:31)
[2023-10-31] MEDS: SPIRIVA RESPIMAT 2.5 MCG 2 PUFF INH (08:04)
[2023-10-31] MEDS: TOPROL XL 12.5 MG PO (08:04)
[2023-10-31 08:18] LABS: Hematocrit 39.1 % (39.0-52.0); Hemoglobin 12.1 g/dL (13.0-18.0); Mean Corp Hgb Conc. 30.9 g/dL (33.0-37.0); Mean Corpuscular Hgb 31.5 pg (27.0-31.0); Mean Corpuscular Volume 101.8 fL (80.0-94.0); Mean Platelet Volume 11.1 fL (7.4-10.4); Platelet Count 218 10^3/uL (130-400); Red Blood Cell Count 3.84 10^6/uL (4.70-6.10); Red Cell Dist. Width 17.9 % (11.5-14.5); White Blood Cell Count 8.5 10^3/uL (4.8-10.8)
[2023-10-31 09:02] LABS: Blood Urea Nitrogen 40 mg/dl (9-20); Calcium 9.7 mg/dl (8.4-10.2); Carbon Dioxide 35 mmol/L (22-30); Chloride 98 mmol/L (98-107); Estimated Creatinine Clearance 34 ml/min; Glucose 86 mg/dl (70-99); Magnesium 1.9 mg/dl (1.6-2.3); Potassium 4.3 mmol/L (3.5-5.1); Sodium 142 mmol/L (135-145); eGFR 53.84
--- NOTE | 2023-10-31 09:55 | W.PN.PUL.V3 ---
Today's Communication / Plan
-
Wean oxygen.
Increase activity.
Wean steroids-changed to prednisone in the next 24 hours.
Outpatient pulmonary follow-up
Assessment
-
83-year-old patient with COPD with ongoing smoking and chronic bronchitis and cardiomyopathy presented with increased shortness of breath and sputum production-pulmonary consulted for COPD exacerbation 10/29/2023.
Assessment
COPD with acute exacerbation
CHF with preserved EF
Elevated troponin
Recent GI bleed/duodenal ulcer status post injection/clipping 08/2023
Persistent atrial flutter-rate controlled
Mild wrzwkx-whutcyfhzc-vzcwzkrtyi 12.3
Mild hyperglycemia
Conditions present prior to admission:
CAD/stent-mid RCA, distal RCA and left circumflex 2004
Cardiomyopathy ischemic-EF 45%.
Atrial flutter-new diagnosis 08/2023
Tachybradycardia syndrome
Episode of hemoptysis 08/2023-Eliquis temporarily discontinued-no recurrence
Hypertension.
Hyperlipidemia.
AAA.
Chronic bronchitis.
COPD.
Cylindrical bronchiectasis
Ongoing smoking.
Weight loss.
Chronic cough.
History of duodenal ulcer with GI bleed-last EGD 08/29/2023 with clipping and injections
BPH
Chronic back pain/chronic oral opiates
Plan
.
The patient's respiratory decompensation likely due to COPD with acute exacerbation as well as CHF preserved EF
Supplemental oxygen as needed-does not have home oxygen-94% on room air
Assess discharge supplemental oxygen needs-told patient he might require temporary oxygen at time of discharge
Nebulizers
Symbicort continues-outpatient uses Trelegy
Decrease Decadron to 3 mg IV every 12 hours and change to prednisone in the next 24 hours
Mucolytic's
Mucus clearing devices
Vest therapy if needed-has bronchiectasis
.
Cultures reviewed.
Sputum culture 10/29/23-not acceptable for appropriate culture
Empiric antibiotics-on azithromycin
Reviewed with cardiology-Eliquis held after episode of hemoptysis in July-no recurrence.
Troponin trended
Eliquis resumed.
Monitor for recurrent hemoptysis
Resume Eliquis and monitor for hemoptysis recurrence.
Diuresis as tolerated-Lasix on hold with rising creatinine.
Monitor renal function, lower extremity edema, intake, output and weight
Asymmetrical lower extremity edema-lower extremity ultrasound on the right 10/28/2023 negative for DVT
Follow hemoglobin-Remained stable at 12.1
Transfuse as needed
PPI
The patient's ongoing smoking noted
Smoking cessation counseling provided
DVT prophylaxis-Eliquis reinitiated
Nutrition
Early mobilization
Outpatient pulmonary evaluation-last saw Dr. Kevin 10/10/2023-office appointment within 2 weeks after discharge for steroid taper monitoring
Declined pulmonary rehabilitation in the past
No longer eligible for yearly low-dose lung cancer screening CTs
Diagnostic data:
Chest x-ray 11/24/2017-hyperinflation, lungs clear
Chest x-ray 10/28/2023-mild vascular congestion, subtle interstitial edema, moderate right pleural effusion
CT chest 08/07/2023-centrilobular emphysema, cylindrical bronchiectasis, minimal tree-in-bud airspace disease right upper lobe
CT chest 08/22/2023-negative for pulmonary embolism, diffuse bronchial wall thickening compatible with bronchitis/bronchiolitis
Lower extremity ultrasound on the right-10/28/2023-negative for DVT
ECHO 10/31/2021: EF 45%, basal to mid inferolateral hypokinesis, basal inferior akinesis, stage I diastolic dysfunction, mild MR, mildly dilated left atrium
ECHO 08/21/2023: EF 50 to 55%, possible basal inferior hypokinesis, moderate LVH, dilated RV, biatrial dilatation, MAC, mild to moderate MR, aortic sclerosis, mild TR, PAP 30 to 35 mmHg
CAM monitor 08/2023: 100% atrial flutter with variable conduction, average heart rate 69 bpm with range 31 to 140 bpm, 2 pauses with longest 2.7 seconds, 15 NSVT episodes with longest 3 beats, PVC burden 0.8%
PFT 08/01/2016-FEV1 1.37-51%, FVC 3.0-79%, TLC 94%, RV 120%, DLCO 50%, DLCO/VA 82%
Subjective Data
-
Date of Service:
Date of Service: October 31, 2023
Chief Complaint: Pulmonary Follow Up and Dyspnea Follow Up
Subjective:
Feels better, less short of breath, no complaints of chest pain, productive cough, abdominal pain or leg swelling
Review of Systems
General: Other ( per HPI)
Objective Data
Data Reviewed
Vital Signs / I&O:
Vital Signs
Temp Pulse Resp BP Pulse Ox
97.8 F 69 16 114/59 97
10/31/23 07:00 10/31/23 08:17 10/31/23 08:17 10/31/23 07:00 10/31/23 08:17
Intake and Output
10/30/23 10/31/23 11/01/23
06:59 06:59 06:59
Intake Total 600 / 600 780 / 780
Output Total 600 / 600
Balance 0 / 0 780 / 780
SaO2: 97
Nasal Cannula flow liters per minute: 2
Physical Exam
General: Respiratory Distress (n) and Comfortable
HEENT: Normocephalic, Anicteric and Moist Mucous Membranes
Cardiovascular: Regular Rhythm
Respiratory: Wheeze (. Forced end expiratory), Crackles (. Rare basilar), Rhonchi (n), Non-Labored Respirations, Accessory Resp Muscle Use (n) and Stridor
GI: Soft, Non Distended and Non Tender
Neurology: Awake, Alert and No Motor Deficits
Skin: Warm, Good Color, Cyanosis (n), Jaundice (n) and Rash (n)
Labs/Micro/Reports
Lab Data
10/31/23 07:29
10/31/23 07:29
Microbiology
10/28/23 19:56 Blood/Venous Blood Culture - Preliminary
No Growth in 48 hours- Final report to follow
10/28/23 19:32 Blood/Venous Blood Culture - Preliminary
No Growth in 48 hours- Final report to follow
10/29/23 18:52 Sputum Respiratory Culture - Final
10/29/23 18:52 Sputum Gram Stain - Final
10/29/23 10:26 Sputum Respiratory Culture - Final
10/29/23 10:26 Sputum Gram Stain - Final
10/28/23 19:33 Nasal Swab Influenza Types A & B ([facility]) - Final
Negative for Influenza A & B, NAAT
Negative results must be combined with clinical observations
and patient history.
Nucleic Acid Amplification test (NAAT)performed on the
[employer] platform.
[2023-10-31] MEDS: NORCO 7.5/325 1 TABLET PO ×3 (10:05→20:52)
--- NOTE | 2023-10-31 10:16 | W.PN.HOSP.TC ---
Today's Communication/Plan
-
Stable HGB while on Eliquis
Will change to oral prednisone in next 24 hours.
Agree to dc on low dose Lasix.
Plan to dc in or Friday
Assessment / Plan
Assessment / Plan
Physical Exam
HEENT: Normocephalic, Anicteric, Moist mucous membranes, PERRLA,
Respiratory: not much wheezes, limited
Cardiac: S1/S2,
GI: Soft, Non Tender, Non Distended, Normal Bowel Sounds
Rectal: No rectal bleeding
Genito-urinary: No Vazquez or hematuria.
Musculoskeletal: Clubbing (Of all fingernails), No Cyanosis,. Less edema in legs
Skin: Warm and Dry;
Neuro: AO , he followed commands
Psych: Calm
#Acute hypoxic resp failure with distress/ wheezes/ hypoxia due to acute on chronic heart failure with reduced EF at 50% & acute COPD exacerbation
#Hx bronchiolitis exacerbation August 20, 2023 treated with oral Doxy
Heart failure: stabilized and euvolemic now. He lost weight
He feels better with less sob
Reduced frequency of steroid therapy, c/w NEB, will change to oral prednisone
c/w Lasix upon dc . He received IV Lasix: with elevated Pro-BNP and Chest x ray c/w pulmonary edema but Lasix is held due to low BP today
Appreciate cardiology and pulmonary input input
# hypotension with creatinine going up to 1.3 and BUN up to 31 from 20
Held Lasix and Avapro.
#Nonischemic myocardial injury
#CAD/[place]/cardiac stent
Troponin 0.042, peak at 0.057 then came down. No chest pain
-Continue beta-nicolasa,Atorvastatin 80 mg at bedtime
# Moderate protein-caloric malnutrition with loss of weight, temporal wasting
#Hx Atrial flutter�new Dx 08/20/2023
-Continue metoprolol 12.5 mg XL
[id number] score of 5 for age, HTN, Remote [place], recovered cardiomyopathy.
-Patient was not on AC therapy due to recent duodenal ulcer GI bleed requiring clipping the developing bloody sputum later on, per GI report ( should be ok to start ) . Pulmonary was ok to start Eliquis, will monitor HGB here while in hospital.
Sable hemoglobin.
#Mild/moderate MR
#Hx Bradycardia 08/20/23
#Had Coreg stopped and Toprol was started
#Hx duodenal ulcer with GI bleed
#Required 3 EGDs with last on 08/29/2023 including clipping and injection
Hgb 12.5
-Continue PPI 40 mg twice daily Protonix
#BPH
-Continue Flomax 0.4 mg at bedtime
#Chronic back pain/DJD on chronic oral opiates
-Continue Vicodin 1 tab 3 times daily as needed
DVT prophylaxis
Eliquis
Total time spent to see the patient, examine the patient on the floor, review data and lab results, discuss treatment plan with patient, daughter, nursing staff around 55 minutes
Anticipated Discharge: 24 - 48 hours
Subjective/Interval History
-
Date of Service: October 31, 2023
No complaints
No chest pain. No sob
Objective Data
-
Labs:
Laboratory Results
10/31/23
07:29
WBC 8.5
Hgb 12.1 L
Hct 39.1
Plt Count 218
Sodium 142
Potassium 4.3
Chloride 98
Carbon Dioxide 35 H
BUN 40 H
Creatinine 1.3
Glucose 86
Calcium 9.7
Vital Signs:
Vital Signs
Temp Pulse Resp BP Pulse Ox
97.8 F 69 16 114/59 97
10/31/23 07:00 10/31/23 08:17 10/31/23 08:17 10/31/23 07:00 10/31/23 09:55
I&O
10/30/23 10/31/23 11/01/23
06:59 06:59 06:59
Intake Total 600 / 600 780 / 780
Output Total 600 / 600
Balance 0 / 0 780 / 780
--- NOTE | 2023-10-31 17:37 | CM ---
SPoke with patient at bedside.
At dc daughter Gia will drive him home.
IMM reviewed IMM copy given IMM signed on chart.
Offered VN he declined need at dc.
He lives with Abdiel.
PLAN Home no needs
--- NOTE | 2023-10-31 18:03 | W.PN.UPDATE ---
Addendum entered and electronically signed by Abdiel Zaragoza MD 10/31/23 18:09:
Please disregard the below, note entered in wrong chart
Original Note:
Update Note
Progress Note Update
I was contacted by Dr. Rosas. [facility] will accept patient in transfer on Friday.
[2023-10-31] MEDS: FLOMAX 0.400000000000000022 MG PO (20:49)
[2023-10-31] MEDS: ZITHROMAX 250 MG PO (20:52)
--- NOTE | 2023-11-01 02:38 | PTCARENOTE ---
Pt's pipe insulator alarmed twice for low heart rate in the 30s. Once woken up, HR returns to the 70s in A-flutter. Pt offers no complaints. JOB Brito made aware, Cardiology previously consulted. No new orders.
[2023-11-01 03:00] VITALS: BP 104/60
[2023-11-01 06:00] LABS: Hematocrit 35.4 % (39.0-52.0); Hemoglobin 11.1 g/dL (13.0-18.0); Mean Corp Hgb Conc. 31.4 g/dL (33.0-37.0); Mean Corpuscular Hgb 31.5 pg (27.0-31.0); Mean Corpuscular Volume 100.6 fL (80.0-94.0); Mean Platelet Volume 11.2 fL (7.4-10.4); Platelet Count 203 10^3/uL (130-400); Red Blood Cell Count 3.52 10^6/uL (4.70-6.10); Red Cell Dist. Width 17.8 % (11.5-14.5); White Blood Cell Count 8.3 10^3/uL (4.8-10.8)
[2023-11-01 06:21] LABS: Blood Urea Nitrogen 40 mg/dl (9-20); Calcium 9.3 mg/dl (8.4-10.2); Carbon Dioxide 34 mmol/L (22-30); Chloride 100 mmol/L (98-107); Estimated Creatinine Clearance 40 ml/min; Glucose 81 mg/dl (70-99); Potassium 4.4 mmol/L (3.5-5.1); Sodium 139 mmol/L (135-145); eGFR > 60.00
[2023-11-01 07:20] LABS: Folate 9.4 ng/ml (2.76-20); Vitamin B12 425 pg/ml (239-931)
[2023-11-01] MEDS: XOPENEX 1.25 MG INHALANT SOLUTION INH ×3 (07:32→20:38)
[2023-11-01] MEDS: SPIRIVA RESPIMAT 2.5 MCG 2 PUFF INH (07:32)
[2023-11-01] MEDS: SYMBICORT 160/4.5 MCG INHALER 2 PUFF INH ×2 (07:32→20:38)
[2023-11-01] MEDS: MUCINEX 600 MG PO ×2 (07:48→19:27)
[2023-11-01] MEDS: TOPROL XL 12.5 MG PO (07:48)
[2023-11-01] MEDS: PROTONIX 40 MG PO ×2 (07:48→19:27)
[2023-11-01] MEDS: DELTASONE 40 MG PO (07:48)
[2023-11-01] MEDS: LIPITOR 80 MG PO (07:48)
[2023-11-01] MEDS: ELIQUIS 2.5 MG PO ×2 (07:48→19:27)
[2023-11-01] MEDS: NORCO 7.5/325 1 TABLET PO ×2 (07:52→19:31)
[2023-11-01 08:06] VITALS: BP 136/68
[2023-11-01 11:36] VITALS: BP 133/73
--- NOTE | 2023-11-01 13:14 | W.PN.HOSP.TC ---
Today's Communication/Plan
-
dc planning
Likely dc in am
Assessment / Plan
Assessment / Plan
Physical Exam
HEENT: Normocephalic, Anicteric, Moist mucous membranes, PERRLA,
Respiratory: not much wheezes, limited
Cardiac: S1/S2,
GI: Soft, Non Tender, Non Distended, Normal Bowel Sounds
Rectal: No rectal bleeding
Genito-urinary: No Vazquez or hematuria.
Musculoskeletal: Clubbing (Of all fingernails), No Cyanosis,. Less edema in legs
Skin: Warm and Dry;
Neuro: AO , he followed commands
Psych: Calm
#Acute hypoxic resp failure with distress/ wheezes/ hypoxia due to acute on chronic heart failure with reduced EF at 50% & acute COPD exacerbation
#Hx bronchiolitis exacerbation August 20, 2023 treated with oral Doxy
Heart failure: stabilized and euvolemic now. He lost weight , will resume low dose Lasix
He feels SOB this morning.
Reduced frequency of steroid therapy, c/w NEB, changed to oral prednisone
Appreciate cardiology and pulmonary input input
# hypotension with creatinine going up to 1.3 and BUN up to 31 from 20
Held Lasix and Avapro.
#Nonischemic myocardial injury
#CAD/[place]/cardiac stent
Troponin 0.042, peak at 0.057 then came down. No chest pain
-Continue beta-nicolasa,Atorvastatin 80 mg at bedtime
# Moderate protein-caloric malnutrition with loss of weight, temporal wasting
#Hx Atrial flutter�new Dx 08/20/2023
-Continue metoprolol 12.5 mg XL
[id number] score of 5 for age, HTN, Remote [place], recovered cardiomyopathy.
-Patient was not on AC therapy due to recent duodenal ulcer GI bleed requiring clipping the developing bloody sputum later on, per GI report ( should be ok to start ) . Pulmonary was ok to start Eliquis, will monitor HGB here while in hospital.
Sable hemoglobin.
#Mild/moderate MR
#Hx Bradycardia 08/20/23
#Had Coreg stopped and Toprol was started
#Hx duodenal ulcer with GI bleed
#Required 3 EGDs with last on 08/29/2023 including clipping and injection
Hgb 12.5
-Continue PPI 40 mg twice daily Protonix
#BPH
-Continue Flomax 0.4 mg at bedtime
#Chronic back pain/DJD on chronic oral opiates
-Continue Vicodin 1 tab 3 times daily as needed
DVT prophylaxis
Eliquis
Total time spent to see the patient, examine the patient on the floor, review data and lab results, discuss treatment plan with patient, daughter, nursing staff around 55 minutes
Anticipated Discharge: Within 24 hours
Subjective/Interval History
-
Date of Service: November 01, 2023
Objective Data
-
Labs:
Laboratory Results
11/01/23
04:35
WBC 8.3
Hgb 11.1 L
Hct 35.4 L
Plt Count 203
Sodium 139
Potassium 4.4
Chloride 100
Carbon Dioxide 34 H
BUN 40 H
Creatinine 1.1
Glucose 81
Calcium 9.3
Vital Signs:
Vital Signs
Temp Pulse Resp BP Pulse Ox
98 F 75 16 133/73 94
11/01/23 11:36 11/01/23 11:36 11/01/23 11:36 11/01/23 11:36 11/01/23 11:36
I&O
10/31/23 11/01/23 11/02/23
06:59 06:59 06:59
Intake Total 780 / 780 900 / 900
Output Total 250 / 250
Balance 780 / 780 650 / 650
[2023-11-01 15:44] VITALS: BP 136/77
--- NOTE | 2023-11-01 17:08 | W.PN.PUL3 ---
Today's Communication / Plan
-
Continue Xopenex while in the hospital
Continue inhalers-to transition to Trelegy upon discharge
Complete 5 days of azithromycin
Smoking cessation strongly encouraged
High risk for readmission due to ongoing smoking
Diuretics per cardiology
Outpatient follow-up with Dr. Kevin
Hopefully discharge tomorrow.
Assessment
-
83-year-old patient with COPD with ongoing smoking and chronic bronchitis and cardiomyopathy presented with increased shortness of breath and sputum production-pulmonary consulted for COPD exacerbation 10/29/2023.
Assessment
COPD with acute exacerbation
CHF with preserved EF
Elevated troponin
Recent GI bleed/duodenal ulcer status post injection/clipping 08/2023
Persistent atrial flutter-rate controlled
Mild ogxqhb-ctzrnmmuif-dulnsqsuim 12.3
Mild hyperglycemia
Conditions present prior to admission:
CAD/stent-mid RCA, distal RCA and left circumflex 2004
Cardiomyopathy ischemic-EF 45%.
Atrial flutter-new diagnosis 08/2023
Tachybradycardia syndrome
Episode of hemoptysis 08/2023-Eliquis temporarily discontinued-no recurrence
Hypertension.
Hyperlipidemia.
AAA.
Chronic bronchitis.
COPD.
Cylindrical bronchiectasis
Ongoing smoking.
Weight loss.
Chronic cough.
History of duodenal ulcer with GI bleed-last EGD 08/29/2023 with clipping and injections
BPH
Chronic back pain/chronic oral opiates
Plan
.
The patient's respiratory decompensation likely due to COPD with acute exacerbation as well as CHF preserved EF
-
Clinically improved
Does not require supplemental oxygen. Good air movement. Bronchospasm has resolved.
-
Nebulizers-Xopenex 3 times daily
Restarted on inhalers
Prednisone taper, decrease by 10 mg every 72 hours to off.
outpatient uses Trelegy
.
Cultures reviewed.
Sputum culture 10/29/23-not acceptable for appropriate culture
Empiric antibiotics-on azithromycin, complete total of 5 days.
Status post diuresis-euvolemic now
Cardiology has signed off
Asymmetrical lower extremity edema-lower extremity ultrasound on the right 10/28/2023 negative for DVT
The patient's ongoing smoking noted
Smoking cessation counseling provided
DVT prophylaxis-Eliquis reinitiated
Outpatient pulmonary evaluation-last saw Dr. Kevin 10/10/2023-office appointment within 2 weeks after discharge for steroid taper monitoring
Declined pulmonary rehabilitation in the past
No longer eligible for yearly low-dose lung cancer screening CTs
Diagnostic data:
Chest x-ray 11/24/2017-hyperinflation, lungs clear
Chest x-ray 10/28/2023-mild vascular congestion, subtle interstitial edema, moderate right pleural effusion
CT chest 08/07/2023-centrilobular emphysema, cylindrical bronchiectasis, minimal tree-in-bud airspace disease right upper lobe
CT chest 08/22/2023-negative for pulmonary embolism, diffuse bronchial wall thickening compatible with bronchitis/bronchiolitis
Lower extremity ultrasound on the right-10/28/2023-negative for DVT
ECHO 10/31/2021: EF 45%, basal to mid inferolateral hypokinesis, basal inferior akinesis, stage I diastolic dysfunction, mild MR, mildly dilated left atrium
ECHO 08/21/2023: EF 50 to 55%, possible basal inferior hypokinesis, moderate LVH, dilated RV, biatrial dilatation, MAC, mild to moderate MR, aortic sclerosis, mild TR, PAP 30 to 35 mmHg
CAM monitor 08/2023: 100% atrial flutter with variable conduction, average heart rate 69 bpm with range 31 to 140 bpm, 2 pauses with longest 2.7 seconds, 15 NSVT episodes with longest 3 beats, PVC burden 0.8%
PFT 08/01/2016-FEV1 1.37-51%, FVC 3.0-79%, TLC 94%, RV 120%, DLCO 50%, DLCO/VA 82%
Subjective Data
-
Date of Service:
Date of Service: November 01, 2023
Chief Complaint: Pulmonary Follow Up and Dyspnea Follow Up
Subjective:
Clinically improved
Continues to have some coughing without hemoptysis
Shortness of breath better
Review of Systems
Cardiopulmonary: Dyspnea (improved), Cough (n), Sputum Production, Wheezing (improved) and Chest Pain (n)
GI: Abdominal Pain (n) and Nausea (n)
Objective Data
Data Reviewed
Vital Signs / I&O / Oxygen:
Vital Signs
Temp Pulse Resp BP Pulse Ox
97.9 F 70 16 136/77 93
11/01/23 15:44 11/01/23 15:44 11/01/23 15:44 11/01/23 15:44 11/01/23 15:44
Intake and Output
10/31/23 11/01/23 11/02/23
06:59 06:59 06:59
Intake Total 780 / 780 900 / 900
Output Total 250 / 250
Balance 780 / 780 650 / 650
SaO2 93
Nasal Cannula flow liters per 2
minute
Physical Exam
General: Respiratory Distress (n), Comfortable and Other (Able to speak in full sentences)
HEENT: Normocephalic, Anicteric and Moist Mucous Membranes
Cardiovascular: Regular Rhythm
Respiratory: Wheeze (none), Crackles (. Rare basilar), Rhonchi (Bilateral, minimal.), Non-Labored Respirations, Accessory Resp Muscle Use (n), Stridor and Other (Good air movement.)
GI: Soft, Non Distended and Non Tender
Neurology: Awake, Alert and No Motor Deficits
Skin: Warm, Good Color, Cyanosis (n), Jaundice (n) and Rash (n)
Labs/Micro/Reports
Lab Data
11/01/23 04:35
11/01/23 04:35
Microbiology
10/28/23 19:56 Blood/Venous Blood Culture - Preliminary
No Growth in 72 hours- Final report to follow
10/28/23 19:32 Blood/Venous Blood Culture - Preliminary
No Growth in 72 hours- Final report to follow
10/29/23 18:52 Sputum Respiratory Culture - Final
10/29/23 18:52 Sputum Gram Stain - Final
[2023-11-01 19:00] VITALS: BP 125/60
[2023-11-01] MEDS: ZITHROMAX 250 MG PO (21:35)
[2023-11-01] MEDS: FLOMAX 0.400000000000000022 MG PO (21:35)
[2023-11-01 23:00] VITALS: BP 127/58
[2023-11-02 03:00] VITALS: BP 158/83
[2023-11-02] MEDS: XOPENEX 1.25 MG INHALANT SOLUTION INH ×3 (03:19→13:35)
[2023-11-02] MEDS: NORCO 7.5/325 1 TABLET PO (03:35)
[2023-11-02 06:00] VITALS: BMI 19.9
[2023-11-02 07:00] VITALS: BP 140/79
[2023-11-02] MEDS: SPIRIVA RESPIMAT 2.5 MCG 2 PUFF INH (07:33)
[2023-11-02] MEDS: SYMBICORT 160/4.5 MCG INHALER 2 PUFF INH (07:33)
[2023-11-02] MEDS: TOPROL XL 12.5 MG PO (08:57)
[2023-11-02] MEDS: MUCINEX 600 MG PO (08:57)
[2023-11-02] MEDS: DELTASONE 40 MG PO (08:57)
[2023-11-02] MEDS: LIPITOR 80 MG PO (08:57)
[2023-11-02] MEDS: PROTONIX 40 MG PO (08:57)
[2023-11-02] MEDS: ELIQUIS 2.5 MG PO (08:57)
[2023-11-02 11:00] VITALS: BP 152/73
--- NOTE | 2023-11-02 11:44 | W.DCSUMMARY ---
Discharge Summary
Discharge Data
Date of Admission: 10/28/23
Date of Discharge: 11/02/23
-
Pending Results: No
Hospital Course
83 years old male presented with shortness of breath and mild hypoxia. Patient was diagnosed with acute exacerbation of chronic obstructive pulmonary disease and acute on chronic heart failure with preserved ejection fraction. He had minimally
elevated troponin secondary to nonischemic myocardial injury patient was evaluated by envelope folder. Given intravenous Lasix in the hospital. Cardiology recommended to hold Avapro due to low blood pressure and to continue on low-dose Lasix every
other day. Patient was started on Eliquis which was held in the past due to GI bleeding and hemoptysis. He was monitored in the hospital with no recurrent active bleeding. Hemoglobin remained stable. Patient was seen by pulmonary doctor. He was
given intravenous steroid and nebulizer treatment. Patient improved. Smoking cessation was strongly encouraged and patient verbalized understanding. Patient finished course of Zithromax in the hospital. He was discharged on Trelegy. He did not
need oxygen upon discharge. He remained hemodynamically stable and was discharged in a stable condition with home care services. Discharge instructions were discussed with his family.
Physical Exam
HEENT: Normocephalic, Anicteric, Moist mucous membranes, PERRLA,
Respiratory: not much wheezes, limited
Cardiac: S1/S2,
GI: Soft, Non Tender, Non Distended, Normal Bowel Sounds
Rectal: No rectal bleeding
Genito-urinary: No Vazquez or hematuria.
Musculoskeletal: Clubbing (Of all fingernails), No Cyanosis,. Less edema in legs
Skin: Warm and Dry;
Neuro: AO , he followed commands
Psych: Calm.
Total discharge time spent to see the patient, examine the patient on the floor, review data and lab results, discuss discharge plan with patient, family, nursing staff around 65 minutes
Discharge Plan
-
Patient Disposition: Home with Home Care
Discharge Diagnosis/Procedures: -Acute chronic obstructive pulmonary disease exacerbation
-Continued tobacco use, strongly encouraged to quit. High risk for readmission.
-Acute on chronic heart failure with preserved ejection fraction. Continue on Lasix low-dose every other day. Stopped Avapro for now due to low blood pressure.
History of atrial flutter. You were started back on Eliquis to avoid risk of stroke. Your hemoglobin was monitored and remained stable in the hospital.
Diet: As tolerated
Specialty Instructions: Weigh Daily- Call MD for wt gain/loss 3 lbs overnight/5 lbs in 1 week
Instructions: *[facility] Heart Failure Instructions
Referrals:
Remedios Santos PA-C [Specified Professional Personl] - 11/03/23 2:00 pm (You have a cardiology follow-up appointment at the [place] office with Dr. Hutson's physician contract assistant, Remedios. Please call with questions)
Parish Ryan MD [Active] - in two to three weeks (Or nurse practitioner)
Jessica Madrigal PA [Family Provider] - in one to two weeks
Prescriptions:
New
Eliquis 2.5 mg Tablet
2.5 mg PO BID Qty: 60 0RF
prednisone 10 mg tablet
40 mg PO DAILY Qty: 30 0RF
Rx Instructions:
40 mg X3 days , 30 mg X3 days, 20 mg X3 days,10 mg X3 days
furosemide [Lasix] 20 mg tablet
20 mg PO .every other day Qty: 20 0RF
Continued
atorvastatin [Lipitor] 80 MG tablet
80 mg PO DAILY
albuterol sulfate 2.5 mg /3 mL (0.083 %) Solution For Nebulization
2.5 mg INHALATION R TID
hydrocodone-acetaminophen 10-325 mg Tablet
1 tab PO TIDPRN PRN (Reason: chronic back pain)
Patient Comments:
10/28/2023: last filled 09/26/23, 90 tabs for 30 days from [id number]
tamsulosin 0.4 mg Capsule
0.4 mg PO HS
albuterol sulfate 90 mcg/actuation Hfa Aerosol Inhaler
2 puff INHALATION R Q4HPRN PRN (Reason: sob)
guaifenesin [Mucinex] 600 mg Tablet Extended Release 12hr
600 mg PO BID
Trelegy Ellipta 200-62.5-25 mcg Blister With Device
1 inh INHALATION R DAILY
metoprolol succinate [Toprol XL] 25 mg tablet extended release 24 hr
12.5 mg PO DAILY Qty: 30 0RF
pantoprazole [Protonix] 40 mg tablet,delayed release (DR/EC)
40 mg PO BID Qty: 60 2RF
ferrous sulfate [FeroSul] 325 mg (65 mg iron) tablet
325 mg PO DAILY
irbesartan 150 mg tablet
150 mg PO DAILY
sl-xar-IJ-Pe-Id-tzwoqdl-lutein 0.4-162-18 mg Tablet
1 tab PO DAILY
Discharge Orders:
Discharge Patient (As Directed); Ordered 11/02/23
Ordered By: Mackenzie Luevano
Care Plan Goals
Care Plan Goals:
Problem: Readiness for enhanced knowledge related to diagnosis and treatment plan
Goal: Understand your diagnosis and treatment plan needs, including medications if applicable.
Instructions: Know your diagnosis, underlying causes and treatment plan options, including medications if applicable. Consult with your health care team to learn about your diagnosis and treatment plan, including medications if applicable.
Discharge Date and Time
Discharge Date/Time: 11/02/23 14:29
Print Language: TELUGU
--- NOTE | 2023-11-02 13:57 | W.PN.PUL3 ---
Today's Communication / Plan
-
Complete 5 days of antibiotic
Prednisone taper
Restart inhalers
Smoking cessation
Discharge planning
Sign off
Assessment
-
83-year-old patient with COPD with ongoing smoking and chronic bronchitis and cardiomyopathy presented with increased shortness of breath and sputum production-pulmonary consulted for COPD exacerbation 10/29/2023.
Assessment
COPD with acute exacerbation
CHF with preserved EF
Elevated troponin
Recent GI bleed/duodenal ulcer status post injection/clipping 08/2023
Persistent atrial flutter-rate controlled
Mild lqhtfn-usodsciyye-zoxhdbuubt 12.3
Mild hyperglycemia
Conditions present prior to admission:
CAD/stent-mid RCA, distal RCA and left circumflex 2004
Cardiomyopathy ischemic-EF 45%.
Atrial flutter-new diagnosis 08/2023
Tachybradycardia syndrome
Episode of hemoptysis 08/2023-Eliquis temporarily discontinued-no recurrence
Hypertension.
Hyperlipidemia.
AAA.
Chronic bronchitis.
COPD.
Cylindrical bronchiectasis
Ongoing smoking.
Weight loss.
Chronic cough.
History of duodenal ulcer with GI bleed-last EGD 08/29/2023 with clipping and injections
BPH
Chronic back pain/chronic oral opiates
Plan
.
The patient's respiratory decompensation likely due to COPD with acute exacerbation as well as CHF preserved EF
-
Improved since admission.
Does not require supplemental oxygen. Good air movement. Bronchospasm has resolved.
-
Nebulizers-Xopenex 3 times daily while in the hospital.
Restarted on inhalers Symbicort/tiotropium while in the hospital.
Prednisone taper, decrease by 10 mg every 72 hours to off.
outpatient uses Trelegy
.
Cultures reviewed.
Sputum culture 10/29/23-not acceptable for appropriate culture
Empiric antibiotics-on azithromycin, complete total of 5 days.
Status post diuresis-euvolemic now
Cardiology has signed off
Asymmetrical lower extremity edema-lower extremity ultrasound on the right 10/28/2023 negative for DVT
The patient's ongoing smoking noted
Smoking cessation counseling provided
DVT prophylaxis-Eliquis reinitiated
Outpatient pulmonary evaluation-last saw Dr. Kevin 10/10/2023-office appointment within 2 weeks after discharge for steroid taper monitoring
Declined pulmonary rehabilitation in the past
No longer eligible for yearly low-dose lung cancer screening CTs
-
No additional recommendation from the pulmonary perspective.
At this point I will sign off. Discharge planning
Diagnostic data:
Chest x-ray 11/24/2017-hyperinflation, lungs clear
Chest x-ray 10/28/2023-mild vascular congestion, subtle interstitial edema, moderate right pleural effusion
CT chest 08/07/2023-centrilobular emphysema, cylindrical bronchiectasis, minimal tree-in-bud airspace disease right upper lobe
CT chest 08/22/2023-negative for pulmonary embolism, diffuse bronchial wall thickening compatible with bronchitis/bronchiolitis
Lower extremity ultrasound on the right-10/28/2023-negative for DVT
ECHO 10/31/2021: EF 45%, basal to mid inferolateral hypokinesis, basal inferior akinesis, stage I diastolic dysfunction, mild MR, mildly dilated left atrium
ECHO 08/21/2023: EF 50 to 55%, possible basal inferior hypokinesis, moderate LVH, dilated RV, biatrial dilatation, MAC, mild to moderate MR, aortic sclerosis, mild TR, PAP 30 to 35 mmHg
CAM monitor 08/2023: 100% atrial flutter with variable conduction, average heart rate 69 bpm with range 31 to 140 bpm, 2 pauses with longest 2.7 seconds, 15 NSVT episodes with longest 3 beats, PVC burden 0.8%
PFT 08/01/2016-FEV1 1.37-51%, FVC 3.0-79%, TLC 94%, RV 120%, DLCO 50%, DLCO/VA 82%
Subjective Data
-
Date of Service:
Date of Service: November 02, 2023
Chief Complaint: Pulmonary Follow Up and Dyspnea Follow Up
Subjective:
Clinically improved
Denies hemoptysis
Shortness of breath and wheezing resolving.
Review of Systems
General: Fever (n)
Cardiopulmonary: Dyspnea (Improved)
Objective Data
Data Reviewed
Vital Signs / I&O / Oxygen:
Vital Signs
Temp Pulse Resp BP Pulse Ox
97.5 F 69 16 152/73 92
11/02/23 11:00 11/02/23 11:00 11/02/23 11:00 11/02/23 11:00 11/02/23 11:00
Intake and Output
11/01/23 11/02/23 11/03/23
06:59 06:59 06:59
Intake Total 900 / 900 1200 / 1200
Output Total 250 / 250
Balance 650 / 650 1200 / 1200
SaO2 92
Nasal Cannula flow liters per 2
minute
Physical Exam
General: Respiratory Distress (n), Comfortable and Other (Able to speak in full sentences)
HEENT: Normocephalic, Anicteric and Moist Mucous Membranes
Cardiovascular: Regular Rhythm
Respiratory: Wheeze (none), Crackles (. Rare basilar), Rhonchi (Bilateral, minimal.), Non-Labored Respirations, Accessory Resp Muscle Use (n), Stridor and Other (Good air movement.)
GI: Soft, Non Distended and Non Tender
Neurology: Awake, Alert and No Motor Deficits
Skin: Warm, Good Color, Cyanosis (n), Jaundice (n) and Rash (n)
Labs/Micro/Reports
Lab Data
11/01/23 04:35
11/01/23 04:35
Microbiology
10/28/23 19:56 Blood/Venous Blood Culture - Preliminary
No Growth in 4 days- Final report to follow
10/28/23 19:32 Blood/Venous Blood Culture - Preliminary
No Growth in 4 days- Final report to follow
[2023-11-02] MEDS: ZITHROMAX 250 MG PO (13:59)
--- NOTE | 2023-11-02 14:46 | CM ---
Met with patient's son at his request. 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 Reviewed PT/OT. Discussed recommendation for VN services by attending. Met with patient who is in agreement with
VN. He selected . Offer was made to attempt to get authorization for SNF, however patient stated that he wants to go home.
Plan: Case management will continue to follow and assist with discharge planning. Home with VN.
== END 2023-11-02 14:29 | disposition home health service (06) | DRG 190 ==
LOC: 3 WEST ACU 21:49
PROVIDERS: Clinical Nurse Specialist Family Health; Emergency Medicine; Physician Assistant; ADMITTING PHYSICIAN Internal Medicine; ATTENDING PHYSICIAN Internal Medicine; CONSULT PHYSICIAN Internal Medicine Cardiovascular Disease; CONSULT PHYSICIAN Internal Medicine Critical Care Medicine; EMERGENCY PHYSICIAN Emergency Medicine; FAMILY PHYSICIAN Family Medicine; OTHER PHYSICIAN Internal Medicine Critical Care Medicine
DX: J44.1 Chronic obstructive pulmonary disease with (acute) exacerbation (principal); I50.43 Acute on chronic combined systolic (congestive) and diastolic (congestive) heart failure; J96.01 Acute respiratory failure with hypoxia; E44.0 Moderate protein-calorie malnutrition; E87.1 Hypo-osmolality and hyponatremia; I48.92 Unspecified atrial flutter; I5A Non-ischemic myocardial injury (non-traumatic); Z68.1 Body mass index [BMI] 19.9 or less, adult; I95.9 Hypotension, unspecified; I11.0 Hypertensive heart disease with heart failure; I71.40 Abdominal aortic aneurysm, without rupture, unspecified; D64.9 Anemia, unspecified; I49.5 Sick sinus syndrome; E78.00 Pure hypercholesterolemia, unspecified; J47.9 Bronchiectasis, uncomplicated; I34.0 Nonrheumatic mitral (valve) insufficiency; N40.0 Benign prostatic hyperplasia without lower urinary tract symptoms; F17.210 Nicotine dependence, cigarettes, uncomplicated; I25.10 Atherosclerotic heart disease of native coronary artery without angina pectoris; I25.5 Ischemic cardiomyopathy; I48.91 Unspecified atrial fibrillation; I25.2 Old myocardial infarction; G89.29 Other chronic pain; M47.9 Spondylosis, unspecified; R73.9 Hyperglycemia, unspecified; N28.9 Disorder of kidney and ureter, unspecified; Z95.5 Presence of coronary angioplasty implant and graft; Z82.49 Family history of ischemic heart disease and other diseases of the circulatory system; Z87.11 Personal history of peptic ulcer disease; Z79.891 Long term (current) use of opiate analgesic; Z79.51 Long term (current) use of inhaled steroids
CPT/HCPCS: 71045; 80048; 80053; 82607; 82746; 83605; 83735; 83880; 84484; 85025; 85027; 87040; 87205; 87502; 87811; 93005; 93971; 94640; 96374; 96375; 97116; 97163; 97166; 97535; 99285

== ENCOUNTER → 2023-12-31 06:29 | Day surgery (SDC) | payer OTHER, SELFPAY | LOC: GI 06:29 | PROVIDERS: ATTENDING PHYSICIAN Internal Medicine Gastroenterology | DX: K29.70 Gastritis, unspecified, without bleeding (principal); T18.3XXA Foreign body in small intestine, initial encounter; Y93.89 Activity, other specified; Z87.11 Personal history of peptic ulcer disease | CPT/HCPCS: 43239; 88305; 88342 ==

== ENCOUNTER 2024-09-22 08:59 | Emergency (ER) | payer OTHER, SELFPAY ==
--- NOTE | 2024-09-22 09:22 | ED.GENMED ---
History of Present Illness
<ANA Lerma - Last Filed: 09/22/24 10:34>
General
Chief Complaint: Cough
Source: patient and family (Daughter)
Exam Limitations: none
Time Seen by Provider: 09/22/24 09:06
Travel History
Have you traveled to any high risk areas for coronavirus over the past 14 days?: No
History of Present Illness
History of Present Illness:
84 y/o Male pt with a PMH of a PUD, COPD, AAA, CAD, HTN, CHF presenting to ED c/o of hemoptysis x 2 weeks. Pt had a GI bleed in December 2023. Reports blood in his sputum, states it is about the size of a quarter, constant with every cough. Reports
associated hematochezia, believes it has been going on for about 2 weeks as well. Brought in by daughter today because he just moved in with her and she is concerned for his health. Pt is on blood thinners. Denies abdominal pain today but daughter
states he complained of a 'tender belly' several days ago. No abdominal pain or tenderness on exam. Denies chest pain, SOB, night sweats, fevers, N/V/D and constipation.
Past History
<ANA Lerma - Last Filed: 09/22/24 10:34>
Past History
ED Past Medical History: Arrthythmia, COPD, HTN, UT and Other (GI bleed, coronary artery disease with UT and stent, COPD, hypertension)
Social History
Tobacco: Smoker
Alcohol: None
Drug: None
Personal:
Living: with family
Employment: Retired
Family History
Family History: CAD
Review of Systems
<ANA Lerma - Last Filed: 09/22/24 10:34>
Review of Systems
Constitutional: Reports no symptoms
EENT: Reports no symptoms
Respiratory: Reports cough and hemoptysis
Cardiac: Reports no symptoms
ABD/GI: Reports bloody stools and black stools
: Reports no symptoms
Musculoskeletal: Reports no symptoms
Skin: Reports no symptoms
Neurological: Reports no symptoms
Endocrine: Reports no symptoms
Hematologic/Lymphatic: Reports no symptoms
Phy Exam
<Tori Newberry [facility] - Last Filed: 09/22/24 10:34>
General Physical Exam
General Presentation: well appearing and no apparent distress
General age: appears stated age
General Skin: warm and dry
General Habitus: normal
General Mental: alert
General Hydration: appears well hydrated
ENT Exam
ENT Exam: neck supple and normocephalic
Cardiovascular Exam
Cardiovascular Exam: regular rate/rhythm, no edema, no gallop, no murmur and normal peripheral pulses
Heart Sounds: normal
Pulmonary Exam
Pulmonary Exam: no respiratory distress and chest non tender
Cough: productive cough
Respirations: mild increase in effort
Gastrointestinal Exam
Gastrointestinal Exam: normal bowel sounds, non tender, soft, no pulsatile mass and non distended
Palpation: left upper quadrant: Minimal tenderness, left lower quadrant: No tenderness, right upper quadrant: No tenderness and right lower quadrant: No tenderness
Rectal Exam: normal external exam, normal sphincter tone and soft stool
Stool: brown (Fecal Occult- trace positive)
Skin Exam
Skin Exam: normal color, warm/dry and no rash
Course
<Tori Newberry [facility] - Last Filed: 09/22/24 10:34>
Orders/Labs/Results
Orders:
Orders
09/22/24 09:19
Electrocardiogram (*1) Stat
Reason for Study: Other
Other Reason for Exam: pneumonia
EKG- Treatment ONCE
CR Chest - 2 Views Urgent
Comment:
Reason For Exam: cvough
09/22/24 09:49
Complete Blood Count/With Diff Urgent
Comprehensive Metabolic Panel Urgent
09/22/24 10:19
CT Chest PE Study Urgent
Comment:
Reason For Exam: Hemoptysis
Ipratropium/Albuterol Sulfate [Duoneb] 3 ml INH R NOW ONE
09/22/24 10:20
Pantoprazole [Protonix IV] 40 mg IV NOW STA
Abnormal Lab Results
09/22/24
09:49
RBC 3.94 L 10^6/uL
(4.70-6.10)
MCV 102.5 H fL
(80.0-94.0)
MCH 34.0 H pg
(27.0-31.0)
RDW 14.6 H %
(11.5-14.5)
MPV 10.9 H fL
(7.4-10.4)
Abs Immat Gran (auto) 0.1 H 10^3/uL
(0-0.05)
Immature Gran % 0.8 H %
(0-0.5)
Lymphocytes % 15.7 L %
(20.5-51.1)
Carbon Dioxide 31 H mmol/L
(22-30)
BUN 44 H mg/dl
(9-20)
09/22/24 09:49
09/22/24 09:49
Vital Signs
Initial and Last Documented VS:
Initial Vital Signs
Temp Pulse Resp Pulse Ox
97.8 F 68 20 98
09/22/24 09:01 09/22/24 09:01 09/22/24 09:01 09/22/24 09:01
Last Documented Vital Signs
Temp Pulse Resp Pulse Ox
97.8 F 69 22 95
09/22/24 09:01 09/22/24 09:45 09/22/24 09:45 09/22/24 10:00
<Alberto Magaña, DO - Last Filed: 09/22/24 10:25>
Orders/Labs/Results
Orders:
Orders
09/22/24 09:19
Electrocardiogram (*1) Stat
Reason for Study: Other
Other Reason for Exam: pneumonia
EKG- Treatment ONCE
CR Chest - 2 Views Urgent
Comment:
Reason For Exam: cvough
09/22/24 09:49
Complete Blood Count/With Diff Urgent
Comprehensive Metabolic Panel Urgent
09/22/24 10:19
CT Chest PE Study Urgent
Comment:
Reason For Exam: Hemoptysis
Ipratropium/Albuterol Sulfate [Duoneb] 3 ml INH R NOW ONE
09/22/24 10:20
Pantoprazole [Protonix IV] 40 mg IV NOW STA
Abnormal Lab Results
09/22/24
09:49
RBC 3.94 L 10^6/uL
(4.70-6.10)
MCV 102.5 H fL
(80.0-94.0)
MCH 34.0 H pg
(27.0-31.0)
RDW 14.6 H %
(11.5-14.5)
MPV 10.9 H fL
(7.4-10.4)
Abs Immat Gran (auto) 0.1 H 10^3/uL
(0-0.05)
Immature Gran % 0.8 H %
(0-0.5)
Lymphocytes % 15.7 L %
(20.5-51.1)
Carbon Dioxide 31 H mmol/L
(22-30)
BUN 44 H mg/dl
(9-20)
09/22/24 09:49
09/22/24 09:49
Vital Signs
Initial and Last Documented VS:
Initial Vital Signs
Temp Pulse Resp Pulse Ox
97.8 F 68 20 98
09/22/24 09:01 09/22/24 09:01 09/22/24 09:01 09/22/24 09:01
Last Documented Vital Signs
Temp Pulse Resp Pulse Ox
97.8 F 69 22 95
09/22/24 09:01 09/22/24 09:45 09/22/24 09:45 09/22/24 10:00
<Alberto Magaña DO - Last Filed: 09/22/24 10:25>
*Radiology
Radiology exam reviewed: preliminary read by ED provider
*Pulse Oximetry
Patient hypoxic: no
*EKG
Interpreted by ED Provider?: Yes
Interpretation: abnormal
Comparison EKG: no changes
Heart Rate: 78
Rate: normal
Rhythm: atrial flutter
Ischemia: non-specific ST changes
*Umbrella Cutter Interpretation
Rate: normal
Interpretation: normal
Heart Rate: 78
Rhythm: atrial flutter
*Critical Care Note
Total Time (30-74mins, 75-104mins- exclusive of procedures): 6
ED Attending Note
<ST Maria GuadalupePA - Last Filed: 09/22/24 10:34>
-
Portions of this chart may have been created with voice recognition software.� Occasional wrong word or��sound alike� substitutions may have occurred due to the inherent limitations of voice recognition software.
<Alberto Magaña DO - Last Filed: 09/22/24 10:25>
ED Attending Note
Patient seen and examined by attending physician: Yes
I performed a history and physical exam of patient and discussed management with resident, I reviewed resident's note and agree with documented findings and plan of care.: Yes
ED Attending Note:
Seen with student examined independently 84-year-old male A-flutter on Eliquis smoker presents with hemoptysis fatigue dizziness also some dark stools no fever, wheezing a bit on exam, x-ray noted will check CT, low threshold to admit was started on
PPI
Discharge Plan
Departure
Prescriptions:
No Action
atorvastatin [Lipitor] 80 MG tablet
80 mg PO DAILY
albuterol sulfate 2.5 mg /3 mL (0.083 %) Solution For Nebulization
2.5 mg INHALATION R TID
hydrocodone-acetaminophen 10-325 mg Tablet
1 tab PO TIDPRN PRN (Reason: chronic back pain)
Patient Comments:
10/28/2023: last filled 09/26/23, 90 tabs for 30 days from [facility]#[id number]
tamsulosin 0.4 mg Capsule
0.4 mg PO HS
albuterol sulfate 90 mcg/actuation Hfa Aerosol Inhaler
2 puff INHALATION R Q4HPRN PRN (Reason: sob)
guaifenesin [Mucinex] 600 mg Tablet Extended Release 12hr
600 mg PO BID
Trelegy Ellipta 200-62.5-25 mcg Blister With Device
1 inh INHALATION R DAILY
metoprolol succinate [Toprol XL] 25 mg tablet extended release 24 hr
12.5 mg PO DAILY Qty: 30 0RF
pantoprazole [Protonix] 40 mg tablet,delayed release (DR/EC)
40 mg PO BID Qty: 60 2RF
ferrous sulfate [FeroSul] 325 mg (65 mg iron) tablet
325 mg PO DAILY
irbesartan 150 mg tablet
150 mg PO DAILY
bb-bjt-AN-Bg-Cf-yldokvl-lutein 0.4-162-18 mg Tablet
1 tab PO DAILY
Eliquis 2.5 mg Tablet
2.5 mg PO BID Qty: 60 0RF
prednisone 10 mg tablet
40 mg PO DAILY Qty: 30 0RF
Rx Instructions:
40 mg X3 days , 30 mg X3 days, 20 mg X3 days,10 mg X3 days
furosemide [Lasix] 20 mg tablet
20 mg PO .every other day Qty: 20 0RF
Referrals:
Jessica Madrigal PA [Family Provider] -
Interventions
Interventions:
*Risk Screen - Suicide Last Done: 09/22/24 09:58
*General Assessment Last Done: 09/22/24 09:58
*Neglect/Abuse Screening Last Done: 09/22/24 09:58
*ED- Fall Risk Assessment Last Done: 09/22/24 09:58
*ED COVID-19 Vaccine History Last Done: 09/22/24 09:58
ED- Pulmonary Assessment Last Done: 09/22/24 10:00
Discharge Date and Time
Print Language: HUNGARIAN
[2024-09-22 09:47] VITALS: BMI 18.7
[2024-09-22 10:06] VITALS: BP 126/69
[2024-09-22 10:06] LABS: % Basophils 0.5 % (0-2); % Eosinophils 3.3 % (0-6); % Immature Granulocytes 0.8 % (0-0.5); % Lymphocytes 15.7 % (20.5-51.1); % Monocytes 7.2 % (1.7-9.3); % Neutrophils 72.5 % (42.2-75.2); Absolute Eosinophils 0.3 10^3/uL (0-0.7); Absolute Immature Granulocytes 0.1 10^3/uL (0-0.05); Absolute Lymphocytes 1.2 10^3/uL (1.2-3.4); Absolute Monocytes 0.6 10^3/uL (0.1-0.6); Absolute Neutrophils 5.5 10^3/uL (1.4-6.5); Hematocrit 40.4 % (39.0-52.0); Hemoglobin 13.4 g/dL (13.0-18.0); Mean Corp Hgb Conc. 33.2 g/dL (33.0-37.0); Mean Corpuscular Volume 102.5 fL (80.0-94.0); Mean Platelet Volume 10.9 fL (7.4-10.4); Nucleated Red Blood Cells % 0 % (-); Platelet Count 210 10^3/uL (130-400); Red Blood Cell Count 3.94 10^6/uL (4.70-6.10); Red Cell Dist. Width 14.6 % (11.5-14.5); White Blood Cell Count 7.6 10^3/uL (4.8-10.8)
[2024-09-22 10:11] LABS: ALT (SGPT) 17 U/L (0-50); AST (SGOT) 27 U/L (17-59); Albumin 4.2 g/dl (3.5-5.0); Alkaline Phosphatase 85 U/L (38-126); Blood Urea Nitrogen 44 mg/dl (9-20); Calcium 9.4 mg/dl (8.4-10.2); Carbon Dioxide 31 mmol/L (22-30); Chloride 102 mmol/L (98-107); Estimated Creatinine Clearance 40 ml/min; Glucose 93 mg/dl (70-99); Potassium 4.7 mmol/L (3.5-5.1); Sodium 142 mmol/L (135-145); Total Bilirubin 0.7 mg/dl (0.2-1.3); eGFR > 60.00
[2024-09-22] MEDS: DUONEB 3 ML INH (10:39)
[2024-09-22] MEDS: PROTONIX IV 40 MG IV (10:39)
[2024-09-22] MEDS: VIBRAMYCIN 100 MG PO (12:44)
--- NOTE | 2024-09-22 16:34 | CON.HOSP ---
Consultation
-
Date/Time Consultation Requested: 09/22/24 1100
Date/Time Consultation Performed: 09/22/24 1130
Requesting Provider: Dr Alberto Magaña
Performing Provider: Dr Dale Powell
Reason for Consultation: hemoptysis
Family Physician
-
Family Physician: Jessica Madrigal
Chief Complaint
-
Hemoptysis
History of Present Illness
Patient is a 84-year-old male with past medical history of COPD, active smoker, history of pleural effusion, history of peptic ulcer disease, history of abdominal aortic aneurysm, coronary disease, chronic bronchitis, atrial fibrillation/flutter on
Eliquis was brought in by daughter for patient having on and off blood in cough for last 2 weeks. Patient mainly notices tiny amount of blood in cough upon waking up first thing in the morning. There was also reported melena. No associated fever
or shortness of breath. In light of persistent symptoms daughter brought patient in for evaluation. Patient not hypoxic in ER not voicing any complaints. No associated complaints of dizziness/chest pain/palpitation/abdominal
pain/nausea/vomiting/diarrhea/dysuria
Medical History
Past Medical History
Past Medical History: Reports Other
Additional Past Medical History:
COPD, active smoker, history of pleural effusion, history of peptic ulcer disease, history of abdominal aortic aneurysm, coronary disease, chronic bronchitis, atrial fibrillation/flutter
Past Surgical History: Reports Other
Social History
Tobacco: Smoker (Half to one pack/day)
Alcohol: Occasional
Drug: None
Living: With Family
Allergies / Home Medications
Allergies reflects when Allergies were last updated in [employer].
Home Medications with original date entered in [employer]
Allergy/Medication List:
Allergies
Allergy/AdvReac Type Severity Reaction Status Date / Time
venom-honey bee Allergy [id number] Verified 09/22/24 09:04
CLOSES
Home Medications
atorvastatin 80 mg tablet (Lipitor) 80 mg PO QPM High Cholesterol 05/17/09
albuterol sulfate 2.5 mg/3 mL (0.083 %) solution for nebulization 2.5 mg inhalation R TIDPRN PRN sob 08/20/23
albuterol sulfate 90 mcg/actuation aerosol inhaler 2 puff inhalation R Q4HPRN PRN sob 08/20/23
fluticasone fur. 200 mcg-umeclid 62.5 mcg-vilant 25 mcg inhalat.powder (Trelegy Ellipta) 1 inh inhalation R DAILY Lung/Breathing Issues 08/20/23
guaifenesin 600 mg tablet, extended release 12 hr (Mucinex) 600 mg PO BIDPRN PRN cough 08/20/23
hydrocodone 10 mg-acetaminophen 325 mg tablet 1 tab PO TIDPRN PRN chronic back pain 08/20/23
tamsulosin 0.4 mg capsule 0.4 mg PO HS Urinary Issue 08/20/23
pantoprazole 40 mg tablet,delayed release (Protonix) 40 mg PO BID #60 tabs 08/31/23
ferrous sulfate 325 mg (65 mg iron) tablet (FeroSul) 325 mg PO DAILY 10/28/23
irbesartan 150 mg tablet 150 mg PO DAILY 10/28/23
ivgxhmoc-jhy-NR 0.4 mg-calcium 162 mg-iron 18 et-lozgrpt-kmuych tablet (Centravites) 1 tab PO DAILY 10/28/23
Prevagen 1 cap PO DAILY 09/22/24
apixaban 5 mg tablet (Eliquis) 5 mg PO BID 09/22/24
docusate sodium 100 mg capsule (Colace) 100 mg PO HS 09/22/24
doxycycline hyclate 100 mg tablet 100 mg PO BID 10 days #20 tabs 09/22/24
furosemide 20 mg tablet (Lasix) 20 mg PO Q48H 09/22/24
ipratropium 0.5 mg-albuterol 3 mg (2.5 mg base)/3 mL nebulization soln 3 ml inhalation Q4H PRN shortness of breath #180 mL 09/22/24
metoprolol succinate 25 mg tablet,extended release 24 hr (Toprol XL) 25 mg PO DAILY 09/22/24
Review of Systems
-
A 12 point Review of Systems was completed except as noted: Yes
Physical Exam
Vital Signs
Vital Signs
Temp Pulse Resp BP Pulse Ox
97.8 F 64 18 126/69 98
09/22/24 09:01 09/22/24 12:45 09/22/24 12:45 09/22/24 10:06 09/22/24 12:30
Physical Exam
General: Well Developed, Well Nourished and No Apparent Distress
HEENT: Normocephalic, Moist Mucous Membranes and Atraumatic
Respiratory: Clear
Cardiac: S1/S2 and Regular Rhythm; Negative Murmur or Rub
GI: Soft, Non Tender, Non Distended and Normal Bowel Sounds
Rectal: Deferred by Provider
Musculoskeletal: No Clubbing, No Cyanosis and No Edema
Skin: Negative Rash
Neuro: Nonfocal/Grossly Intact
Laboratory Results
-
Laboratory Results
09/22/24 09:49
09/22/24 09:49
Total Bilirubin 0.7 mg/dl (0.2-1.3) 09/22/24 09:49
AST 27 U/L (17-59) 09/22/24 09:49
ALT 17 U/L (0-50) 09/22/24 09:49
Alkaline Phosphatase 85 U/L (38-126) 09/22/24 09:49
Impression / Plan
-
CT chest PE
1. Negative for pulmonary embolism.
2. Right lung findings as above most consistent with bronchiolitis, most likely infectious bronchiolitis. This is significantly progressed as compared to previous examination. Likely associated mild right hilar adenopathy.
3. Emphysema. Diffuse bronchial wall thickening probably related to chronic bronchitis. Secretions at the adam and within bronchus intermedius.
4. Advanced coronary and aortic atherosclerosis. Question aortic ductus diverticulum as seen previously.
5. Cardiomegaly, slightly increased as compared with previous examination.
Hemoptysis
- Ongoing for last 2 weeks, minimal and mainly in the morning after waking up
- Patient history of COPD and continues to remain active smoker
- Lung examination relatively clear bedside minimal wheezing which is chronic at baseline per family
- Patient not requiring any oxygen
- CT chest PE done and ruled out any pulmonary embolism some changes of bronchiolitis
- Case discussed with pulmonology who recommended patient to follow-up in the office
- Discussed with ER physician patient to be discharged home from ER
- Pulmonology recommended patient to be provided 10 days of doxycycline therapy and DuoNeb nebulizer therapy
== END 2024-09-22 12:57 | disposition home or self-care (01) ==
LOC: EMR 08:59
PROVIDERS: EMERGENCY PHYSICIAN Emergency Medicine; FAMILY PHYSICIAN Family Medicine
DX: J44.1 Chronic obstructive pulmonary disease with (acute) exacerbation (principal); R04.2 Hemoptysis; R05.9 Cough, unspecified; J43.9 Emphysema, unspecified; I25.10 Atherosclerotic heart disease of native coronary artery without angina pectoris; I11.0 Hypertensive heart disease with heart failure; I50.9 Heart failure, unspecified; I48.91 Unspecified atrial fibrillation; F17.210 Nicotine dependence, cigarettes, uncomplicated; Z79.01 Long term (current) use of anticoagulants; Z79.899 Other long term (current) drug therapy; Z82.49 Family history of ischemic heart disease and other diseases of the circulatory system; Z86.79 Personal history of other diseases of the circulatory system; Z87.11 Personal history of peptic ulcer disease; Z91.030 Bee allergy status
CPT/HCPCS: 99284; 71046; 71275; 80053; 85025; 93005; Q9967